=== PATIENT | female | born 2000 | race Caucasian/White ===

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

== ENCOUNTER 2019-02-28 20:21 | Inpatient (IN) | payer MEDICAID ==
[2019-02-28] MEDS ORDERED: Ondansetron 4 MG/2 ML SDV IVPUSH ONE (21:07)
[2019-02-28] MEDS ORDERED: Sodium Chloride 0.9% 1,000 ML IV SCH ×2 (21:15→23:00)
[2019-02-28] MEDS: Sodium Chloride 0.9% 10 ML Syringe FLUSH PRN (21:32)
[2019-02-28] MEDS ORDERED: Potassium Chloride 10 MEQ in Premix Bag 1 BAG IV ONE (22:54)
[2019-02-28] MEDS ORDERED: cefTRIAXone 1 GM in Sodium Chloride 0.9% 100 ML IV ONE (23:07)
--- NOTE | 2019-02-28 23:09 | EDM.PDOC ---
ED HPI GENERAL MEDICAL PROBLEM - General Chief Complaint: General Stated Complaint: 9wks pg vomiting fever headache Time Seen by Provider: 02/28/19 20:45 Source of Information: Reports: Patient, RN Notes Reviewed - History of Present Illness INITIAL COMMENTS - FREE TEXT/NARRATIVE: 18-year-old female had a onset symptoms of bladder infection about 2 or 3 days ago. She did call into the clinic yesterday, did have a urinalysis checked which did show UTI. Started on doxycycline. However symptoms of nausea vomiting worsened yesterday afternoon and evening and she continued with quite severe difficulty with further nausea vomiting today. He states she's been unable to eat today and difficulty keeping any type of clear liquids down. She feels weak and dizzy this evening. Did have fever chills earlier today, continues with chills this evening. She is about 9 weeks 3 para 1. She did have some difficulty with morning sickness early in the but had been doing relatively well up until a couple of days ago. No abdominal or pelvic pain or cramping at this time. No chest pain or difficulty breathing. 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 REFINER: Reports: Acetaminophen - Related Data Allergies Allergy/AdvReac Type Severity Reaction Status Date / Time latex Allergy Rash Verified 12/08/18 15:44 peanut Allergy Anaphylactic Verified 12/08/18 15:44 Shock Penicillins Allergy Anaphylactic Verified 12/08/18 15:44 Shock shellfish derived Allergy Anaphylactic Verified 12/08/18 15:44 Shock Home Meds: Home Meds ALPRAZolam [Alprazolam] 0.25 mg PO BID 12/08/18 [History] Escitalopram [Lexapro] 10 mg PO DAILY 12/08/18 [History] Ondansetron HCl [Zofran] 8 mg PO Q8H PRN 12/08/18 [History] Vits #93/Iron Fum/FA [ Formula Tablet] 1 tab PO DAILY 12/08/18 [History] Acetaminophen/oxyCODONE [Percocet 325-5 MG] 2 tab PO Q4H PRN tablet 12/09/18 [ Rx] Ibuprofen 600 mg PO Q4H PRN #30 tablet 12/09/18 [Rx] Past Medical History Cardiovascular History: Reports: None Respiratory History: Reports: None Gastrointestinal History: Reports: GERD, PUD Other Gastrointestinal History: gastric ulcer Genitourinary History: Reports: UTI, Recurrent CUSTOMER CONTACT SPECIALIST History: Reports: Endometriosis, , Spontaneous , Other ( See Below) Other CUSTOMER CONTACT SPECIALIST History: AMENORRHEA, DERMOID CYST OF OVARY, GBS+ Musculoskeletal History: Reports: None Neurological History: Reports: Headaches, Chronic, Other (See Below) Other Neuro History: DIZZINESS, SYNCOPE Psychiatric History: Reports: Anxiety, Depression Other Psychiatric History: off medication since being . went off meds 9 weeks ago Endocrine/Metabolic History: Reports: None Hematologic History: Reports: Anemia Immunologic History: Reports: None Oncologic (Cancer) History: Reports: None Dermatologic History: Reports: None - Past Surgical History Head Surgeries/Procedures: Reports: None HEENT Surgical History: Reports: Oral Surgery Other HEENT Surgeries/Procedures: wisdom teeth removal Cardiovascular Surgical History: Reports: None Respiratory Surgical History: Reports: None Female Surgical History: Reports: D&C, Other (See Below) Other Female Surgeries/Procedures: 2-para 1; misscarriage Endocrine Surgical History: Reports: None Musculoskeletal Surgical History: Reports: None Oncologic Surgical History: Reports: None Dermatological Surgical History: Reports: None Social & Family History - Family History Family Medical History: Noncontributory Cardiac: Reports: OK Respiratory: Reports: Asthma, COPD Neurological: Reports: CVA Psychiatric: Reports: Bipolar Oncologic: Reports: Bladder, Breast, Lung - Tobacco Use Smoking Status *Q: Never Smoker - Caffeine Use Caffeine Use: Reports: Tea - Recreational Drug Use Recreational Drug Use: No - Living Situation & Occupation Living situation: Reports: Single, with Significant Other (Boyfriend), with Family ( ) Occupation: Unemployed ED ROS GENERAL - Review of Systems Review Of Systems: See Below Constitutional: Reports: Fever, Chills, Weakness (Generalized), Decreased Appetite HEENT: Denies: Sinus Problem, Throat Pain Respiratory: Denies: Shortness of Breath, Pleuritic Chest Pain Cardiovascular: Denies: Chest Pain GI/Abdominal: Reports: Abdominal Pain (Intermittent abdominal cramps), Nausea, Vomiting (Severe repetitive) : Reports: Dysuria, Frequency (Mild), Urgency Musculoskeletal: Reports: Back Pain (Mild) Skin: Reports: No Symptoms Neurological: Reports: Dizziness ED EXAM, GENERAL - Physical Exam Exam: See Below General Appearance: Alert, Mild Distress Eye Exam: Bilateral Eye: PERRL Throat/Mouth: Other (Oral mucosa is dry) Head: No: Facial Swelling Neck: Supple Respiratory/Chest: No Respiratory Distress, Lungs Clear, Normal Breath Sounds Cardiovascular: Tachycardia GI/Abdominal: Soft, Tender (Mild upper abdominal tenderness, lower abdomen nontender). No: Guarding, Rebound Back Exam: CVA Tenderness (L), CVA Tenderness (R) (Mild), Other Extremities: Normal Inspection, Normal Range of Motion. No: Pedal Edema Skin Exam: Warm, Dry, Pallor. No: Rash Course - Vital Signs Last Recorded V/S: Last Vital Signs Temp 98.6 F 02/28/19 20:27 Pulse 114 H 02/28/19 20:27 Resp 18 02/28/19 20:27 BP 128/63 02/28/19 20:27 Pulse Ox 96 02/28/19 20:27 - Orders/Labs/Meds Orders: Active Orders 24 hr Category Date Time Status Peripheral IV Care [RC] . DIRECTED Care 02/28/19 21:08 Active Potassium Chloride [KCl 10 MEQ in Water 100 ML] 10 meq Med 02/28/19 22:54 Active Premix Bag 1 bag IV ONETIME Sodium Chloride 0.9% [Normal Saline] 1,000 ml Med 02/28/19 23:00 Active IV ASDIRECTED Sodium Chloride 0.9% [Normal Saline] 1,000 ml Med 02/28/19 21:15 Active IV ONETIME Sodium Chloride 0.9% [Saline Flush] Med 02/28/19 21:08 Active 10 ml FLUSH ASDIRECTED PRN cefTRIAXone [Rocephin] 1 gm Med 02/28/19 23:07 Active Sodium Chloride 0.9% [Normal Saline] 100 ml IV ONETIME Peripheral IV Insertion Adult [OM.PC] Stat Oth 02/28/19 21:07 Ordered Medication Orders Sodium Chloride (Normal Saline) 1,000 mls @ 999 mls/hr IV ONETIME PASQUALE Last Admin: 02/28/19 21:32 Dose: 999 mls/hr Potassium Chloride 10 meq/ (Premix) 100 mls @ 100 mls/hr IV ONETIME ONE Stop: 02/28/19 23:53 Sodium Chloride (Normal Saline) 1,000 mls @ 500 mls/hr IV ASDIRECTED PASQUALE Ceftriaxone Sodium 1 gm/ (Sodium Chloride) 100 mls @ 200 mls/hr IV ONETIME ONE Stop: 02/28/19 23:36 Sodium Chloride (Saline Flush) 10 ml FLUSH ASDIRECTED PRN PRN Reason: Keep Vein Open Last Admin: 02/28/19 21:32 Dose: 10 ml Labs: Laboratory Tests 02/28/19 02/28/19 02/28/19 Range/Units 21:33 21:33 21:33 WBC 12.42 H (3.98-10.04) K/mm3 RBC 4.21 (3.98-5.22) M/mm3 Hgb 9.6 L (11.2-15.7) gm/L Hct 30.5 L (34.1-44.9) % MCV 72.4 L (79.4-94.8) fl MCH 22.8 L (25.6-32.2) pg MCHC 31.5 L (32.2-35.5) g/dl RDW Std Deviation 45.0 (36.4-46.3) fL Plt Count 146 L (182-369) K/mm3 MPV 11.2 (9.4-12.3) fl Neutrophils % (Manual) 83 H (40-60) % Band Neutrophils % 0 (0-10) % Lymphocytes % (Manual) 14 L (20-40) % Atypical Lymphs % 1 % Monocytes % (Manual) 2 (2-10) % Eosinophils % (Manual) 0 L (0.7-5.8) % Basophils % (Manual) 0 L (0.1-1.2) Platelet Estimate Adequate Polychromasia Few Anisocytosis 1+ slight Microcytosis 1+ slight Ovalocytes Few RBC Morph Comment Not Reportable Sodium 132 L (136-145) mEq/L Potassium 2.6 L (3.5-5.1) mEq/L Chloride 99 (98-107) mEq/L Carbon Dioxide 20 L (21-32) mEq/L Anion Gap 15.6 H (5-15) BUN 6 L (7-18) mg/dL Creatinine 0.7 (0.55-1.02) mg/dL Est Cr Clr Drug Dosing 111.62 mL/min Estimated GFR (MDRD) > 60 (>60) mL/min BUN/Creatinine Ratio 8.6 L (14-18) Glucose 133 H (74-106) mg/dL Calcium 8.6 (8.5-10.1) mg/dL Total Bilirubin 0.4 (0.2-1.0) mg/dL AST 17 (15-37) U/L ALT 23 (14-59) U/L Alkaline Phosphatase 89 (46-116) U/L C-Reactive Protein 21.2 H* (<1.0) mg/dL Total Protein 7.3 (6.4-8.2) g/dl Albumin 3.0 L (3.4-5.0) g/dl Globulin 4.3 gm/dL Albumin/Globulin Ratio 0.7 L (1-2) Urine Color (Yellow) Urine Appearance (Clear) Urine pH (5.0-8.0) Ur Specific [place] (1.005-1.030) Urine Protein (Negative) Urine Glucose (UA) (Negative) Urine Ketones (Negative) Urine Occult Blood (Negative) Urine Nitrite (Negative) Urine Bilirubin (Negative) Urine Urobilinogen (0.2-1.0) Ur Leukocyte Esterase (Negative) Urine RBC (0-5) /hpf Urine WBC (0-5) /hpf Urine WBC Clumps (NOT SEEN) /hpf Ur Squamous Epith Cells (0-5) /hpf Ur Transition Epith Cell (0-5) Ur Renal Epithelial Cell (0-5) /hpf Urine Bacteria (FEW) /hpf Hyaline Casts (0-5) /lpf Urine Mucus (FEW) /hpf 02/28/19 Range/Units 21:53 WBC (3.98-10.04) K/mm3 RBC (3.98-5.22) M/mm3 Hgb (11.2-15.7) gm/L Hct (34.1-44.9) % MCV (79.4-94.8) fl MCH (25.6-32.2) pg MCHC (32.2-35.5) g/dl RDW Std Deviation (36.4-46.3) fL Plt Count (182-369) K/mm3 MPV (9.4-12.3) fl Neutrophils % (Manual) (40-60) % Band Neutrophils % (0-10) % Lymphocytes % (Manual) (20-40) % Atypical Lymphs % % Monocytes % (Manual) (2-10) % Eosinophils % (Manual) (0.7-5.8) % Basophils % (Manual) (0.1-1.2) Platelet Estimate Polychromasia Anisocytosis Microcytosis Ovalocytes RBC Morph Comment Sodium (136-145) mEq/L Potassium (3.5-5.1) mEq/L Chloride (98-107) mEq/L Carbon Dioxide (21-32) mEq/L Anion Gap (5-15) BUN (7-18) mg/dL Creatinine (0.55-1.02) mg/dL Est Cr Clr Drug Dosing mL/min Estimated GFR (MDRD) (>60) mL/min BUN/Creatinine Ratio (14-18) Glucose (74-106) mg/dL Calcium (8.5-10.1) mg/dL Total Bilirubin (0.2-1.0) mg/dL AST (15-37) U/L ALT (14-59) U/L Alkaline Phosphatase (46-116) U/L C-Reactive Protein (<1.0) mg/dL Total Protein (6.4-8.2) g/dl Albumin (3.4-5.0) g/dl Globulin gm/dL Albumin/Globulin Ratio (1-2) Urine Color Light yellow (Yellow) Urine Appearance Cloudy H (Clear) Urine pH 6.0 (5.0-8.0) Ur Specific [place] 1.020 (1.005-1.030) Urine Protein 3+ H (Negative) Urine Glucose (UA) Negative (Negative) Urine Ketones Trace H (Negative) Urine Occult Blood 1+ H (Negative) Urine Nitrite Positive H (Negative) Urine Bilirubin Negative (Negative) Urine Urobilinogen 1.0 (0.2-1.0) Ur Leukocyte Esterase 1+ H (Negative) Urine RBC 5-10 H (0-5) /hpf Urine WBC 50-75 H (0-5) /hpf Urine WBC Clumps Many (NOT SEEN) /hpf Ur Squamous Epith Cells 0-5 (0-5) /hpf Ur Transition Epith Cell 0-5 (0-5) Ur Renal Epithelial Cell 0-5 (0-5) /hpf Urine Bacteria Moderate H (FEW) /hpf Hyaline Casts 0-5 (0-5) /lpf Urine Mucus Few (FEW) /hpf Meds: Medications Generic Name Dose Route Start Last Admin Trade Name Freq PRN Reason Stop Dose Admin Sodium Chloride 1,000 mls @ 999 mls/hr 02/28/19 21:15 02/28/19 21:32 Normal Saline IV 999 mls/hr ONETIME PASQUALE Administration Potassium Chloride 10 meq/ 100 mls @ 100 mls/hr 02/28/19 22:54 Premix IV 02/28/19 23:53 ONETIME ONE Sodium Chloride 1,000 mls @ 500 mls/hr 02/28/19 23:00 Normal Saline IV ASDIRECTED PASQUALE Ceftriaxone Sodium 1 gm/ 100 mls @ 200 mls/hr 02/28/19 23:07 Sodium Chloride IV 02/28/19 23:36 ONETIME ONE Sodium Chloride 10 ml 02/28/19 21:08 02/28/19 21:32 Saline Flush FLUSH 10 ml ASDIRECTED PRN Administration Keep Vein Open Discontinued Medications Generic Name Dose Route Start Last Admin Trade Name Freq PRN Reason Stop Dose Admin Ondansetron HCl 4 mg 02/28/19 21:07 02/28/19 21:32 Zofran IVPUSH 02/28/19 21:08 4 mg ONETIME ONE Administration - Re-Assessments/Exams Free Text/Narrative Re-Assessment/Exam: 02/28/19 23:25 Initial treatment was with 1 L normal saline and Zofran 4 mg IV. With that she' s had no further vomiting while here in the ED. However her white blood count has come back mildly elevated at 12,400, 83 segs 0 bands. C-reactive protein is quite elevated at 21.2. CO2 is low at 20, potassium very low at 2.6. UA shows moderate bacteria with many WBCs nitrite and leukocyte positive. She does have symptoms and findings compatible with pyelonephritis. Patient will definitely benefit him admission, IV antibiotics, IV fluid, IV potassium. IV potassium has been ordered. She does have history of penicillin allergy which occurred 7 years ago at age 11. She states she did have some swelling of her throat, not sure if there was a rash or hives. We'll start with a test dose of Rocephin make sure she tolerates that before infusing remainder of dosage. Departure - Departure Time of Disposition: 23:08 Disposition: Admitted As Inpatient 65 Condition: Serious Clinical Impression: First trimester , Pyelonephritis, Hypokalemia, Dehydration - Discharge Information Referrals: Cresencio Bravo MD [Primary Care Provider] - Forms: ED Department Discharge ED Communication - Discussed Case With (1) Discussed Case With (1): Admitting Provider (Dr Bravo, decision to admit at about 23:00) - My Orders Last 24 Hours: My Active Orders 02/28/19 21:07 Peripheral IV Insertion Adult [OM.PC] Stat 02/28/19 21:08 Peripheral IV Care [RC] . DIRECTED Sodium Chloride 0.9% [Saline Flush] 10 ml FLUSH ASDIRECTED PRN 02/28/19 21:15 Sodium Chloride 0.9% [Normal Saline] 1,000 ml IV ONETIME 02/28/19 22:54 Potassium Chloride [KCl 10 MEQ in Water 100 ML] 10 meq Premix Bag 1 bag IV ONETIME 02/28/19 23:00 Sodium Chloride 0.9% [Normal Saline] 1,000 ml IV ASDIRECTED 02/28/19 23:07 cefTRIAXone [Rocephin] 1 gm Sodium Chloride 0.9% [Normal Saline] 100 ml IV ONETIME - Assessment/Plan Last 24 Hours: My Active Orders 02/28/19 21:07 Peripheral IV Insertion Adult [OM.PC] Stat 02/28/19 21:08 Peripheral IV Care [RC] . DIRECTED Sodium Chloride 0.9% [Saline Flush] 10 ml FLUSH ASDIRECTED PRN 02/28/19 21:15 Sodium Chloride 0.9% [Normal Saline] 1,000 ml IV ONETIME 02/28/19 22:54 Potassium Chloride [KCl 10 MEQ in Water 100 ML] 10 meq Premix Bag 1 bag IV ONETIME 02/28/19 23:00 Sodium Chloride 0.9% [Normal Saline] 1,000 ml IV ASDIRECTED 02/28/19 23:07 cefTRIAXone [Rocephin] 1 gm Sodium Chloride 0.9% [Normal Saline] 100 ml IV ONETIME
[2019-03-01] MEDS: Ondansetron 4 MG/2 ML SDV IVPUSH PRN ×3 (00:21→20:32)
[2019-03-01] MEDS: Acetaminophen 325 MG Tab PO PRN (00:21)
[2019-03-01] MEDS: Sodium Chloride 0.9% with KCl 1,000 ML IV SCH ×3 (02:19→20:36)
[2019-03-01] MEDS: Sodium Chloride 0.9% 10 ML Syringe FLUSH PRN (09:19)
--- NOTE | 2019-03-01 12:26 | PCM.LDHP ---
L&D History of Present Illness - General Date of Service: 03/01/19 Admit Problem/Dx: Patient Status Order with Admit Dx/Problem 02/28/19 23:21 Patient Status [ADT] Routine Admission Diagnosis/Problem Admission Diagnosis/Problem with flank pain, antepartum 03/01/19 12:18 Automated is a 18-year-old 3 para 1011 white female at 9-3/7 weeks gestational age upon the admission for left flank pain and suspected left pyelonephritis. She reports a slow increase in pain left lower quadrant, left flank and left CVA. Also reports fever up to 103. She denies any dysuria, blood in her urine, contractions or -related problems. She does still feel with some nausea, breast tenderness and fullness in her abdomen. Dilation emergency room showed increased white blood cells and findings on urinalysis consistent with urinary tract action. Her white count was mildly elevated and she is admitted with a diagnosis of left pyelonephritis. 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 KAREN of 09/30/2019 based upon an LMP of and supported by ultrasound done early in the . Past medical history: 1. Vaginal delivery 1. 2. Anxiety and depression 3. Left ovarian dermoid cyst-removed. 4. uterine bleeding Past surgical history 1. Auxier teeth extraction 2. D&C 2 for bleeding 3. 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 Father is Jemal Schreiber and she does not use any significant loss of alcohol, drugs or tobacco. Review of systems: Patient this time reports left CVA tenderness, left flank pain and some discomfort in the area of her bladder. She does report symptoms. Denies any bleeding. Skin: Negative Lungs: No infectious symptoms or shortness of breath Cardiovascular: No chest pain or exercise intolerance Breasts: No lumps, changes in size, pain, dimpling, discharge or axillary or supraclavicular concerns. GI: Negative : See history of present illness Musculoskeletal: Negative Neurological: Negative In general the patient is well-developed, well-nourished, pleasant female of stated age in mild discomfort secondary to left flank pain and CVA tenderness. Skin is warm dry without lesions. HEENT, neck and back within normal limits. Lungs are clear with good breath sounds in all lung abbasi. Cardiovascular exam shows regular and rhythm without murmurs. Abdomen is flat, soft, obese, tenderness in the superior area. Left lower quadrant minimal discomfort noted. No inguinal lymphadenopathy or hernias are noted. Genital exam is deferred. Extremities and neurological exam are grossly within normal limits. Source of Information: Patient History Limitations: Reports: No Limitations - Related Data Allergies/Adverse Reactions: Allergies Allergy/AdvReac Type Severity Reaction Status Date / Time latex Allergy Rash Verified 12/08/18 15:44 peanut Allergy Anaphylactic Verified 12/08/18 15:44 Shock Penicillins Allergy Anaphylactic Verified 12/08/18 15:44 Shock shellfish derived Allergy Anaphylactic Verified 12/08/18 15:44 Shock Home Medications: Home Meds ALPRAZolam [Alprazolam] 0.25 mg PO BID 12/08/18 [History] Escitalopram [Lexapro] 10 mg PO DAILY 12/08/18 [History] Ondansetron HCl [Zofran] 8 mg PO Q8H PRN 12/08/18 [History] Vits #93/Iron Fum/FA [ Formula Tablet] 1 tab PO DAILY 12/08/18 [History] Acetaminophen/oxyCODONE [Percocet 325-5 MG] 2 tab PO Q4H PRN tablet 12/09/18 [ Rx] Ibuprofen 600 mg PO Q4H PRN #30 tablet 12/09/18 [Rx] Past Medical History - Past Health History Medical/Surgical History: Denies Medical/Surgical History Cardiovascular History: Reports: None Respiratory History: Reports: None Gastrointestinal History: Reports: GERD, PUD Other Gastrointestinal History: gastric ulcer Genitourinary History: Reports: UTI, Recurrent 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 went off meds 9 weeks ago Endocrine/Metabolic History: Reports: None Hematologic History: Reports: Anemia Immunologic History: Reports: None Oncologic (Cancer) History: Reports: None Dermatologic History: Reports: None - Past Surgical History Head Surgeries/Procedures: Reports: None HEENT Surgical History: Reports: Oral Surgery Other HEENT Surgeries/Procedures: wisdom teeth removal Cardiovascular Surgical History: Reports: None Respiratory Surgical History: Reports: None Female Surgical History: Reports: D&C, Other (See Below) Other Female Surgeries/Procedures: 2-para 1; misscarriage Endocrine Surgical History: Reports: None Musculoskeletal Surgical History: Reports: None Oncologic Surgical History: Reports: None Dermatological Surgical History: Reports: None Social & Family History - Family History Family Medical History: Noncontributory Cardiac: Reports: NM Respiratory: Reports: Asthma, COPD Neurological: Reports: CVA Psychiatric: Reports: Bipolar Oncologic: Reports: Bladder, Breast, Lung - Tobacco Use Smoking Status *Q: Never Smoker Second Hand Smoke Exposure: No - Caffeine Use Caffeine Use: Reports: Tea - Recreational Drug Use Recreational Drug Use: No - Living Situation & Occupation Living situation: Reports: Single, with Significant Other (Boyfriend), with Family ( infant) Occupation: Unemployed H&P Review of Systems - Review of Systems: Review Of Systems: See Below L&D Exam - Exam Exam: See Below - Vital Signs Vital Signs: Last Vital Signs Temp 36.6 C 03/01/19 08:41 Pulse 74 03/01/19 08:41 Resp 14 03/01/19 08:41 BP 99/63 03/01/19 08:41 Pulse Ox 100 03/01/19 08:41 Weight: 80.739 kg - Patient Data Lab Results Last 24 hrs: Laboratory Results - last 24 hr 02/28/19 02/28/19 02/28/19 Range/Units 21:33 21:33 21:33 WBC 12.42 H (3.98-10.04) K/mm3 RBC 4.21 (3.98-5.22) M/mm3 Hgb 9.6 L (11.2-15.7) gm/L Hct 30.5 L (34.1-44.9) % MCV 72.4 L (79.4-94.8) fl MCH 22.8 L (25.6-32.2) pg MCHC 31.5 L (32.2-35.5) g/dl RDW Std Deviation 45.0 (36.4-46.3) fL Plt Count 146 L (182-369) K/mm3 MPV 11.2 (9.4-12.3) fl Neutrophils % (Manual) 83 H (40-60) % Band Neutrophils % 0 (0-10) % Lymphocytes % (Manual) 14 L (20-40) % Atypical Lymphs % 1 % Monocytes % (Manual) 2 (2-10) % Eosinophils % (Manual) 0 L (0.7-5.8) % Basophils % (Manual) 0 L (0.1-1.2) Platelet Estimate Adequate Polychromasia Few Anisocytosis 1+ slight Microcytosis 1+ slight Ovalocytes Few RBC Morph Comment Not Reportable Sodium 132 L (136-145) mEq/L Potassium 2.6 L (3.5-5.1) mEq/L Chloride 99 (98-107) mEq/L Carbon Dioxide 20 L (21-32) mEq/L Anion Gap 15.6 H (5-15) BUN 6 L (7-18) mg/dL Creatinine 0.7 (0.55-1.02) mg/dL Est Cr Clr Drug Dosing 111.62 mL/min Estimated GFR (MDRD) > 60 (>60) mL/min BUN/Creatinine Ratio 8.6 L (14-18) Glucose 133 H (74-106) mg/dL Calcium 8.6 (8.5-10.1) mg/dL Total Bilirubin 0.4 (0.2-1.0) mg/dL AST 17 (15-37) U/L ALT 23 (14-59) U/L Alkaline Phosphatase 89 (46-116) U/L C-Reactive Protein 21.2 H* (<1.0) mg/dL Total Protein 7.3 (6.4-8.2) g/dl Albumin 3.0 L (3.4-5.0) g/dl Globulin 4.3 gm/dL Albumin/Globulin Ratio 0.7 L (1-2) Urine Color (Yellow) Urine Appearance (Clear) Urine pH (5.0-8.0) Ur Specific Wallace (1.005-1.030) Urine Protein (Negative) Urine Glucose (UA) (Negative) Urine Ketones (Negative) Urine Occult Blood (Negative) Urine Nitrite (Negative) Urine Bilirubin (Negative) Urine Urobilinogen (0.2-1.0) Ur Leukocyte Esterase (Negative) Urine RBC (0-5) /hpf Urine WBC (0-5) /hpf Urine WBC Clumps (NOT SEEN) /hpf Ur Squamous Epith Cells (0-5) /hpf Ur Transition Epith Cell (0-5) Ur Renal Epithelial Cell (0-5) /hpf Urine Bacteria (FEW) /hpf Hyaline Casts (0-5) /lpf Urine Mucus (FEW) /hpf 02/28/19 03/01/19 Range/Units 21:53 06:17 WBC (3.98-10.04) K/mm3 RBC (3.98-5.22) M/mm3 Hgb (11.2-15.7) gm/L Hct (34.1-44.9) % MCV (79.4-94.8) fl MCH (25.6-32.2) pg MCHC (32.2-35.5) g/dl RDW Std Deviation (36.4-46.3) fL Plt Count (182-369) K/mm3 MPV (9.4-12.3) fl Neutrophils % (Manual) (40-60) % Band Neutrophils % (0-10) % Lymphocytes % (Manual) (20-40) % Atypical Lymphs % % Monocytes % (Manual) (2-10) % Eosinophils % (Manual) (0.7-5.8) % Basophils % (Manual) (0.1-1.2) Platelet Estimate Polychromasia Anisocytosis Microcytosis Ovalocytes RBC Morph Comment Sodium 138 (136-145) mEq/L Potassium 3.2 L (3.5-5.1) mEq/L Chloride 105 (98-107) mEq/L Carbon Dioxide 21 (21-32) mEq/L Anion Gap 15.2 H (5-15) BUN 4 L (7-18) mg/dL Creatinine 0.6 (0.55-1.02) mg/dL Est Cr Clr Drug Dosing 130.23 mL/min Estimated GFR (MDRD) > 60 (>60) mL/min BUN/Creatinine Ratio 6.7 L (14-18) Glucose 114 H (74-106) mg/dL Calcium 8.2 L (8.5-10.1) mg/dL Total Bilirubin 0.3 (0.2-1.0) mg/dL AST 15 (15-37) U/L ALT 17 (14-59) U/L Alkaline Phosphatase 77 (46-116) U/L C-Reactive Protein (<1.0) mg/dL Total Protein 6.7 (6.4-8.2) g/dl Albumin 2.6 L (3.4-5.0) g/dl Globulin 4.1 gm/dL Albumin/Globulin Ratio 0.6 L (1-2) Urine Color Light yellow (Yellow) Urine Appearance Cloudy H (Clear) Urine pH 6.0 (5.0-8.0) Ur Specific Wallace 1.020 (1.005-1.030) Urine Protein 3+ H (Negative) Urine Glucose (UA) Negative (Negative) Urine Ketones Trace H (Negative) Urine Occult Blood 1+ H (Negative) Urine Nitrite Positive H (Negative) Urine Bilirubin Negative (Negative) Urine Urobilinogen 1.0 (0.2-1.0) Ur Leukocyte Esterase 1+ H (Negative) Urine RBC 5-10 H (0-5) /hpf Urine WBC 50-75 H (0-5) /hpf Urine WBC Clumps Many (NOT SEEN) /hpf Ur Squamous Epith Cells 0-5 (0-5) /hpf Ur Transition Epith Cell 0-5 (0-5) Ur Renal Epithelial Cell 0-5 (0-5) /hpf Urine Bacteria Moderate H (FEW) /hpf Hyaline Casts 0-5 (0-5) /lpf Urine Mucus Few (FEW) /hpf Result Diagrams: 02/28/19 21:33 03/01/19 06:17 Problem List Initiated/Reviewed/Updated: Yes Orders Last 24hrs: Active Orders 24 hr Category Date Time Status Patient Status [ADT] Routine ADT 02/28/19 23:21 Active Activity as Tolerated [RC] .Routine Care 02/28/19 23:26 Active Heart Tones [RC] QSHIFT Care 02/28/19 23:27 Active Vital Signs [RC] 03,09,15,21 Care 02/28/19 23:26 Active Regular Diet [DIET] Diet 03/01/19 Breakfast Active Acetaminophen [Ofirmev] 100 ml Med 03/01/19 10:39 Active IV Q6H Acetaminophen [Tylenol] Med 02/28/19 23:25 Active 650 mg PO Q4H PRN Ondansetron [Zofran] Med 02/28/19 23:22 Active 4 mg IVPUSH Q4HR PRN Sodium Chloride 0.9% [Saline Flush] Med 02/28/19 21:08 Active 10 ml FLUSH ASDIRECTED PRN Sodium Chloride 0.9% with KCl [Normal Saline with 40 Med 03/01/19 01:30 Active mEq KCl] 1,000 ml IV ASDIRECTED Peripheral IV Insertion Adult [OM.PC] Stat Oth 02/28/19 21:07 Ordered Code Status [Resuscitation Status] Routine Resus Stat 03/01/19 01:33 Ordered Medication Orders Acetaminophen (Tylenol) 650 mg PO Q4H PRN PRN Reason: Pain Last Admin: 03/01/19 00:21 Dose: 650 mg Potassium Chloride/Sodium Chloride (Normal Saline With 40 Meq Kcl) 1,000 mls @ 150 mls/hr IV ASDIRECTED PASQUALE Last Admin: 03/01/19 11:07 Dose: 150 mls/hr Infusion: 03/01/19 09:00 Dose: 150 mls/hr Admin: 03/01/19 02:19 Dose: 150 mls/hr Acetaminophen (Ofirmev) 100 mls @ 400 mls/hr IV Q6H PRN PRN Reason: Pain Stop: 03/02/19 10:40 Last Admin: 03/01/19 11:17 Dose: 400 mls/hr Ondansetron HCl (Zofran) 4 mg IVPUSH Q4HR PRN PRN Reason: Nausea Last Admin: 03/01/19 09:19 Dose: 4 mg Admin: 03/01/19 00:21 Dose: 4 mg Sodium Chloride (Saline Flush) 10 ml FLUSH ASDIRECTED PRN PRN Reason: Keep Vein Open Last Admin: 03/01/19 09:19 Dose: 10 ml Admin: 02/28/19 21:32 Dose: 10 ml Assessment/Plan Comment:: 1. 9-3/7 week intrauterine upon admission to the hospital for left pyelonephritis 2.History of dermoid cyst (immature cystic teratoma) removed in late 2018 3. First trimester appears to be progressing well per ultrasound and lab testing 4. Hypokalemia and hyponatremia 5. Mild dehydration Plan: 1. Rocephin 1 g IV every 24 hours 2. Await urine culture results and refine oral antibiotic therapy based upon these. 3. Pain control with IV Tylenol until patient able to tolerate fluids 4. Zofran for nausea 5. IV fluids consisting of normal saline with KCl 40 mEq per liter-to be run at 150 mL an hour to treat patient's dehydration, hypokalemia, hyponatremia and a cousin patient's inability keep oral fluids down 6. Recheck electrolytes after IV fluid rehydration 7. Monitor cardiac activity if possible.
[2019-03-02] MEDS: Ondansetron 4 MG/2 ML SDV IVPUSH PRN (00:07)
[2019-03-02] MEDS: cefTRIAXone 1 GM in Sodium Chloride 0.9% 100 ML IV SCH (00:12)
[2019-03-02] MEDS: Sodium Chloride 0.9% with KCl 1,000 ML IV SCH (05:17)
[2019-03-02] MEDS: Acetaminophen 325 MG Tab PO PRN ×3 (11:07→21:39)
--- NOTE | 2019-03-02 12:31 | PCM.SN ---
- Free Text/Narrative Note: Candice is a 18-year-old multigravida female who is presently receiving Rocephin IV for pyelonephritis. She's had very slow improvement in her discomfort. She still is had 2 febrile episodes in the last 24 hours. She also was noted to have hypokalemia and hyponatremia. Both these have resolved with IV fluid therapy. Patient's had some nausea but this has improved. She is able to keep fluids down most of the time. She has symptoms. Lungs are clear with good breath sounds in all lung abbasi. Cardiovascular exam shows regular and rhythm. Acne is inking machine tender right side greater than left side. No significant abdominal tenderness is noted. Uterus is not palpated above the pubic bone at this time yet. Urine culture shows Escherichia coli which is sensitive to cephalosporins and Macrobid and Bactrim DS. Sodium is 137. Potassium is 3.8. Assessment: 1. Pyelonephritissmall degree of improvement over time of admission 2. Early pregnancyfirst trimester. Progressing well. Doppler tones are heard. Plan: 1. Continue Rocephin until patient is afebrile times at least 24 hours at which time we will transfer patient to Keflex 240 mg by mouth 4 times a day 7 more days. Monitor for short period time and then discharged from the hospital if stays stable. 2. Tylenol for discomfort 3. Zofran when necessary for nausea
[2019-03-02] MEDS: Ondansetron 4 MG Tab.DIS PO PRN ×2 (13:20→20:36)
[2019-03-03] MEDS: cefTRIAXone 1 GM in Sodium Chloride 0.9% 100 ML IV SCH (00:14)
[2019-03-03] MEDS: Acetaminophen 325 MG Tab PO PRN (04:06)
--- NOTE | 2019-03-03 05:38 | PCM.DCSUM1 ---
Discharge Summary - Hospital Course Free Text/Narrative:: Candice is a 18-year-old 3 para 1011 white female at 9-3/7 weeks gestational age upon the admission for left flank pain and suspected left pyelonephritis. She reports a slow increase in pain left lower quadrant, left flank and left CVA. Also reports fever up to 103. She denies any dysuria, blood in her urine, contractions or -related problems. She does still feel with some nausea, breast tenderness and fullness in her abdomen. Dilation emergency room showed increased white blood cells and findings on urinalysis consistent with urinary tract action. Her white count was mildly elevated and she is admitted with a diagnosis of left pyelonephritis. Patient was started on Rocephin, nausea is treated with Zofran. Initially treated with IV Tylenol than oral Tylenol for headache and for temperature elevation. She slowly made progress and over the course of the last 24 hours admission has been afebrile. Pain is improved and patient is doing well. Laboratory testing has improved and sodium and potassium have normalized with IV therapy. Urine culture returned showing Escherichia coli which is sensitive to cephalosporins. Patient is discharged home on 03/03/2019 in good condition. Diagnosis: Stroke: No - Discharge Data Discharge Date: 03/03/19 Discharge Disposition: Home, Self-Care 01 Condition: Good - Patient Instructions Diet: Regular Diet as Tolerated Activity: As Tolerated Driving: May Drive Today Showering/Bathing: May Shower (May take a bath) Notify Provider of: Fever, Increased Pain, Swelling and Redness, Nausea and/or Vomiting - Discharge Plan Prescriptions/Med Rec: Cephalexin [Keflex] 250 mg PO Q6HR #30 capsule Home Medications: Home Meds ALPRAZolam [Alprazolam] 0.25 mg PO BID 12/08/18 [History] Escitalopram [Lexapro] 10 mg PO DAILY 12/08/18 [History] Ondansetron HCl [Zofran] 8 mg PO Q8H PRN 12/08/18 [History] Vits #93/Iron Fum/FA [ Formula Tablet] 1 tab PO DAILY 12/08/18 [History] Acetaminophen/oxyCODONE [Percocet 325-5 MG] 2 tab PO Q4H PRN tablet 12/09/18 [ Rx] Ibuprofen 600 mg PO Q4H PRN #30 tablet 12/09/18 [Rx] Acetaminophen [Tylenol] 650 mg PO Q4H PRN tablet 03/03/19 [Rx] Cephalexin [Keflex] 250 mg PO Q6HR #30 capsule 03/03/19 [Rx] Forms: ED Department Discharge Referrals: Cresencio Bravo MD [Primary Care Provider] - (Return to clinicDr. Bravo1 week.) - Discharge Summary/Plan Comment DC Time >30 min.: No Discharge Summary/Plan Comment: Discharge instructions: 1. Discharge home 2. Diet, activity and follow-up discussed with patient. Recommend diet with increased calories and calcium. 3. Precautions given concern increased pain, bleeding, temperature, signs/ symptoms of DVT/PE. 4. Medications per home medication was printed, discussed with and given to the patient. 5. Return to clinic-Dr. Bravo[facility] in 1 week. Diagnosis: 1. 9 week with pyelonephritis Condition: Good - Patient Data Vitals - Most Recent: Last Vital Signs Temp 37.4 C 03/03/19 04:20 Pulse 75 03/03/19 04:09 Resp 14 03/03/19 04:09 BP 118/55 L 03/03/19 04:09 Pulse Ox 99 03/03/19 04:09 Weight - Most Recent: 80.739 kg I&O - Last 24 hours: Intake & Output 03/02/19 03/02/19 03/03/19 14:59 22:59 06:59 Intake Total 320 100 Output Total 950 1000 Balance -630 -900 Lab Results - Last 24 hrs: Laboratory Results - last 24 hr 03/02/19 Range/Units 06:00 Sodium 137 (136-145) mEq/L Potassium 3.8 (3.5-5.1) mEq/L Chloride 107 (98-107) mEq/L Carbon Dioxide 20 L (21-32) mEq/L Anion Gap 13.8 (5-15) BUN 3 L (7-18) mg/dL Creatinine 0.6 (0.55-1.02) mg/dL Est Cr Clr Drug Dosing 130.23 mL/min Estimated GFR (MDRD) > 60 (>60) mL/min BUN/Creatinine Ratio 5.0 L (14-18) Glucose 92 (74-106) mg/dL Calcium 8.4 L (8.5-10.1) mg/dL Med Orders - Current: Current Medications Acetaminophen (Tylenol) 650 mg PO Q4H PRN PRN Reason: Pain Last Admin: 03/03/19 04:06 Dose: 650 mg Ceftriaxone Sodium 1 gm/ (Sodium Chloride) 100 mls @ 200 mls/hr IV Q24H [place] Last Admin: 03/03/19 00:14 Dose: 200 mls/hr Ondansetron HCl (Zofran) 4 mg IVPUSH Q4HR PRN PRN Reason: Nausea Last Admin: 03/02/19 00:07 Dose: 4 mg Ondansetron HCl (Zofran Odt) 4 mg PO Q4H PRN PRN Reason: Nausea/Vomiting Last Admin: 03/02/19 20:36 Dose: 4 mg Sodium Chloride (Saline Flush) 10 ml FLUSH ASDIRECTED PRN PRN Reason: Keep Vein Open Last Admin: 03/01/19 09:19 Dose: 10 ml Discontinued Medications Sodium Chloride (Normal Saline) 1,000 mls @ 999 mls/hr IV ONETIME [facility] Last Admin: 02/28/19 21:32 Dose: 999 mls/hr Potassium Chloride 10 meq/ (Premix) 100 mls @ 100 mls/hr IV ONETIME ONE Stop: 02/28/19 23:53 Last Admin: 02/28/19 23:42 Dose: 100 mls/hr Sodium Chloride (Normal Saline) 1,000 mls @ 500 mls/hr IV ASDIRECTED [facility] Last Admin: 02/28/19 23:41 Dose: 500 mls/hr Ceftriaxone Sodium 1 gm/ (Sodium Chloride) 100 mls @ 200 mls/hr IV ONETIME ONE Stop: 02/28/19 23:36 Last Admin: 02/28/19 23:41 Dose: 200 mls/hr Potassium Chloride 5 meq/ (Sodium Chloride) 1,002.5 mls @ 150 mls/hr IV ASDIRECTED [facility] Potassium Chloride/Sodium Chloride (Normal Saline With 40 Meq Kcl) 1,000 mls @ 150 mls/hr IV ASDIRECTED [facility] Last Admin: 03/02/19 05:17 Dose: 125 mls/hr Acetaminophen (Ofirmev) 100 mls @ 400 mls/hr IV NOW ONE Stop: 03/01/19 09:42 Last Admin: 03/01/19 13:14 Dose: Not Given Acetaminophen (Ofirmev) 100 mls @ 400 mls/hr IV Q6H PRN PRN Reason: Pain Stop: 03/02/19 10:40 Last Admin: 03/02/19 02:41 Dose: 400 mls/hr Ondansetron HCl (Zofran) 4 mg IVPUSH ONETIME ONE Stop: 02/28/19 21:08 Last Admin: 02/28/19 21:32 Dose: 4 mg
== END 2019-03-03 11:15 | disposition home or self-care (01) | DRG 832 ==
LOC: JD.ED 20:21 → JD.OB 23:19 → OBSVTOIN 03-01 09:00
PROVIDERS: ADMIT Obstetrics & Gynecology; ATTEND Obstetrics & Gynecology
DX: O23.01 Infections of kidney in pregnancy, first trimester (principal); E87.1 Hypo-osmolality and hyponatremia; O99.341 Other mental disorders complicating pregnancy, first trimester; B96.20 Unspecified Escherichia coli [E. coli] as the cause of diseases classified elsewhere; F41.9 Anxiety disorder, unspecified; F32.9 Major depressive disorder, single episode, unspecified; Z3A.09 9 weeks gestation of pregnancy; O99.611 Diseases of the digestive system complicating pregnancy, first trimester; K21.9 Gastro-esophageal reflux disease without esophagitis; O99.011 Anemia complicating pregnancy, first trimester; D64.9 Anemia, unspecified; O99.281 Endocrine, nutritional and metabolic diseases complicating pregnancy, first trimester; E87.6 Hypokalemia; E86.0 Dehydration; Z87.440 Personal history of urinary (tract) infections; Z91.040 Latex allergy status; Z79.899 Other long term (current) drug therapy; Z88.0 Allergy status to penicillin; Z91.013 Allergy to seafood; Z91.010 Allergy to peanuts; Z87.11 Personal history of peptic ulcer disease
CPT/HCPCS: 36415; 80048; 80053; 81001; 85007; 85027; 86140; 96361; 96365; 96368; 96375; 99284; 99284-25; A9270-GY; J0131; J0696; J2405; J3480; J7030; J7040

== ENCOUNTER 2019-03-31 14:24 | Emergency (ER) | payer MEDICAID ==
[2019-03-31] MEDS ORDERED: Ondansetron 4 MG/2 ML SDV IVPUSH ONE (15:08)
[2019-03-31] MEDS ORDERED: Sodium Chloride 0.9% 10 ML Syringe FLUSH PRN (15:08)
[2019-03-31] MEDS ORDERED: Sodium Chloride 0.9% 1,000 ML IV STA (15:08)
[2019-03-31] MEDS ORDERED: HYDROmorphone 0.5 MG/0.5 ML Syringe IVPUSH ONE (15:09)
[2019-03-31] MEDS ORDERED: Acetaminophen 325 MG Tab PO ONE (16:35)
[2019-03-31] MEDS ORDERED: cefTRIAXone 1 GM in Sodium Chloride 0.9% 100 ML IV ONE (16:48)
--- NOTE | 2019-03-31 17:23 | EDM.PDOC ---
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 This started earlier in the week. She saw Dr Mckeon and she was put on macrobid. She not has more flank pain and abdominal pain and a fever. She also has nausea and vomiting. She is worried she may have pyelonphritis. She had it about 4 weeks ago and needed to be admitted. She is 13 weeks gestation with a LNMP of January 03. She is AB1. She called Dr Mckeon's office and he recommended coming in to be checked. She denies cramping, vaginal discharge or bleeding. Onset: Gradual Duration: Day(s): Location: Reports: Abdomen, Back Quality: Reports: Sharp Severity: Moderate Improves with: Reports: None Worsens with: Reports: None Associated Symptoms: Reports: Fever/Chills, Nausea/Vomiting. Denies: Chest Pain , Cough, Headaches, Shortness of Breath Left Flank Pain Score (Numeric/FACES): 5 Right Lower Pelvic Pain Score (Numeric/FACES): 7 - Related Data Allergies Allergy/AdvReac Type Severity Reaction Status Date / Time latex Allergy Rash Verified 12/08/18 15:44 peanut Allergy Anaphylactic Verified 12/08/18 15:44 Shock Penicillins Allergy Anaphylactic Verified 12/08/18 15:44 Shock shellfish derived Allergy Anaphylactic Verified 12/08/18 15:44 Shock Home Meds: Home Meds Ondansetron HCl [Zofran] 8 mg PO Q8H PRN 12/08/18 [History] Vits #93/Iron Fum/FA [ Formula Tablet] 1 tab PO DAILY 12/08/18 [History] Acetaminophen [Tylenol] 650 mg PO Q4H PRN tablet 03/03/19 [Rx] Cephalexin [Keflex] 500 mg PO BID #14 capsule 03/31/19 [Rx] Doxylamine Succinate 1 cap PO TID PRN 03/31/19 [History] Nitrofurantoin Monohyd/M-Cryst [Macrobid 100 mg Capsule] 100 mg PO BID 03/31/19 [History] Past Medical History - Past Health History Medical/Surgical History: Denies Medical/Surgical History Cardiovascular History: Reports: None Respiratory History: Reports: None Gastrointestinal History: Reports: GERD, PUD Other Gastrointestinal History: gastric ulcer Genitourinary History: Reports: UTI, Recurrent 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 went off meds 9 weeks ago Endocrine/Metabolic History: Reports: None Hematologic History: Reports: Anemia Immunologic History: Reports: None Oncologic (Cancer) History: Reports: None Dermatologic History: Reports: None - Past Surgical History Head Surgeries/Procedures: Reports: None HEENT Surgical History: Reports: Oral Surgery Other HEENT Surgeries/Procedures: wisdom teeth removal Cardiovascular Surgical History: Reports: None Respiratory Surgical History: Reports: None Female Surgical History: Reports: D&C, Other (See Below) Other Female Surgeries/Procedures: 2-para 1; misscarriage Endocrine Surgical History: Reports: None Musculoskeletal Surgical History: Reports: None Oncologic Surgical History: Reports: None Dermatological Surgical History: Reports: None Social & Family History - Family History Family Medical History: Noncontributory Cardiac: Reports: [place] Respiratory: Reports: Asthma, COPD Neurological: Reports: CVA Psychiatric: Reports: Bipolar Oncologic: Reports: Bladder, Breast, Lung - Tobacco Use Smoking Status *Q: Never Smoker - Caffeine Use Caffeine Use: Reports: Tea - Recreational Drug Use Recreational Drug Use: No - Living Situation & Occupation Living situation: Reports: Single, with Significant Other (Boyfriend), with Family ( ) Occupation: Unemployed ED ROS GENERAL - Review of Systems Review Of Systems: See Below Constitutional: Reports: Fever HEENT: Reports: No Symptoms Respiratory: Reports: No Symptoms Cardiovascular: Reports: No Symptoms Endocrine: Reports: No Symptoms GI/Abdominal: Reports: Abdominal Pain, Nausea, Vomiting. Denies: Diarrhea : Reports: Dysuria, Flank Pain Musculoskeletal: Reports: No Symptoms Skin: Reports: No Symptoms ED EXAM, RENAL/ - Physical Exam Exam: See Below Exam Limited By: No Limitations General Appearance: Alert, No Apparent Distress Ears: Normal External Exam Nose: Normal Inspection Head: Atraumatic, Normocephalic Neck: Normal Inspection Respiratory/Chest: No Respiratory Distress, Lungs Clear, Normal Breath Sounds Cardiovascular: Regular Rate, Rhythm, No Edema, No Murmur Back Exam: CVA Tenderness (L) Extremities: Normal Inspection Neurological: Alert, Oriented, No Motor/Sensory Deficits Course - Vital Signs Last Recorded V/S: Last Vital Signs Temp 98.1 F 03/31/19 14:51 Pulse 72 03/31/19 14:51 Resp 20 03/31/19 14:51 BP 113/63 03/31/19 14:51 Pulse Ox 98 03/31/19 14:51 - Orders/Labs/Meds Orders: Active Orders 24 hr Category Date Time Status Peripheral IV Care [RC] . DIRECTED Care 03/31/19 15:09 Active OB 1st Tri Sgl 1st Gest [US] Stat Exams 03/31/19 15:10 Taken Retroperitoneal Comp [US] Stat Exams 03/31/19 15:10 Taken Sodium Chloride 0.9% [Saline Flush] Med 03/31/19 15:08 Active 10 ml FLUSH ASDIRECTED PRN ED Antiemetic Medication Reflex [OM.PC] Stat Oth 03/31/19 15:09 Ordered Peripheral IV Insertion Adult [OM.PC] Stat Oth 03/31/19 15:08 Ordered Medication Orders Sodium Chloride (Saline Flush) 10 ml FLUSH ASDIRECTED PRN PRN Reason: Keep Vein Open Last Admin: 03/31/19 16:43 Dose: 10 ml Labs: Laboratory Tests 03/31/19 03/31/19 03/31/19 Range/Units 15:15 15:25 15:25 WBC 11.95 H (3.98-10.04) K/mm3 RBC 4.63 (3.98-5.22) M/mm3 Hgb 10.8 L (11.2-15.7) gm/L Hct 34.4 (34.1-44.9) % MCV 74.3 L (79.4-94.8) fl MCH 23.3 L (25.6-32.2) pg MCHC 31.4 L (32.2-35.5) g/dl RDW Std Deviation 49.2 H (36.4-46.3) fL Plt Count 203 D (182-369) K/mm3 MPV 10.7 (9.4-12.3) fl Neut % (Auto) 76.4 H (34.0-71.1) % Lymph % (Auto) 14.6 L (19.3-51.7) % [place] % (Auto) 8.3 (4.7-12.5) % Eos % (Auto) 0.4 L (0.7-5.8) Baso % (Auto) 0.2 (0.1-1.2) % Neut # (Auto) 9.14 H (1.56-6.13) K/mm3 Lymph # (Auto) 1.74 (1.18-3.74) K/mm3 [place] # (Auto) 0.99 H (0.24-0.36) K/mm3 Eos # (Auto) 0.05 (0.04-0.36) K/mm3 Baso # (Auto) 0.02 (0.01-0.08) K/mm3 Manual Slide Review Abnormal smear Sodium 137 (136-145) mEq/L Potassium 3.5 (3.5-5.1) mEq/L Chloride 103 (98-107) mEq/L Carbon Dioxide 21 (21-32) mEq/L Anion Gap 16.5 H (5-15) BUN 4 L (7-18) mg/dL Creatinine 0.5 L (0.55-1.02) mg/dL Est Cr Clr Drug Dosing 156.27 mL/min Estimated GFR (MDRD) > 60 (>60) mL/min BUN/Creatinine Ratio 8.0 L (14-18) Glucose 86 (74-106) mg/dL Calcium 9.2 (8.5-10.1) mg/dL Total Bilirubin 0.2 (0.2-1.0) mg/dL AST 13 L (15-37) U/L ALT 17 (14-59) U/L Alkaline Phosphatase 117 H (46-116) U/L Total Protein 7.5 (6.4-8.2) g/dl Albumin 3.3 L (3.4-5.0) g/dl Globulin 4.2 gm/dL Albumin/Globulin Ratio 0.8 L (1-2) Lipase 93 (73-393) U/L Urine Color Yellow (Yellow) Urine Appearance Cloudy H (Clear) Urine pH 6.5 (5.0-8.0) Ur Specific [place] 1.020 (1.005-1.030) Urine Protein 1+ H (Negative) Urine Glucose (UA) Negative (Negative) Urine Ketones 1+ H (Negative) Urine Occult Blood Trace-intact H (Negative) Urine Nitrite Positive H (Negative) Urine Bilirubin Negative (Negative) Urine Urobilinogen 0.2 (0.2-1.0) Ur Leukocyte Esterase 2+ H (Negative) Urine RBC 5-10 H (0-5) /hpf Urine WBC 40-50 H (0-5) /hpf Urine WBC Clumps Occasional (NOT SEEN) /hpf Ur Squamous Epith Cells 5-10 H (0-5) /hpf Urine Bacteria Many H (FEW) /hpf Urine Mucus Few (FEW) /hpf Meds: Medications Generic Name Dose Route Start Last Admin Trade Name Freq PRN Reason Stop Dose Admin Sodium Chloride 10 ml 03/31/19 15:08 03/31/19 16:43 Saline Flush FLUSH 10 ml ASDIRECTED PRN Administration Keep Vein Open Discontinued Medications Generic Name Dose Route Start Last Admin Trade Name Freq PRN Reason Stop Dose Admin Acetaminophen 975 mg 03/31/19 16:35 03/31/19 16:43 Tylenol PO 03/31/19 16:36 975 mg NOW ONE Administration Hydromorphone HCl 0.5 mg 03/31/19 15:09 03/31/19 16:38 Dilaudid IVPUSH 03/31/19 15:10 Not Given ONETIME ONE Sodium Chloride 1,000 mls @ 1,000 mls/hr 03/31/19 15:08 03/31/19 15:27 Normal Saline IV 03/31/19 16:07 1,000 mls/hr .BOLUS STA Administration Ceftriaxone Sodium 1 gm/ 100 mls @ 200 mls/hr 03/31/19 16:48 03/31/19 16:53 Sodium Chloride IV 03/31/19 17:17 200 mls/hr ONETIME ONE Administration Ondansetron HCl 4 mg 03/31/19 15:08 03/31/19 15:30 Zofran IVPUSH 03/31/19 15:09 4 mg ONETIME ONE Administration - Re-Assessments/Exams Free Text/Narrative Re-Assessment/Exam: 03/31/19 17:22 I ordered an IV NS labs, UA and an US of her pelvis and flank. Her WBC was elevated at 11.95. Her Hgb was low at 10.8. Her anion gap was elevated at 16.5. Her UA shows a UTI. I ordered rocephin 1mg IV. I did ordered dilaudid for the pain but she refused and wanted tylenol. 03/31/19 17:39 Her retroperitoneal US shows nothing acute. Her OB US shows a single live intrauterine approximately 14 weeks 3 days with a heart rate of 146. The patient fells better. I will switch her to keflex for 1 week. Departure - Departure Time of Disposition: 17:40 Disposition: Home, Self-Care 01 Condition: Good Clinical Impression: UTI (urinary tract infection) Qualifiers: Urinary tract infection type: acute cystitis Hematuria presence: without hematuria Qualified Code(s): N30.00 - Acute cystitis without hematuria - Discharge Information *PRESCRIPTION DRUG MONITORING PROGRAM REVIEWED*: Not Applicable *COPY OF PRESCRIPTION DRUG MONITORING REPORT IN PATIENT AVA: Not Applicable Prescriptions: Cephalexin [Keflex] 500 mg PO BID #14 capsule Referrals: Cresencio Mckeon MD [Primary Care Provider] - 1 Week Forms: ED Department Discharge Additional Instructions: Stop taking the macrobid and start taking the keflex 2 times per day for 7 days. Drink plenty of fluids. Take tylenol as needed for pain and fever. Please return if you are worse. - My Orders Last 24 Hours: My Active Orders 03/31/19 15:08 Sodium Chloride 0.9% [Saline Flush] 10 ml FLUSH ASDIRECTED PRN Peripheral IV Insertion Adult [OM.PC] Stat 03/31/19 15:09 Peripheral IV Care [RC] . DIRECTED ED Antiemetic Medication Reflex [OM.PC] Stat 03/31/19 15:10 OB 1st Tri Sgl 1st Gest [US] Stat Retroperitoneal Comp [US] Stat - Assessment/Plan Last 24 Hours: My Active Orders 03/31/19 15:08 Sodium Chloride 0.9% [Saline Flush] 10 ml FLUSH ASDIRECTED PRN Peripheral IV Insertion Adult [OM.PC] Stat 03/31/19 15:09 Peripheral IV Care [RC] . DIRECTED ED Antiemetic Medication Reflex [OM.PC] Stat 03/31/19 15:10 OB 1st Tri Sgl 1st Gest [US] Stat Retroperitoneal Comp [US] Stat
--- NOTE | 2019-04-03 10:42 | US ---
Renal ultrasound: Multiple real-time images of the kidneys were obtained. Comparison: No prior renal imaging is available. Kidneys show no hydronephrosis or mass. Resistivity indices are felt to be within normal limits. Right kidney has a length of 12.8 cm and left kidney has a length of 13.4 cm. Prevoid bladder volume is 99.6 mL and postvoid bladder volume is 6.9 mL. Bilateral ureteral jets are seen within the bladder. Impression: 1. No abnormality is identified on renal ultrasound exam. Diagnostic code #1 I agree with preliminary report from ad, finalized on 03/31/19, 6:21 PM Central Time
--- NOTE | 2019-04-03 10:43 | US ---
Obstetrical ultrasound: Multiple real-time images were obtained transabdominally. Comparison: No previous study for current . Dates: Current ultrasound: KAREN 09/26/19, gestational age 14 weeks 3 days Single intrauterine gestation is seen. Amniotic fluid volume is normal. No subchorionic hemorrhage is seen. Maternal ovaries appear within normal limits. Measurements: BPD: 2.68 cm - 14 weeks 5 days Head circumference: 9.80 cm - 14 weeks 4 days Abdominal circumference: 8.26 cm - 14 weeks 4 days Femur length: 1.35 cm - 14 weeks 0 days Estimated weight: 95 g (0 lbs. 3 oz.), estimated weight at the 68th percentile Heart rate: 146 bpm Cervical length: 3.4 cm Impression: 1. Single intrauterine gestation. Dates as noted above. 2. No complicating process is seen by ultrasound at this time. Diagnostic code #1
== END 2019-03-31 17:50 | disposition home or self-care (01) ==
LOC: JD.ED 14:24
DX: O99.89 Other specified diseases and conditions complicating pregnancy, childbirth and the puerperium (principal); N30.00 Acute cystitis without hematuria; Z91.040 Latex allergy status; Z91.010 Allergy to peanuts; Z88.0 Allergy status to penicillin; Z91.013 Allergy to seafood; Z79.899 Other long term (current) drug therapy; Z3A.13 13 weeks gestation of pregnancy
CPT/HCPCS: 36415; 76770; 76801; 80053; 81001; 83690; 85025; 96361; 96365; 96375; 99283; A9270; J0696; J2405; J7030; J7040; 99284

== ENCOUNTER 2019-09-24 12:00 | Inpatient (IN) | payer MEDICAID ==
[2019-09-24] MEDS ORDERED: Ondansetron 4 MG Tab.DIS PO PRN (12:37)
[2019-09-24] MEDS ORDERED: FLU Vacc QS2019-20(6MOS+)/PF 60 MCG/0.5 ML SYRINGE IM ONE (13:00)
[2019-09-24] MEDS ORDERED: Lidocaine 1% 50 ML MDV INJECT ONE (14:49)
[2019-09-24] MEDS ORDERED: Sodium Chloride 0.9% 10 ML Syringe FLUSH PRN (14:49)
[2019-09-24] MEDS ORDERED: Nalbuphine 10 MG/1 ML Vial IVPUSH PRN (14:49)
[2019-09-24] MEDS ORDERED: Calcium Carbonate 500 MG Tab.Chew PO PRN (14:49)
[2019-09-24] MEDS ORDERED: Lactated Ringers 1,000 ML IV SCH (15:00)
[2019-09-24] MEDS ORDERED: Oxytocin/Lactated Ringers 10 UNIT/1,000 ML BAG IV SCH ×2 (15:00)
--- NOTE | 2019-09-24 15:32 | PCM.LDHP ---
L&D History of Present Illness - General Date of Service: 09/24/19 Admit Problem/Dx: Patient Status Order with Admit Dx/Problem 09/24/19 12:07 Patient Status [ADT] Routine 09/24/19 14:49 Patient Status [ADT] Routine Admission Diagnosis/Problem Admission Diagnosis/Problem Active labor Source of Information: Patient History Limitations: Reports: No Limitations - History of Present Illness Introduction:: Patient is a 18 y/o at 39 1/7 wks who presents for concerns of labor. Was 3 cm last in clinic. On initial exam in L&D was 3 cm and after 2 hours made change to 4 cm. Rates contractions as a 7/10. Otherwise doing well. - Related Data Allergies/Adverse Reactions: Allergies Allergy/AdvReac Type Severity Reaction Status Date / Time latex Allergy Rash Verified 09/24/19 13:09 peanut Allergy Anaphylactic Verified 09/24/19 13:09 Shock Penicillins Allergy Anaphylactic Verified 09/24/19 13:09 Shock shellfish derived Allergy Anaphylactic Verified 09/24/19 13:09 Shock Home Medications: Home Meds Ferrous Sulfate [Iron] 325 mg PO QID 09/15/19 [History] Nitrofurantoin Monohyd/M-Cryst [Macrobid 100 mg Capsule] 100 mg PO BID #20 capsule 09/15/19 [Rx] Ondansetron [Zofran ODT] 4 mg PO Q6H PRN 09/24/19 [History] No122/Iron/Folic Acid [ Multi Tablet] 1 each PO DAILY 09/24/19 [History] Past Medical History Gastrointestinal History: Reports: GERD Genitourinary History: Reports: UTI, Recurrent 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: Reports: Endometriosis, , Spontaneous : 3 Para: 1 LMP (Approximate): Neurological History: Reports: Headaches, Chronic Psychiatric History: Reports: Anxiety, Depression Hematologic History: Reports: Anemia - Past Surgical History HEENT Surgical History: Reports: Oral Surgery Other HEENT Surgeries/Procedures: wisdom teeth removal Female Surgical History: Reports: Cystectomy (Laparoscopic cystectomy - dermoid), D&C Social & Family History - Family History Family Medical History: Noncontributory Cardiac: Reports: [place] Respiratory: Reports: Asthma, COPD Neurological: Reports: CVA Psychiatric: Reports: Bipolar Oncologic: Reports: Bladder, Breast, Lung - Tobacco Use Smoking Status *Q: Never Smoker - Caffeine Use Caffeine Use: Reports: Tea - Alcohol Use Alcohol Use History: No - Recreational Drug Use Recreational Drug Use: No - Living Situation & Occupation Living situation: Reports: Single, with Significant Other (Boyfriend), with Family ( ) Occupation: Unemployed H&P Review of Systems - Review of Systems: Review Of Systems: See Below General: Reports: No Symptoms Pulmonary: Reports: No Symptoms Cardiovascular: Reports: No Symptoms Gastrointestinal: Reports: Abdominal Pain (contractions ) Genitourinary: Reports: No Symptoms Musculoskeletal: Reports: No Symptoms Psychiatric: Reports: No Symptoms Neurological: Reports: No Symptoms L&D Exam - Exam Exam: See Below - Vital Signs Vital Signs: Last Vital Signs Temp 36.3 C 09/24/19 12:07 Pulse 97 09/24/19 12:07 Resp 16 09/24/19 12:07 BP 113/62 09/24/19 12:07 Pulse Ox 98 09/24/19 12:07 Weight: 102.512 kg - OB Specific Contraction Intensity: Moderate Movement: Active Heart Tones: Present Heart Tones per Min: 125 Heart Rate (FHR) Variability: Moderate (6-25 bmp) Presentation: Vertex - Rees Score Rees Score Cervix Position: Midposition Rees Score Consistency: Soft Rees Score Effacement: >80% Rees Score Dilation: 3-4 cm Rees Score Infant's Station: -2 Rees Score Total: 9 - Exam General: Alert, Oriented, Cooperative Lungs: Clear to Auscultation, Normal Respiratory Effort Cardiovascular: Regular Rate, Regular Rhythm GI/Abdominal Exam: Soft, Non-Tender Genitourinary: Normal external exam Extremities: Normal Inspection Skin: Warm, Dry, Intact - Problem List (1) 39 weeks gestation of SNOMED Code(s): 48870531 ICD Code: Z3A.39 - 39 WEEKS GESTATION OF Status: Acute Current Visit: Yes (2) Normal labor SNOMED Code(s): 61861221 ICD Code: O80 - ENCOUNTER FOR FULL-TERM UNCOMPLICATED DELIVERY; Z37.9 - OUTCOME OF DELIVERY, UNSPECIFIED Status: Acute Current Visit: Yes (3) Rh negative state in antepartum period SNOMED Code(s): 688598469 ICD Code: O26.899 - OTH RELATED CONDITIONS, UNSPECIFIED TRIMESTER; Z67.91 - UNSPECIFIED BLOOD TYPE, RH NEGATIVE Status: Acute Current Visit: Yes Problem List Initiated/Reviewed/Updated: Yes Orders Last 24hrs: Active Orders 24 hr Category Date Time Status Patient Status [ADT] Routine ADT 09/24/19 14:49 Active Activity as Tolerated [RC] PFP Care 09/24/19 14:49 Active Communication Order [RC] ASDIRECTED Care 09/24/19 14:49 Active Heart Tones [RC] ASDIRECTED Care 09/24/19 14:49 Active Non Stress Test [RC] PER UNIT ROUTINE Care 09/24/19 12:07 Active Influenza Vaccine Charge [RC] .DISCHARGE Care 09/24/19 12:42 Active Notify Provider [RC] PFP Care 09/24/19 14:49 Active Notify Provider [RC] PRN Care 09/24/19 14:49 Active Peripheral IV Care [RC] . DIRECTED Care 09/24/19 14:49 Active Pump Management, Intrathecal [RC] ASDIRECTED Care 09/24/19 14:49 Active Urinary Catheter Assessment [RC] ASDIRECTED Care 09/24/19 14:49 Active Vital Signs [RC] PER UNIT ROUTINE Care 09/24/19 12:07 Active Regular Diet [DIET] Diet 09/24/19 Lunch Active CBC WITH AUTO DIFF [HEME] Stat Lab 09/24/19 15:12 Received RAPID PLASMA REAGIN,RPR [CHEM] Stat Lab 09/24/19 15:12 Received TYPE AND SCREEN [BBK] Stat Lab 09/24/19 15:12 Received Calcium Carbonate [Tums] Med 09/24/19 14:49 Active 1,000 mg PO Q2H PRN Lactated Ringers [Ringers, Lactated] 1,000 ml Med 09/24/19 15:00 Active IV ASDIRECTED Nalbuphine [Nubain] Med 09/24/19 14:49 Active 10 mg IVPUSH Q2H PRN Ondansetron [Zofran ODT] Med 09/24/19 12:37 Active 4 mg PO Q8H PRN Oxytocin/Lactated Ringers [Pitocin in LR 10 Units/1,000 Med 09/24/19 15:00 Active ML] 10 unit in 1,000 ml IV .CONTINUOUS Oxytocin/Lactated Ringers [Pitocin in LR 10 Units/1,000 Med 09/24/19 15:00 Active ML] 10 unit in 1,000 ml IV TITRATE Sodium Chloride 0.9% [Saline Flush] Med 09/24/19 14:49 Active 10 ml FLUSH ASDIRECTED PRN Electronic Heart Tones Ext w TOCO [WOMSER] Oth 09/24/19 14:49 Ordered Routine Electronic Heart Tones Internal [WOMSER] Per Unit Oth 09/24/19 14:49 Ordered Routine Peripheral IV Insertion Adult [OM.PC] Routine Oth 09/24/19 14:49 Ordered Resuscitation Status Routine Resus Stat 09/24/19 12:07 Ordered Medication Orders Calcium Carbonate/Glycine (Tums) 1,000 mg PO Q2H PRN PRN Reason: Indigestion Lactated Ringer's (Ringers, Lactated) 1,000 mls @ 100 mls/hr IV ASDIRECTED [place] Oxytocin/Lactated Ringer's (Pitocin In Lr 10 Units/1,000 Ml) 10 unit in 1,000 mls @ 12 mls/hr IV TITRATE [place]; Protocol Oxytocin/Lactated Ringer's (Pitocin In Lr 10 Units/1,000 Ml) 10 unit in 1,000 mls @ 500 mls/hr IV .CONTINUOUS [place] Nalbuphine HCl (Nubain) 10 mg IVPUSH Q2H PRN PRN Reason: Pain Ondansetron HCl (Zofran Odt) 4 mg PO Q8H PRN PRN Reason: Nausea/Vomiting Last Admin: 09/24/19 12:59 Dose: 4 mg Sodium Chloride (Saline Flush) 10 ml FLUSH ASDIRECTED PRN PRN Reason: Keep Vein Open Assessment/Plan Comment:: 18 y/o at 39 1/7 wks presents in labor * Labs done * GBS Negative, no need for antibiotics * AROM * Pain management per patient preference * Anticipate
--- NOTE | 2019-09-24 21:17 | PCM.DEL ---
L & D Note - General Info Date of Service: 09/24/19 - Delivery Note Labor: Augmented by ARM Delivery Outcome: Livebirth Delivery Method: Spontaneous Vaginal Delivery-Single Infant Delivery Mode: Spontaneous Presentation: Left Occiput Anterior (SANJEEV) Nuchal Cord: None Anesthesia Type: None Amniotic Fluid Description: Clear Episiotomy Type: None Laceration: 1st Degree (hemostatic and so not repaired ) Placenta: Intact, Spontaneous Cord: 3 Vessels Estimated Blood Loss: 300 Resuscitation Needed: Yes [place]: Bulb Syringe, Stimulated, Warmed, [place] Used, Warmer Used Delivery Comments (Free Text/Narrative):: Patient pushing in hands/knees position. With maternal pushing effort head delivered from an SANJEEV presentation. No nuchal cord present. With upward motion shoulders and body delivered. Cord clamped and cut. Baby taken to warmer for assessment. Patient rotated to lithotomy position. Placenta allowed time to separate and expelled intact. Inspection of the perineum showed a small 1st degree. Hemostatic and so not repaired. - General Info Date of Service: 09/24/19 - Patient Data Vitals - Most Recent: Last Vital Signs Temp 36.3 C 09/24/19 12:07 Pulse 97 09/24/19 12:07 Resp 16 09/24/19 12:07 BP 113/62 09/24/19 12:07 Pulse Ox 98 09/24/19 12:07 Weight - Most Recent: 102.512 kg - Problem List & Annotations (1) 39 weeks gestation of SNOMED Code(s): 91343710 Code(s): Z3A.39 - 39 WEEKS GESTATION OF Status: Acute Current Visit: Yes (2) Normal labor SNOMED Code(s): 67715072 Code(s): O80 - ENCOUNTER FOR FULL-TERM UNCOMPLICATED DELIVERY; Z37.9 - OUTCOME OF DELIVERY, UNSPECIFIED Status: Acute Current Visit: Yes (3) Rh negative state in antepartum period SNOMED Code(s): 417950028 Code(s): O26.899 - OTH RELATED CONDITIONS, UNSPECIFIED TRIMESTER; Z67.91 - UNSPECIFIED BLOOD TYPE, RH NEGATIVE Status: Acute Current Visit: Yes (4) Vaginal delivery SNOMED Code(s): 832281553 Code(s): O80 - ENCOUNTER FOR FULL-TERM UNCOMPLICATED DELIVERY Status: Acute Current Visit: Yes - Problem List Review Problem List Initiated/Reviewed/Updated: Yes - My Orders Last 24 Hours: My Active Orders 09/24/19 12:07 Resuscitation Status Routine 09/24/19 12:37 Ondansetron [Zofran ODT] 4 mg PO Q8H PRN 09/24/19 12:42 Influenza Vaccine Charge [RC] .DISCHARGE 09/24/19 14:49 Patient Status [ADT] Routine Activity as Tolerated [RC] PFP Communication Order [RC] ASDIRECTED Notify Provider [RC] PFP Notify Provider [RC] PRN Peripheral IV Care [RC] Q2HR Pump Management, Intrathecal [RC] ASDIRECTED Urinary Catheter Assessment [RC] ASDIRECTED Calcium Carbonate [Tums] 1,000 mg PO Q2H PRN Nalbuphine [Nubain] 10 mg IVPUSH Q2H PRN Sodium Chloride 0.9% [Saline Flush] 10 ml FLUSH ASDIRECTED PRN Electronic Heart Tones Ext w TOCO [WOMSER] Routine Electronic Heart Tones Internal [WOMSER] Per Unit Routine Peripheral IV Insertion Adult [OM.PC] Routine 09/24/19 15:00 Lactated Ringers [Ringers, Lactated] 1,000 ml IV ASDIRECTED Oxytocin/Lactated Ringers [Pitocin in LR 10 Units/1,000 ML] 10 unit in 1,000 ml IV .CONTINUOUS Oxytocin/Lactated Ringers [Pitocin in LR 10 Units/1,000 ML] 10 unit in 1,000 ml IV TITRATE 09/24/19 15:12 RAPID PLASMA REAGIN,RPR [CHEM] Stat 09/24/19 Lunch Regular Diet [DIET] - Assessment Assessment:: PPD#0 from - Plan Plan:: * Routine cares * Breast feeding * Assess baby blood type to see if Rhogam required * Discharge home in 2 days
[2019-09-24] MEDS ORDERED: Witch Hazel Medicated Pads 40/Jar TOP PRN (22:17)
[2019-09-24] MEDS ORDERED: Benzocaine/Menthol 20%-0.5% Spray 56 GM Canister TOP PRN (22:17)
[2019-09-25] MEDS: Ibuprofen 600 MG Tab PO PRN ×3 (00:30→21:02)
[2019-09-25] MEDS: Acetaminophen 325 MG Tab PO PRN ×2 (03:09→10:10)
--- NOTE | 2019-09-25 06:32 | PCM.PNPP ---
- General Info Date of Service: 09/25/19 Functional Status: Reports: Pain Controlled, Tolerating Diet, Ambulating, Urinating - Review of Systems General: Reports: No Symptoms Pulmonary: Reports: No Symptoms Cardiovascular: Reports: No Symptoms Gastrointestinal: Reports: Abdominal Pain Genitourinary: Reports: No Symptoms Musculoskeletal: Reports: No Symptoms - Patient Data Vital Signs - Most Recent: Last Vital Signs Temp 36.4 C 09/25/19 03:15 Pulse 81 09/25/19 03:15 Resp 16 09/25/19 03:15 BP 109/48 L 09/25/19 03:15 Pulse Ox 97 09/25/19 03:15 Weight - Most Recent: 102.512 kg Lab Results - Last 24 Hours: Laboratory Results - last 24 hr 09/24/19 09/24/19 Range/Units 15:12 15:12 WBC 10.99 H (3.98-10.04) K/mm3 RBC 4.23 (3.98-5.22) M/mm3 Hgb 10.8 L (11.2-15.7) gm/dl Hct 35.1 (34.1-44.9) % MCV 83.0 (79.4-94.8) fl MCH 25.5 L (25.6-32.2) pg MCHC 30.8 L (32.2-35.5) g/dl RDW Std Deviation 71.3 H (36.4-46.3) fL Plt Count 156 L (182-369) K/mm3 MPV 12.0 (9.4-12.3) fl Neut % (Auto) 71.3 H (34.0-71.1) % Lymph % (Auto) 18.8 L (19.3-51.7) % [place] % (Auto) 8.2 (4.7-12.5) % Eos % (Auto) 0.9 (0.7-5.8) Baso % (Auto) 0.3 (0.1-1.2) % Neut # (Auto) 7.84 H (1.56-6.13) K/mm3 Lymph # (Auto) 2.07 (1.18-3.74) K/mm3 [place] # (Auto) 0.90 H (0.24-0.36) K/mm3 Eos # (Auto) 0.10 (0.04-0.36) K/mm3 Baso # (Auto) 0.03 (0.01-0.08) K/mm3 Manual Slide Review Abnormal smear Blood Type B NEGATIVE Gel Antibody Screen Negative Med Orders - Current: Current Medications Acetaminophen (Tylenol) 650 mg PO Q4H PRN PRN Reason: mild pain or fever Last Admin: 09/25/19 03:09 Dose: 650 mg Benzocaine/Menthol (Dermoplast Pain Relief [place]) 0 gm TOP ASDIRECTED PRN PRN Reason: Perineal Comfort Measure Last Admin: 09/25/19 03:11 Dose: 1 each Ibuprofen (Motrin) 600 mg PO Q6H PRN PRN Reason: Mild pain or fever Last Admin: 09/25/19 06:03 Dose: 600 mg Witch Tanja (Tucks) 1 pad TOP ASDIRECTED PRN PRN Reason: Perineal Comfort Measure Last Admin: 09/25/19 03:11 Dose: 1 each Discontinued Medications Calcium Carbonate/Glycine (Tums) 1,000 mg PO Q2H PRN PRN Reason: Indigestion Lactated Ringer's (Ringers, Lactated) 1,000 mls @ 100 mls/hr IV ASDIRECTED [place] Oxytocin/Lactated Ringer's (Pitocin In Lr 10 Units/1,000 Ml) 10 unit in 1,000 mls @ 12 mls/hr IV TITRATE [place]; Protocol Oxytocin/Lactated Ringer's (Pitocin In Lr 10 Units/1,000 Ml) 10 unit in 1,000 mls @ 500 mls/hr IV .CONTINUOUS [facility] Influenza Virus Vaccine (Pharmacy To Dose - Influenza Vaccine) 1 each IM ONETIME ONE Stop: 09/24/19 12:43 Influenza Virus Vaccine (Fluzone Quad 1611-1817 Syringe) 60 mcg IM .ONCE ONE Stop: 09/24/19 13:01 Lidocaine HCl (Xylocaine 1%) 20 ml INJECT ONETIME ONE Stop: 09/24/19 14:50 Nalbuphine HCl (Nubain) 10 mg IVPUSH Q2H PRN PRN Reason: Pain Ondansetron HCl (Zofran Odt) 4 mg PO Q8H PRN PRN Reason: Nausea/Vomiting Last Admin: 09/24/19 12:59 Dose: 4 mg Sodium Chloride (Saline Flush) 10 ml FLUSH ASDIRECTED PRN PRN Reason: Keep Vein Open - Interaction Infant Disposition, : [place] in Room with Family Infant Interaction: Holding Infant Feeding: Attempted ; Nursed Fair/Poor Support Person: Significant Other - Recovery Exam Fundal Tone: Firm Fundal Level: 1 Fingerbreadths Above Umbilicus Fundal Placement: Midline Lochia Amount: Small Lochia Color: Rubra/Red Bladder Status: Voiding Urinary Elimination: Voided - Exam General: Alert, Oriented, Cooperative GI/Abdominal Exam: Soft, Non-Tender Extremities: Normal Inspection Skin: Warm, Dry, Intact - Problem List & Annotations (1) 39 weeks gestation of SNOMED Code(s): 14606196 Code(s): Z3A.39 - 39 WEEKS GESTATION OF Status: Acute Current Visit: Yes (2) Normal labor SNOMED Code(s): 08277770 Code(s): O80 - ENCOUNTER FOR FULL-TERM UNCOMPLICATED DELIVERY; Z37.9 - OUTCOME OF DELIVERY, UNSPECIFIED Status: Acute Current Visit: Yes (3) Rh negative state in antepartum period SNOMED Code(s): 335313199 Code(s): O26.899 - OTH RELATED CONDITIONS, UNSPECIFIED TRIMESTER; Z67.91 - UNSPECIFIED BLOOD TYPE, RH NEGATIVE Status: Acute Current Visit: Yes (4) Vaginal delivery SNOMED Code(s): 425004941 Code(s): O80 - ENCOUNTER FOR FULL-TERM UNCOMPLICATED DELIVERY Status: Acute Current Visit: Yes - Problem List Review Problem List Initiated/Reviewed/Updated: Yes - My Orders Last 24 Hours: My Active Orders 09/24/19 12:07 Resuscitation Status Routine 09/24/19 12:42 Influenza Vaccine Charge [RC] .DISCHARGE 09/24/19 14:49 Urinary Catheter Assessment [RC] ASDIRECTED 09/24/19 15:12 RAPID PLASMA REAGIN,RPR [CHEM] Stat 09/24/19 22:17 Activity as Tolerated [RC] PER UNIT ROUTINE Vital Signs [RC] ASDIRECTED Acetaminophen [Tylenol] 650 mg PO Q4H PRN Benzocaine/Menthol [Dermoplast Pain Relief [place]] See Dose Instructions TOP ASDIRECTED PRN Ibuprofen [Motrin] 600 mg PO Q6H PRN Witch Tanja [Tucks] 1 pad TOP ASDIRECTED PRN Assess Lochia [WOMSER] Per Unit Routine Assess Uterine Involution [WOMSER] Per Unit Routine Breast Pump [WOMSER] Per Unit Routine Heat Therapy [OM.PC] PRN Ice Therapy [OM.PC] Per Unit Routine Perineal Care [OM.PC] Per Unit Routine Peripheral IV Discontinue [OM.PC] Routine Sitz Bath [OM.PC] Per Unit Routine 09/24/19 Breakfast Regular Diet [DIET] 09/25/19 22:17 Heat Therapy [OM.PC] PRN - Assessment Assessment:: PPD#1 from - Plan Plan:: * Routine cares * Breast feeding * Baby Rh negative, no need for Rhogam * Discharge home tomorrow
[2019-09-25] MEDS ORDERED: Ondansetron 4 MG Tab.DIS PO PRN (06:44)
[2019-09-26] MEDS: Acetaminophen 325 MG Tab PO PRN (01:08)
--- NOTE | 2019-09-26 06:51 | PCM.PNPP ---
- General Info Date of Service: 09/26/19 Functional Status: Reports: Pain Controlled, Tolerating Diet, Ambulating, Urinating - Review of Systems General: Reports: No Symptoms Pulmonary: Reports: No Symptoms Cardiovascular: Reports: No Symptoms Gastrointestinal: Reports: No Symptoms Genitourinary: Reports: No Symptoms Musculoskeletal: Reports: No Symptoms Neurological: Reports: No Symptoms - Patient Data Vital Signs - Most Recent: Last Vital Signs Temp 36.7 C 09/26/19 03:13 Pulse 65 09/26/19 03:13 Resp 16 09/26/19 03:13 BP 103/54 L 09/26/19 03:13 Pulse Ox 98 09/26/19 03:13 Weight - Most Recent: 102.512 kg I&O - Last 24 Hours: Intake & Output 09/25/19 09/25/19 09/26/19 14:59 22:59 06:59 Intake Total 40 Balance 40 Lab Results - Last 24 Hours: Laboratory Results - last 24 hr 09/24/19 Range/Units 15:12 RPR Non-reactive (NONREACTIVE) Med Orders - Current: Current Medications Acetaminophen (Tylenol) 650 mg PO Q4H PRN PRN Reason: mild pain or fever Last Admin: 09/26/19 01:08 Dose: 650 mg Benzocaine/Menthol (Dermoplast Pain Relief [place]) 0 gm TOP ASDIRECTED PRN PRN Reason: Perineal Comfort Measure Last Admin: 09/25/19 03:11 Dose: 1 each Ibuprofen (Motrin) 600 mg PO Q6H PRN PRN Reason: Mild pain or fever Last Admin: 09/25/19 21:02 Dose: 600 mg Ondansetron HCl (Zofran Odt) 4 mg PO Q8H PRN PRN Reason: Nausea/Vomiting Last Admin: 09/25/19 07:19 Dose: 4 mg Witch Tanja (Tucks) 1 pad TOP ASDIRECTED PRN PRN Reason: Perineal Comfort Measure Last Admin: 09/25/19 03:11 Dose: 1 each Discontinued Medications Calcium Carbonate/Glycine (Tums) 1,000 mg PO Q2H PRN PRN Reason: Indigestion Lactated Ringer's (Ringers, Lactated) 1,000 mls @ 100 mls/hr IV ASDIRECTED [place] Oxytocin/Lactated Ringer's (Pitocin In Lr 10 Units/1,000 Ml) 10 unit in 1,000 mls @ 12 mls/hr IV TITRATE [place]; Protocol Oxytocin/Lactated Ringer's (Pitocin In Lr 10 Units/1,000 Ml) 10 unit in 1,000 mls @ 500 mls/hr IV .CONTINUOUS [place] Influenza Virus Vaccine (Pharmacy To Dose - Influenza Vaccine) 1 each IM ONETIME ONE Stop: 09/24/19 12:43 Influenza Virus Vaccine (Fluzone Quad 5475-9745 Syringe) 60 mcg IM .ONCE ONE Stop: 09/24/19 13:01 Lidocaine HCl (Xylocaine 1%) 20 ml INJECT ONETIME ONE Stop: 09/24/19 14:50 Last Admin: 09/25/19 11:38 Dose: Not Given Nalbuphine HCl (Nubain) 10 mg IVPUSH Q2H PRN PRN Reason: Pain Ondansetron HCl (Zofran Odt) 4 mg PO Q8H PRN PRN Reason: Nausea/Vomiting Last Admin: 09/24/19 12:59 Dose: 4 mg Sodium Chloride (Saline Flush) 10 ml FLUSH ASDIRECTED PRN PRN Reason: Keep Vein Open - Infant Interaction Infant Disposition, : [place] in Room with Family Infant Interaction: Holding Infant Feeding: Attempted ; Nursed Fair/Poor Support Person: Significant Other - Recovery Exam Fundal Tone: Firm Fundal Level: 2 Fingerbreadths Below Umbilicus Fundal Placement: Midline Lochia Amount: Small Lochia Color: Rubra/Red Perineum Description: Other (see below) Other Perinuem Description: 1st degree with repair Episiotomy/Laceration: Approximated Bladder Status: Voiding Urinary Elimination: Voided - Exam General: Alert, Oriented, Cooperative GI/Abdominal Exam: Soft, Non-Tender Extremities: Normal Inspection Skin: Warm, Dry, Intact - Problem List & Annotations (1) 39 weeks gestation of SNOMED Code(s): 53607442 Code(s): Z3A.39 - 39 WEEKS GESTATION OF Status: Acute (2) Normal labor SNOMED Code(s): 30550176 Code(s): O80 - ENCOUNTER FOR FULL-TERM UNCOMPLICATED DELIVERY; Z37.9 - OUTCOME OF DELIVERY, UNSPECIFIED Status: Acute (3) Rh negative state in antepartum period SNOMED Code(s): 466232780 Code(s): O26.899 - OTH RELATED CONDITIONS, UNSPECIFIED TRIMESTER; Z67.91 - UNSPECIFIED BLOOD TYPE, RH NEGATIVE Status: Acute (4) Vaginal delivery SNOMED Code(s): 166819951 Code(s): O80 - ENCOUNTER FOR FULL-TERM UNCOMPLICATED DELIVERY Status: Acute - Problem List Review Problem List Initiated/Reviewed/Updated: Yes - My Orders Last 24 Hours: My Active Orders 09/25/19 06:44 Ondansetron [Zofran ODT] 4 mg PO Q8H PRN 09/25/19 22:17 Heat Therapy [OM.PC] PRN 09/26/19 06:51 Ready for Discharge [RC] PER UNIT ROUTINE - Assessment Assessment:: PPD#2 from - Plan Plan:: * Routine cares * Breast feeding * Baby Rh negative, no need for Rhogam * Discharge home today
--- NOTE | 2019-09-26 06:51 | PCM.DCSUM1 ---
Discharge Summary - Discharge Data Discharge Date: 09/26/19 Discharge Disposition: Home, Self-Care 01 Condition: Good - Referral to Home Health Primary Care Physician: Cresencio Bravo MD - Discharge Diagnosis/Problem(s) (1) 39 weeks gestation of SNOMED Code(s): 32592759 ICD Code: Z3A.39 - 39 WEEKS GESTATION OF Status: Acute (2) Normal labor SNOMED Code(s): 24383895 ICD Code: O80 - ENCOUNTER FOR FULL-TERM UNCOMPLICATED DELIVERY; Z37.9 - OUTCOME OF DELIVERY, UNSPECIFIED Status: Acute (3) Rh negative state in antepartum period SNOMED Code(s): 186087228 ICD Code: O26.899 - OTH RELATED CONDITIONS, UNSPECIFIED TRIMESTER; Z67.91 - UNSPECIFIED BLOOD TYPE, RH NEGATIVE Status: Acute (4) Vaginal delivery SNOMED Code(s): 551244921 ICD Code: O80 - ENCOUNTER FOR FULL-TERM UNCOMPLICATED DELIVERY Status: Acute - Patient Summary/Data Complications: None Consults: None Recommended Follow-up Testing/Procedures: Follow up in 2 weeks for check Hospital Course: 18 y/o at 39 1/7 wks presented in labor. Augmented with AROM. Progressed to complete dilation and underwent an uncomplicated . See delivery note. did well. Was discharged home on PPD#2 - Patient Instructions Diet: Regular Diet as Tolerated Activity: As Tolerated Activity, Other: Pelvic rest for 6 weeks Driving: May Drive Today Showering/Bathing: May Shower Showering/Bathing, Other: May Bathe Notify Provider of: Fever, Increased Pain, Swelling and Redness, Drainage, Nausea and/or Vomiting - Discharge Plan *PRESCRIPTION DRUG MONITORING PROGRAM REVIEWED*: Not Applicable *COPY OF PRESCRIPTION DRUG MONITORING REPORT IN PATIENT AVA: Not Applicable Home Medications: Home Meds No122/Iron/Folic Acid [ Multi Tablet] 1 each PO DAILY 09/24/19 [History] Ibuprofen [Motrin] 600 mg PO Q6H PRN tablet 09/26/19 [Rx] Patient Handouts: Care After Vaginal Delivery Referrals: Cresencio Bravo MD [Primary Care Provider] - (2 weeks for post op check ) - Discharge Summary/Plan Comment DC Time >30 min.: No - Patient Data Vitals - Most Recent: Last Vital Signs Temp 36.7 C 09/26/19 03:13 Pulse 65 09/26/19 03:13 Resp 16 09/26/19 03:13 BP 103/54 L 09/26/19 03:13 Pulse Ox 98 09/26/19 03:13 Weight - Most Recent: 102.512 kg I&O - Last 24 hours: Intake & Output 09/25/19 09/25/19 09/26/19 14:59 22:59 06:59 Intake Total 40 Balance 40 Lab Results - Last 24 hrs: Laboratory Results - last 24 hr 09/24/19 Range/Units 15:12 RPR Non-reactive (NONREACTIVE) Med Orders - Current: Current Medications Acetaminophen (Tylenol) 650 mg PO Q4H PRN PRN Reason: mild pain or fever Last Admin: 09/26/19 01:08 Dose: 650 mg Benzocaine/Menthol (Dermoplast Pain Relief [place]) 0 gm TOP ASDIRECTED PRN PRN Reason: Perineal Comfort Measure Last Admin: 09/25/19 03:11 Dose: 1 each Ibuprofen (Motrin) 600 mg PO Q6H PRN PRN Reason: Mild pain or fever Last Admin: 09/25/19 21:02 Dose: 600 mg Ondansetron HCl (Zofran Odt) 4 mg PO Q8H PRN PRN Reason: Nausea/Vomiting Last Admin: 09/25/19 07:19 Dose: 4 mg Witch Tanja (Tucks) 1 pad TOP ASDIRECTED PRN PRN Reason: Perineal Comfort Measure Last Admin: 09/25/19 03:11 Dose: 1 each Discontinued Medications Calcium Carbonate/Glycine (Tums) 1,000 mg PO Q2H PRN PRN Reason: Indigestion Lactated Ringer's (Ringers, Lactated) 1,000 mls @ 100 mls/hr IV ASDIRECTED [place] Oxytocin/Lactated Ringer's (Pitocin In Lr 10 Units/1,000 Ml) 10 unit in 1,000 mls @ 12 mls/hr IV TITRATE [place]; Protocol Oxytocin/Lactated Ringer's (Pitocin In Lr 10 Units/1,000 Ml) 10 unit in 1,000 mls @ 500 mls/hr IV .CONTINUOUS [place] Influenza Virus Vaccine (Pharmacy To Dose - Influenza Vaccine) 1 each IM ONETIME ONE Stop: 09/24/19 12:43 Influenza Virus Vaccine (Fluzone Quad [id number] Syringe) 60 mcg IM .ONCE ONE Stop: 09/24/19 13:01 Lidocaine HCl (Xylocaine 1%) 20 ml INJECT ONETIME ONE Stop: 09/24/19 14:50 Last Admin: 09/25/19 11:38 Dose: Not Given Nalbuphine HCl (Nubain) 10 mg IVPUSH Q2H PRN PRN Reason: Pain Ondansetron HCl (Zofran Odt) 4 mg PO Q8H PRN PRN Reason: Nausea/Vomiting Last Admin: 09/24/19 12:59 Dose: 4 mg Sodium Chloride (Saline Flush) 10 ml FLUSH ASDIRECTED PRN PRN Reason: Keep Vein Open
== END 2019-09-26 12:00 | disposition home or self-care (01) | DRG 807 ==
LOC: JD.OBCHECK 12:00 → JD.OB 12:03 → JD.OBCHECK 14:49 → JD.OB 15:41 → OBSVTOIN 20:55 → JD.OB 20:56
PROVIDERS: ADMIT Obstetrics & Gynecology; ATTEND Obstetrics & Gynecology
PROC: 10E0XZZ Delivery of Products of Conception, External Approach (ICD-10-PCS; principal; 2019-09-24)
PROC: 10907ZC Drainage of Amniotic Fluid, Therapeutic from Products of Conception, Via Natural or Artificial Opening (ICD-10-PCS; 2019-09-24)
PROC: 0HQ9XZZ Repair Perineum Skin, External Approach (ICD-10-PCS; 2019-09-24)
DX: O99.02 Anemia complicating childbirth (principal); Z37.0 Single live birth; D64.9 Anemia, unspecified; Z3A.39 39 weeks gestation of pregnancy; Z91.040 Latex allergy status; Z91.010 Allergy to peanuts; Z79.899 Other long term (current) drug therapy; Z67.91 Unspecified blood type, Rh negative; O70.0 First degree perineal laceration during delivery
CPT/HCPCS: 36415; 59025; 59409; 85025; 86592; 86850; 86900; 86901; A9270-GY

== ENCOUNTER → 2019-11-24 | Day surgery (SDC) | payer MEDICAID ==
[~2019-11-24] MED LIST changes: +Famotidine 20 MG/2 ML SDV IVPUSH ONE; +Famotidine 20 MG/2 ML SDV ONE; +Ibuprofen 600 MG Tab PO PRN; +Ketamine 500 mg/10 ML MDV ONE; +Ketorolac 30 MG/ML SDV ONE; +Midazolam 1 MG/ML 2 ML SDV ONE; +Ondansetron 4 MG/2 ML SDV ONE; +Propofol 200 MG/20 ML SDV ONE; +Scopolamine 1.5 MG Transdermal Patch TRDERM PRN; +Sodium Chloride 0.9% 100 ML ONE; +ceFAZolin 1 GM Vial ONE; +fentaNYL 100 MCG/2 ML SDV IVPUSH PRN; +fentaNYL 100 MCG/2 ML SDV ONE
--- NOTE | 2019-11-24 07:25 | PCM.PREANE ---
Preanesthetic Assessment - Anesthesia/Transfusion/Family Hx Anesthesia History: Prior Anesthesia Reaction Type of Anesthesia Reaction: Excessive Nausea/Vomiting Other Type of Anesthesia Reaction Comment: Difficulty waking Family History of Anesthesia Reaction: No Transfusion History: No Prior Transfusion(s) Intubation History: Unknown - Review of Systems General: No Symptoms Pulmonary: No Symptoms Cardiovascular: No Symptoms Gastrointestinal: No Symptoms Neurological: No Symptoms Other: Reports: None - Physical Assessment NPO Status Date: 11/23/19 NPO Status Time: 23:00 Vital Signs: 97F 81 16 133/87 98% Weight: 91 kg ASA Class: 2 Mental Status: Alert & Oriented x3 Airway Class: Mallampati = 2 Dentition: Reports: Normal Dentition Thyro-Mental Finger Breadths: 3 Mouth Opening Finger Breadths: 3 ROM/Head Extension: Full Lungs: Clear to Auscultation, Normal Respiratory Effort Cardiovascular: Regular Rate, Regular Rhythm - Lab Values: Laboratory Last Values WBC 10.35 K/mm3 (3.98-10.04) H 11/24/19 07:00 RBC 5.05 M/mm3 (3.98-5.22) 11/24/19 07:00 Hgb 13.4 gm/dl (11.2-15.7) 11/24/19 07:00 Hct 43.3 % (34.1-44.9) 11/24/19 07:00 MCV 85.7 fl (79.4-94.8) 11/24/19 07:00 MCH 26.5 pg (25.6-32.2) 11/24/19 07:00 MCHC 30.9 g/dl (32.2-35.5) L 11/24/19 07:00 RDW Std Deviation 53.6 fL (36.4-46.3) H 11/24/19 07:00 Plt Count 209 K/mm3 (182-369) 11/24/19 07:00 MPV 11.1 fl (9.4-12.3) 11/24/19 07:00 Neut % (Auto) 45.5 % (34.0-71.1) 11/24/19 07:00 Lymph % (Auto) 40.6 % (19.3-51.7) 11/24/19 07:00 [place] % (Auto) 9.3 % (4.7-12.5) 11/24/19 07:00 Eos % (Auto) 4.0 (0.7-5.8) 11/24/19 07:00 Baso % (Auto) 0.5 % (0.1-1.2) 11/24/19 07:00 Neut # (Auto) 4.72 K/mm3 (1.56-6.13) 11/24/19 07:00 Lymph # (Auto) 4.20 K/mm3 (1.18-3.74) H 11/24/19 07:00 [place] # (Auto) 0.96 K/mm3 (0.24-0.36) H 11/24/19 07:00 Eos # (Auto) 0.41 K/mm3 (0.04-0.36) H 11/24/19 07:00 Baso # (Auto) 0.05 K/mm3 (0.01-0.08) 11/24/19 07:00 Urine HCG, Qual Negative (NEGATIVE) 11/24/19 06:46 - Allergies Allergies/Adverse Reactions: Allergies Allergy/AdvReac Type Severity Reaction Status Date / Time latex Allergy Rash Verified 11/24/19 07:16 peanut Allergy Anaphylactic Verified 11/24/19 07:16 Shock Penicillins Allergy Anaphylactic Verified 11/24/19 07:16 Shock shellfish derived Allergy Anaphylactic Verified 11/24/19 07:16 Shock - Anesthesia Plan Pre-Op Medication Ordered: Other (Scopalamine Patch) - Acknowledgements Anesthesia Type Planned: MAC Pt an Appropriate Candidate for the Planned Anesthesia: Yes Alternatives and Risks of Anesthesia Discussed w Pt/Guardian: Yes Pt/Guardian Understands and Agrees with Anesthesia Plan: Yes PreAnesthesia Questionnaire - Past Health History Medical/Surgical History: Denies Medical/Surgical History Cardiovascular History: Reports: None Respiratory History: Reports: None Gastrointestinal History: Reports: GERD Other Gastrointestinal History: Nausea Genitourinary History: Reports: UTI, Recurrent, Other (See Below) Other Genitourinary History: breast pain, burning with urination, dysuria CLOTH CLASSER History: Reports: Endometriosis, , Spontaneous Other OB/BYN History: AMENORRHEA, DERMOID CYST OF OVARY, GBS+ Musculoskeletal History: Reports: Other (See Below) Other Musculoskeletal History: body aches, right ankle sprain Neurological History: Reports: Headaches, Chronic Other Neuro History: DIZZINESS, SYNCOPE Psychiatric History: Reports: Anxiety, Depression Other Psychiatric History: off medication since being . went off meds 9 weeks ago Endocrine/Metabolic History: Reports: Obesity/BMI 30+ Hematologic History: Reports: Anemia, Iron Deficiency Immunologic History: Reports: None Oncologic (Cancer) History: Reports: None Dermatologic History: Reports: None - Past Surgical History Head Surgeries/Procedures: Reports: None HEENT Surgical History: Reports: Oral Surgery Other HEENT Surgeries/Procedures: wisdom teeth removal Cardiovascular Surgical History: Reports: None Respiratory Surgical History: Reports: None Female Surgical History: Reports: Cystectomy, D&C Other Female Surgeries/Procedures: 2-para 1; misscarriage Male Surgical History: Reports: None Endocrine Surgical History: Reports: None Neurological Surgical History: Reports: None Musculoskeletal Surgical History: Reports: None Oncologic Surgical History: Reports: None Dermatological Surgical History: Reports: None - SUBSTANCE USE Smoking Status *Q: Current Some Day Smoker Recreational Drug Use History: No - HOME MEDS Home Medications: Home Meds No122/Iron/Folic Acid [ Multi Tablet] 1 each PO DAILY 09/24/19 [History] - CURRENT (IN HOUSE) MEDS Current Meds: Current Medications Lactated Ringer's (Ringers, Lactated) 1,000 mls @ 125 mls/hr IV ASDIRECTED [place] Stop: 11/24/19 23:00 Last Admin: 11/24/19 07:14 Dose: 125 mls/hr Lidocaine/Sodium Bicarbonate (Buffered Lidocaine 1% In Ns 8.4%) 0.25 ml IDERM ONETIME PRN PRN Reason: Prior to IV Start Stop: 11/24/19 18:00 Last Admin: 11/24/19 07:14 Dose: 0.25 ml Scopolamine (Transderm-Scop) 1.5 mg TRDERM ONETIME PRN PRN Reason: PONV Stop: 11/24/19 18:00 Last Admin: 11/24/19 07:13 Dose: 1.5 mg Sodium Chloride (Saline Flush) 10 ml FLUSH ASDIRECTED PRN PRN Reason: Keep Vein Open Stop: 11/24/19 18:00 Discontinued Medications Cefazolin Sodium (Ancef) Confirm Administered Dose 2 gm .ROUTE .STK-MED ONE Stop: 11/24/19 07:10 Fentanyl (Sublimaze) Confirm Administered Dose 100 mcg .ROUTE .STK-MED ONE Stop: 11/24/19 07:05 Lactated Ringer's (Ringers, Lactated) 1,000 mls @ 125 mls/hr IV ASDIRECTED [place] Stop: 11/17/19 23:00 Ketamine HCl (Ketalar) Confirm Administered Dose 500 mg .ROUTE .STK-MED ONE Stop: 11/24/19 07:05 Lidocaine/Sodium Bicarbonate (Buffered Lidocaine 1% In Ns 8.4%) 0.25 ml IDERM ONETIME PRN PRN Reason: Prior to IV Start Stop: 11/17/19 23:00 Midazolam HCl (Versed 1 Mg/Ml) Confirm Administered Dose 2 mg .ROUTE .STK-MED ONE Stop: 11/24/19 07:05 Propofol (Diprivan 20 Ml) Confirm Administered Dose 600 mg .ROUTE .STK-MED ONE Stop: 11/24/19 07:05 Sodium Chloride (Saline Flush) 10 ml FLUSH ASDIRECTED PRN PRN Reason: Keep Vein Open Stop: 11/17/19 23:00
--- NOTE | 2019-11-24 08:12 | PCM48HPAN ---
Post Anesthesia Note - EVALUATION WITHIN 48HRS OF ANESTHETIC Vital Signs in Normal Range: Yes Patient Participated in Evaluation: Yes Respiratory Function Stable: Yes Airway Patent: Yes Cardiovascular Function Stable: Yes Hydration Status Stable: Yes Pain Control Satisfactory: Yes Nausea and Vomiting Control Satisfactory: Yes Mental Status Recovered: Yes Vital Signs: Last Vital Signs Temp 36.1 C 11/24/19 07:20 Pulse 81 11/24/19 07:20 Resp 16 11/24/19 07:20 BP 133/87 11/24/19 07:20 Pulse Ox 98 11/24/19 07:20 0805 96.9F 134/73 71 18 97%
--- NOTE | 2019-11-24 08:12 | PCM.OPNOTE ---
- General Post-Op/Procedure Note Date of Surgery/Procedure: 11/24/19 Operative Procedure(s): Dilation and suction curettage Findings: Uterus sounded to approximately 10 cm. Minimal amount of tissue noted within the endometrial cavity. No adnexal abnormalities noted. Pre Op Diagnosis: bleeding Post-Op Diagnosis: Same Anesthesia Technique: MAC Primary Surgeon: Cresencio Bravo Secondary Surgeon: Yunier Rankin Anesthesia Provider: Leigh Gómez Pathology: Endometrial curettings Fluid Replacement, Intraop: 800 EBL in mLs: 10 Complications: None Condition: Good Free Text/Narrative:: Surgery duration prostate 5 minutes. The patient was taken to the operating room and placed in a supine position operating table. She received 2 g of Ancef preoperatively for infection prophylaxis. After adequate general MAC anesthesia patient was placed in a dorsal lithotomy position. A weighted speculum was placed in the vagina. Cervix is found to be dilated to approximately 15 greenland[place] size. Uterus was sounded to approximately 10 cm. It was found to be anterior and mid position. An 7 mm suction curette was then introduced in routine fashion the endometrial cavity was evacuated. The normal amount tissue was obtained. A medium size sharp curet was introduced and in a very careful fashion the endometrial cavity was curetted. It was be clear of any further tissue. The suction curet was then reintroduced and smalamount ofod was removed. No further tissue was removed. This point the D&C was discontinued. The single-toothed tenaculum used to stabilize the anterior lip the cervix was removed. Blood was removed from the vagina with a stick sponge and the weighted speculum was removed from the vagina. The patient was awakened from LMA anesthesia. The patient was discharged from the operating room in good condition.
--- NOTE | 2019-11-24 08:37 | PCM.SN ---
- Free Text/Narrative Note: 0830 Called to [facility] Candice complains of uterine pain 9/10 with chest tightness at 4/10. registered nurse midwife applied. Fentanyl and Famotadine ordered. Patient states she has similar discomfort after her last procedure in March as well. Will continue to monitor.
== END | disposition home or self-care (01) ==
LOC: JD.SDS 06:41
PROVIDERS: ATTEND Obstetrics & Gynecology
DX: O72.1 Other immediate postpartum hemorrhage (principal); K21.9 Gastro-esophageal reflux disease without esophagitis; F17.210 Nicotine dependence, cigarettes, uncomplicated; Z88.0 Allergy status to penicillin; Z91.010 Allergy to peanuts; Z91.013 Allergy to seafood; Z91.040 Latex allergy status; Z79.3 Long term (current) use of hormonal contraceptives
CPT/HCPCS: 36415; 58120; 81001; 81025; 85025; A9270; J0690; J1885; J2250; J2405; J2704; J3010; J3490; J7050; J7120; 00940

== ENCOUNTER 2020-05-15 17:07 | Emergency (ER) | payer MEDICAID ==
[2020-05-15] MEDS ORDERED: Sodium Chloride 0.9% 10 ML Syringe FLUSH PRN (17:34)
[2020-05-15] MEDS ORDERED: Ondansetron 4 MG/2 ML SDV IVPUSH ONE (17:34)
[2020-05-15] MEDS ORDERED: Sodium Chloride 0.9% 1,000 ML IV ONE (17:34)
--- NOTE | 2020-05-15 18:06 | EDM.PDOC ---
<Tru Gonzalez Deven - Last Filed: 05/15/20 17:51> ED HPI GENERAL MEDICAL PROBLEM - General Chief Complaint: Gastrointestinal Problem Stated Complaint: SENT BY DR MCKEON FOR FLUIDS Time Seen by Provider: 05/15/20 17:22 Source of Information: Reports: Patient History Limitations: Reports: No Limitations - History of Present Illness INITIAL COMMENTS - FREE TEXT/NARRATIVE: Candice is a 19 YO female that presents to the ED for nausea, vomiting, and abdominal pain for the past three days. She states that she is 7w4d and is A1 (spontaneous ). Has been seeing Dr. Mckeon for care. Pain is described as a sharp, stabbing sensation located in the LLQ with radiation to the left flank. Rated at a 5/10. Nothing will make pain better or worse. Associated symptoms are nausea, vomiting, and dark urine. She has not been able to keep fluids or food down since these symptoms began. Urinates approximately 4-5 times daily with minimal amounts produced. Denies shortness of breath, chest pain, dysuria, blood in urine, cloudy urine, diarrhea, constipation, vaginal discharge or bleeding. Has been prescribed Zofran and Tylenol but medications have not alleviated symptoms. 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 Left Lower Abdominal Pain Score (Numeric/FACES): 5 - Related Data Allergies Allergy/AdvReac Type Severity Reaction Status Date / Time latex Allergy Rash Verified 05/15/20 17:25 peanut Allergy Anaphylactic Verified 05/15/20 17:25 Shock Penicillins Allergy Anaphylactic Verified 05/15/20 17:25 Shock shellfish derived Allergy Anaphylactic Verified 05/15/20 17:25 Shock Home Meds: Home Meds No122/Iron/Folic Acid [ Multi Tablet] 1 each PO DAILY 09/24/19 [History] Ibuprofen [Motrin] 600 mg PO Q4H PRN tablet 11/24/19 [Rx] Past Medical History Gastrointestinal History: Reports: GERD Other Gastrointestinal History: Nausea Genitourinary History: Reports: UTI, Recurrent, Other (See Below) Other Genitourinary History: breast pain, burning with urination, dysuria OLIVE PACKER History: Reports: Endometriosis, , Spontaneous Other OLIVE PACKER History: AMENORRHEA, DERMOID CYST OF OVARY, GBS+ Musculoskeletal History: Reports: Other (See Below) Other Musculoskeletal History: body aches, right ankle sprain Neurological History: Reports: Headaches, Chronic Other Neuro History: DIZZINESS, SYNCOPE Psychiatric History: Reports: Anxiety, Depression Other Psychiatric History: off medication since being . went off meds 9 weeks ago Endocrine/Metabolic History: Reports: Obesity/BMI 30+ Hematologic History: Reports: Anemia, Iron Deficiency - Past Surgical History HEENT Surgical History: Reports: Oral Surgery Other HEENT Surgeries/Procedures: wisdom teeth removal Cardiovascular Surgical History: Reports: None Respiratory Surgical History: Reports: None Female Surgical History: Reports: Cystectomy, D&C Other Female Surgeries/Procedures: 2-para 1; misscarriage Male Surgical History: Reports: None Endocrine Surgical History: Reports: None Neurological Surgical History: Reports: None Musculoskeletal Surgical History: Reports: None Oncologic Surgical History: Reports: None Dermatological Surgical History: Reports: None Social & Family History - Family History Family Medical History: Noncontributory Cardiac: Reports: [place] Respiratory: Reports: Asthma, COPD Neurological: Reports: CVA Psychiatric: Reports: Bipolar Oncologic: Reports: Bladder, Breast, Lung - Caffeine Use Caffeine Use: Reports: Tea - Living Situation & Occupation Living situation: Reports: Single, with Significant Other (Boyfriend), with Fami ly ( ) Occupation: Unemployed ED ROS GENERAL - Review of Systems Review Of Systems: See Below Constitutional: Reports: Fever, Decreased Appetite Respiratory: Denies: Shortness of Breath Cardiovascular: Denies: Chest Pain GI/Abdominal: Reports: Abdominal Pain, Decreased Appetite, Nausea, Vomiting. Denies: Constipation, Diarrhea : Reports: Flank Pain. Denies: Discharge, Dysuria, Frequency, Hematuria, Urgency ED EXAM, RENAL/ - Physical Exam Exam: See Below Exam Limited By: No Limitations General Appearance: Alert, No Apparent Distress Head: Atraumatic, Normocephalic Respiratory/Chest: No Respiratory Distress, Lungs Clear, Normal Breath Sounds, No Accessory Muscle Use, Chest Non-Tender Cardiovascular: Regular Rate, Rhythm, No Gallop, No Murmur, No Rub GI/Abdominal: Normal Bowel Sounds, Soft, Tender (Tender in LLQ) Back Exam: CVA Tenderness (L). No: CVA Tenderness (R) Neurological: Alert, Oriented, Normal Cognition Skin Exam: Warm, Dry, Normal Color Departure - Departure Disposition: Home, Self-Care 01 Clinical Impression: Intrauterine , Nausea and vomiting during Ovarian cyst Qualifiers: Laterality: bilateral Qualified Code(s): N83.201 - Unspecified ovarian cyst, right side; N83.202 - Unspecified ovarian cyst, left side - Discharge Information Instructions: Ovarian Cyst, [id number] Referrals: Cresencio Mckeon MD [Primary Care Provider] - Forms: ED Department Discharge Additional Instructions: You were evaluated in the ER today regarding your abdominal pain/ with nausea and vomiting in . You did have some labs drawn, and these were within normal limits, your hCG level was 95,112. Your ultrasound demonstrated a single intrauterine with a heart rate of 137 bpm. Recommend that you do not lift anything heavier than a gallon of milk (5 lbs), do not engage in sexual activities, try to get as much pelvic rest as possible for the next few days. Please try not to exert yourself, rest and relax, and take it easy. Recommend you follow-up with your OLIVE PACKER, within the next 2 days or by the end of the week, for recheck your labs to make sure that your hCG is progressing as a normal should. Please take your Zofran, 1 tab dissolvable under your tongue every 8 hours as needed for further nausea relief. I would recommend that you stick to a clear liquid diet over the next 24 to 48 hours, advance to bland diet as tolerated. Please return to the ED at any time if your symptoms change or worsen. Sepsis Event Note (ED) - Evaluation Sepsis Screening Result: No Definite Risk <Emily Gutierrez - Last Filed: 05/15/20 19:57> Course - Vital Signs Last Recorded V/S: Last Vital Signs Temp 97.8 F 05/15/20 17:22 Pulse 90 05/15/20 17:22 Resp 16 05/15/20 17:22 BP 118/65 05/15/20 17:22 Pulse Ox 97 05/15/20 17:22 - Orders/Labs/Meds Orders: Active Orders 24 hr Category Date Time Status Peripheral IV Care [RC] . DIRECTED Care 05/15/20 17:34 Ordered Sodium Chloride 0.9% [Saline Flush] Med 05/15/20 17:34 Ordered 10 ml FLUSH ASDIRECTED PRN Peripheral IV Insertion Adult [OM.PC] Routine Oth 05/15/20 17:34 Ordered Medication Orders Sodium Chloride (Saline Flush) 10 ml FLUSH ASDIRECTED PRN PRN Reason: Keep Vein Open Last Admin: 05/15/20 18:16 Dose: 10 ml Documented by: BETSEY Labs: Laboratory Tests 05/15/20 05/15/20 Range/Units 17:50 18:31 HCG, Quant 59967.0 mIU/mL Urine Color Yellow (Yellow) Urine Appearance Slt cloudy H (Clear) Urine pH 5.5 (5.0-8.0) Ur Specific [place] > or = 1.030 (1.005-1.030) Urine Protein Trace H (Negative) Urine Glucose (UA) Negative (Negative) Urine Ketones 2+ H (Negative) Urine Occult Blood Negative (Negative) Urine Nitrite Negative (Negative) Urine Bilirubin 1+ H (Negative) Urine Urobilinogen 0.2 (0.2-1.0) Ur Leukocyte Esterase Negative (Negative) Urine RBC 0-5 (0-5) /hpf Urine WBC 0-5 (0-5) /hpf Ur Squamous Epith Cells 20-30 H (0-5) /hpf Urine Bacteria Many H (FEW) /hpf Urine Mucus Few (FEW) /hpf Meds: Medications Generic Name Dose Route Start Last Admin Trade Name Freq PRN Reason Stop Dose Admin Sodium Chloride 10 ml 05/15/20 17:34 05/15/20 18:16 Saline Flush FLUSH 10 ml ASDIRECTED PRN Administration Keep Vein Open Discontinued Medications Generic Name Dose Route Start Last Admin Trade Name Freq PRN Reason Stop Dose Admin Sodium Chloride 1,000 mls @ 999 mls/hr 05/15/20 17:34 05/15/20 17:52 Normal Saline IV 05/15/20 18:34 999 mls/hr ONETIME ONE Administration Ondansetron HCl 4 mg 05/15/20 17:34 05/15/20 17:51 Zofran IVPUSH 05/15/20 17:35 4 mg ONETIME ONE Administration - Re-Assessments/Exams Free Text/Narrative Re-Assessment/Exam: 05/15/20 18:25 I have read and reviewed the student's HPI and examined the patient and agree with MILY Bailey-student. Have ordered IV to be placed with labs and IV fluids and a transvaginal US. Departure - Departure Time of Disposition: 19:54 Condition: Good - Discharge Information *PRESCRIPTION DRUG MONITORING PROGRAM REVIEWED*: No *COPY OF PRESCRIPTION DRUG MONITORING REPORT IN PATIENT AVA: No Sepsis Event Note (ED) - Focused Exam Vital Signs: Vital Signs Temp Pulse Resp BP Pulse Ox 05/15/20 17:22 97.8 F 90 16 118/65 97 - My Orders Last 24 Hours: My Active Orders 05/15/20 17:34 Peripheral IV Care [RC] . DIRECTED Sodium Chloride 0.9% [Saline Flush] 10 ml FLUSH ASDIRECTED PRN Peripheral IV Insertion Adult [OM.PC] Routine - Assessment/Plan Last 24 Hours: My Active Orders 05/15/20 17:34 Peripheral IV Care [RC] . DIRECTED Sodium Chloride 0.9% [Saline Flush] 10 ml FLUSH ASDIRECTED PRN Peripheral IV Insertion Adult [OM.PC] Routine
--- NOTE | 2020-05-15 19:35 | US ---
Trimester obstetrical ultrasound: Multiple real-time images were obtained transvaginally. Comparison: Previous 1st trimester obstetrical ultrasound of 05/06/20. Dates: Current ultrasound: KAREN 12/29/20, gestational age 7 weeks 3 days Previous ultrasound (05/06/20): KAREN 12/28/20, gestational age 7 weeks 4 days Single intrauterine gestational sac is seen. pole and yolk sac are noted. No subchorionic hemorrhage is seen. 2.6 cm cyst is noted within the left ovary. Maternal ovaries are otherwise unremarkable. Right adnexal cyst next to the ovary measuring 1.2 cm is noted. Measurements: [place]-rump length: 1.20 cm - 7 weeks 3 days Heart rate: 137 bpm Impression: 1. Single intrauterine gestational sac. Dates as noted above. 2. 2.6 cm cyst is noted within the left ovary. Right adnexal cyst next of the right ovary measuring 1.2 cm. 3. No other complicating process is seen. Diagnostic code #2 This report was dictated in MDT
[2020-05-15] MEDS ORDERED: Metoclopramide 10 MG/2 ML SDV IVPUSH ONE (20:00)
== END 2020-05-15 20:39 | disposition home or self-care (01) ==
LOC: JD.ED 17:07
DX: O34.81 Maternal care for other abnormalities of pelvic organs, first trimester (principal); N83.202 Unspecified ovarian cyst, left side; N83.201 Unspecified ovarian cyst, right side; O21.9 Vomiting of pregnancy, unspecified; O99.211 Obesity complicating pregnancy, first trimester; Z91.040 Latex allergy status; Z88.0 Allergy status to penicillin; Z91.013 Allergy to seafood; Z91.010 Allergy to peanuts; Z98.890 Other specified postprocedural states; Z3A.01 Less than 8 weeks gestation of pregnancy
CPT/HCPCS: 36415; 76817; 81001; 84702; 96361; 96374; 96375; 99284; J2405; J2765; J7030

== ENCOUNTER 2020-07-21 12:49 | Emergency (ER) | payer MEDICAID ==
[2020-07-21] MEDS ORDERED: Sodium Chloride 0.9% 10 ML Syringe FLUSH PRN (13:52)
--- NOTE | 2020-07-21 14:07 | EDM.PDOC ---
ED HPI GENERAL MEDICAL PROBLEM - General Chief Complaint: DESIGN SUPERVISOR Problem Stated Complaint: 17 WEEKS PREG AND CRAMPING Time Seen by Provider: 07/21/20 13:40 Source of Information: Reports: Patient, RN Notes Reviewed History Limitations: Reports: No Limitations - History of Present Illness INITIAL COMMENTS - FREE TEXT/NARRATIVE: Patient is a 19-year-old female who presents to the ED for evaluation of her lower abdomen pain and cramping. Patient is 17 weeks , she is a G5, with 2 spontaneous miscarriages. Her DESIGN SUPERVISOR is Dr. Cresencio Bravo. Patient notes that her has been going well so far. She states for the last for 5 days however she is having some lower abdomen cramping, in her right lower abdomen, and she notes now that it is spread to her left abdomen. Sometimes it does shoot into her groin or down her leg. She states the pain is always there, it does seem to worsen with walking and movement. She notes that it does not feel like contractions, she states she is not also felt the baby move in the last few days. She states when she did feel the baby move she had flutters in her abdomen. She is not having any urinary symptoms, so no dysuria, frequency or urgency. States that her bowel movement was good last night. Patient notes that she is not having any increased nausea or vomiting, no fevers or chills, cough or shortness of breath. She does still retain her appendix and gallbladder. States she is only had ovarian cyst removed in the past. Bilateral Abdomen Pain Score (Numeric/FACES): 7 - Related Data Allergies Allergy/AdvReac Type Severity Reaction Status Date / Time latex Allergy Rash Verified 07/21/20 13:08 peanut Allergy Anaphylactic Verified 07/21/20 13:08 Shock Penicillins Allergy Anaphylactic Verified 07/21/20 13:08 Shock shellfish derived Allergy Anaphylactic Verified 07/21/20 13:08 Shock Home Meds: Home Meds No122/Iron/Folic Acid [ Multi Tablet] 1 each PO DAILY 09/24/19 [History] Acetaminophen/Butalbital/Caff [Fioricet 325-50-40 MG] 07/21/20 [History] Albuterol [Proventil HFA] 2 puff IH Q4HR PRN 07/21/20 [History] Dyclegis. 07/21/20 [History] Escitalopram Oxalate [Lexapro] 20 mg PO DAILY 07/21/20 [History] Ferrous Sulfate [Iron] 325 mg PO DAILY 07/21/20 [History] Ondansetron [Zofran ODT] 4 mg BUCCAL Q6H PRN 07/21/20 [History] Past Medical History - Past Health History Medical/Surgical History: Denies Medical/Surgical History Cardiovascular History: Reports: None Respiratory History: Reports: None Gastrointestinal History: Reports: GERD Other Gastrointestinal History: Nausea Genitourinary History: Reports: UTI, Recurrent, Other (See Below) Other Genitourinary History: breast pain, burning with urination, dysuria DESIGN SUPERVISOR History: Reports: Endometriosis, , Spontaneous Other DESIGN SUPERVISOR History: AMENORRHEA, DERMOID CYST OF OVARY, GBS+ Musculoskeletal History: Reports: Other (See Below) Other Musculoskeletal History: body aches, right ankle sprain Neurological History: Reports: Headaches, Chronic Other Neuro History: DIZZINESS, SYNCOPE Psychiatric History: Reports: Anxiety, Depression Other Psychiatric History: off medication since being . went off meds 9 weeks ago Endocrine/Metabolic History: Reports: Obesity/BMI 30+ Hematologic History: Reports: Anemia, Iron Deficiency Immunologic History: Reports: None Oncologic (Cancer) History: Reports: None Dermatologic History: Reports: None - Infectious Disease History Infectious Disease History: Reports: Chicken Pox, Mononucleosis - Past Surgical History Head Surgeries/Procedures: Reports: None HEENT Surgical History: Reports: Oral Surgery Other HEENT Surgeries/Procedures: wisdom teeth removal Cardiovascular Surgical History: Reports: None Respiratory Surgical History: Reports: None Female Surgical History: Reports: Cystectomy, D&C Other Female Surgeries/Procedures: 5:2 ; misscarriage Endocrine Surgical History: Reports: None Neurological Surgical History: Reports: None Musculoskeletal Surgical History: Reports: None Oncologic Surgical History: Reports: None Dermatological Surgical History: Reports: None Social & Family History - Family History Family Medical History: Noncontributory Cardiac: Reports: [place] Respiratory: Reports: Asthma, COPD Neurological: Reports: CVA Psychiatric: Reports: Bipolar Oncologic: Reports: Bladder, Breast, Lung - Tobacco Use Smoking Status *Q: Former Smoker Used Tobacco, but Quit: Yes Month/Year Tobacco Last Used: 2019 - Caffeine Use Caffeine Use: Reports: Tea - Recreational Drug Use Recreational Drug Use: No - Living Situation & Occupation Living situation: Reports: Single, with Significant Other (Boyfriend), with Family ( infant) Occupation: Unemployed ED ROS GENERAL - Review of Systems Review Of Systems: Comprehensive ROS is negative, except as noted in HPI. ED EXAM - Physical Exam Exam: See Below Exam Limited By: No Limitations General Appearance: Alert, WD/WN, No Apparent Distress Respiratory/Chest: No Respiratory Distress, Lungs Clear, Normal Breath Sounds, No Accessory Muscle Use, Chest Non-Tender Cardiovascular: Normal Peripheral Pulses, Regular Rate, Rhythm, No Murmur GI/Abdominal Exam: Normal Bowel Sounds, Soft, No Distention, No Mass, Tender (right lower abdomen pain/tenderness) Heart Tones: Present Heart Tones per Min: 146 Movement: Not Appreciated Neurological: Alert, Oriented, Normal Cognition, No Motor/Sensory Deficits Psychiatric: Normal Affect, Normal Mood Skin Exam: Warm, Dry, Intact, Normal Color, No Rash Course - Vital Signs Last Recorded V/S: Last Vital Signs Temp 97.2 F 07/21/20 13:03 Pulse 87 07/21/20 13:03 Resp 15 07/21/20 13:03 BP 109/57 L 07/21/20 13:03 Pulse Ox 97 07/21/20 13:03 - Orders/Labs/Meds Orders: Active Orders 24 hr Category Date Time Status Peripheral IV Care [RC] . DIRECTED Care 07/21/20 13:52 Ordered Abdomen Ltd [US] Stat Exams 07/21/20 13:51 Ordered OB Ltd 1 or More Fetus [US] Stat Exams 07/21/20 13:51 Ordered UA W/MICROSCOPIC [URIN] Stat Lab 07/21/20 14:07 Ordered Sodium Chloride 0.9% [Saline Flush] Med 07/21/20 13:52 Ordered 10 ml FLUSH ASDIRECTED PRN Peripheral IV Insertion Adult [OM.PC] Routine Oth 07/21/20 13:52 Ordered Medication Orders Sodium Chloride (Saline Flush) 10 ml FLUSH ASDIRECTED PRN PRN Reason: Keep Vein Open Labs: Laboratory Tests 07/21/20 07/21/20 07/21/20 Range/Units 14:10 14:10 14:10 WBC 11.35 H (3.98-10.04) K/mm3 RBC 4.19 (3.98-5.22) M/mm3 Hgb 11.7 D (11.2-15.7) gm/dl Hct 36.5 (34.1-44.9) % MCV 87.1 D (79.4-94.8) fl MCH 27.9 (25.6-32.2) pg MCHC 32.1 L (32.2-35.5) g/dl RDW Std Deviation 48.4 H (36.4-46.3) fL Plt Count 171 L (182-369) K/mm3 MPV 11.8 (9.4-12.3) fl Neut % (Auto) 71.9 H (34.0-71.1) % Lymph % (Auto) 18.4 L (19.3-51.7) % [place] % (Auto) 7.7 (4.7-12.5) % Eos % (Auto) 1.3 (0.7-5.8) Baso % (Auto) 0.3 (0.1-1.2) % Neut # (Auto) 8.17 H (1.56-6.13) K/mm3 Lymph # (Auto) 2.09 (1.18-3.74) K/mm3 [place] # (Auto) 0.87 H (0.24-0.36) K/mm3 Eos # (Auto) 0.15 (0.04-0.36) K/mm3 Baso # (Auto) 0.03 (0.01-0.08) K/mm3 Sodium 139 (136-145) mEq/L Potassium 3.9 (3.5-5.1) mEq/L Chloride 104 (98-107) mEq/L Carbon Dioxide 25 (21-32) mEq/L Anion Gap 13.9 (5-15) BUN 6 L (7-18) mg/dL Creatinine 0.5 L (0.55-1.02) mg/dL Est Cr Clr Drug Dosing 154.98 mL/min Estimated GFR (MDRD) > 60 (>60) mL/min BUN/Creatinine Ratio 12.0 L (14-18) Glucose 84 (74-106) mg/dL Calcium 8.6 (8.5-10.1) mg/dL Total Bilirubin 0.2 (0.2-1.0) mg/dL AST 12 L (15-37) U/L ALT 18 (14-59) U/L Alkaline Phosphatase 81 (46-116) U/L C-Reactive Protein 2.0 H* (<1.0) mg/dL Total Protein 6.6 (6.4-8.2) g/dl Albumin 2.7 L (3.4-5.0) g/dl Globulin 3.9 gm/dL Albumin/Globulin Ratio 0.7 L (1-2) Meds: Medications Generic Name Dose Route Start Last Admin Trade Name Freq PRN Reason Stop Dose Admin Sodium Chloride 10 ml 07/21/20 13:52 Saline Flush FLUSH ASDIRECTED PRN Keep Vein Open - Re-Assessments/Exams Free Text/Narrative Re-Assessment/Exam: 07/21/20 14:13 Patient presents to the ED for the evaluation of her abdomen cramping and . I have ordered ultrasounds to include OB limited and a abdomen limited for evaluation of the baby and appendix. Along with labs and a urinalysis. 07/21/20 15:02 Labs have returned, metabolic panel appears to be within normal limits. White count is mildly elevated, but this might be due to . Ultrasound did demonstrate an appropriate interval growth when compared to the previous the fetus. Heart rate is 156 bpm. No or placental abnormality identified. The appendix was not visualized on the abdomen ultrasound, so they cannot rule out appendicitis, but there was no secondary signs like inflammation around the area. 07/21/20 16:20 Patient CRP was mildly elevated at 2.0, the patient had a mildly elevated white blood cell count, but this is typical of . No other metabolic abnormalities were appreciated. I did consult Dr. Bravo regarding the patient's status, and he notes that she can likely go home, monitor her symptoms, and call his clinic in the morning for strict follow-up and to make sure everything is getting better. Patient is okay with this plan, I did give her strict return precautions and she did agree to comply. Departure - Departure Time of Disposition: 16:21 Disposition: Home, Self-Care 01 Condition: Good Clinical Impression: RLQ abdominal pain, 17 weeks gestation of - Discharge Information *PRESCRIPTION DRUG MONITORING PROGRAM REVIEWED*: No *COPY OF PRESCRIPTION DRUG MONITORING REPORT IN PATIENT AVA: No Instructions: Abdominal Pain During , Appendicitis, Adult, [id number] Referrals: Cresencio Bravo MD [Primary Care Provider] - Forms: ED Department Discharge Additional Instructions: You were evaluated in the ER today for your lower abdomen pain. An ultrasound of your baby, along with your appendix was obtained at today's visit. Your ultrasound demonstrated that your baby is growing within normal limits, and the heartbeat was an appropriate range for gestational age. The abdomen ultrasound was inconclusive at today's visit, the appendix was not definitely seen, and there was no surrounding inflammatory change to highly suggest appendicitis, but again we were not able to see the appendix, so appendicitis is not definitively ruled out at this time. I did consult your DESIGN SUPERVISOR, Dr. Bravo, and we agree that you should monitor your temperature and pain, and other symptoms over the night, and follow-up with him in the morning for further management if warranted. If you should spike a fever, have increasing abdomen pain, this would be cause for concern to return to the ER for more immediate management. Please again call Dr. Bravo in the morning for further evaluation and management. Please return to the ER at any time if symptoms change or worsen. Sepsis Event Note (ED) - Evaluation Sepsis Screening Result: No Definite Risk - Focused Exam Vital Signs: Vital Signs Temp Pulse Resp BP Pulse Ox 07/21/20 13:03 97.2 F 87 15 109/57 L 97 - My Orders Last 24 Hours: My Active Orders 07/21/20 13:51 Abdomen Ltd [US] Stat OB Ltd 1 or More Fetus [US] Stat 07/21/20 13:52 Peripheral IV Care [RC] . DIRECTED Sodium Chloride 0.9% [Saline Flush] 10 ml FLUSH ASDIRECTED PRN Peripheral IV Insertion Adult [OM.PC] Routine 07/21/20 14:07 UA W/MICROSCOPIC [URIN] Stat - Assessment/Plan Last 24 Hours: My Active Orders 07/21/20 13:51 Abdomen Ltd [US] Stat OB Ltd 1 or More Fetus [US] Stat 07/21/20 13:52 Peripheral IV Care [RC] . DIRECTED Sodium Chloride 0.9% [Saline Flush] 10 ml FLUSH ASDIRECTED PRN Peripheral IV Insertion Adult [OM.PC] Routine 07/21/20 14:07 UA W/MICROSCOPIC [URIN] Stat
--- NOTE | 2020-08-23 12:24 | US ---
PROCEDURE INFORMATION: Exam: US , Limited Exam date and time: 07/21/2020 2:29 PM Age: 19 years old Clinical indication: complicated by abdominal or pelvic pain; Right lower quadrant; Second trimester; Gestational age or lmp: 17wks; TECHNIQUE: Imaging protocol: Real-time ultrasound of the maternal uterus with image documentation. Exam focused on the clinical indication. COMPARISON: US OB Transvaginal 05/15/2020 7:08 PM FINDINGS: Gestation: Single live intrauterine is identified. heart rate is 156 bpm. Estimated gestational age by ultrasound assessment is 17 weeks 2 days corresponded to an ultrasound derived delivery date December 27, 2020. This size is consistent with the previous ultrasound. Cervical length is normal at 4.2 cm. Amniotic fluid index is normal at 9.4 cm. IMPRESSION: There has been appropriate interval growth when compared to the previous emanation. No or placental abnormality identified. Thank you for allowing us to participate in the care of your patient. Dictated and Authenticated by: Jac Arboleda MD 08/23/2020 12:28 PM Central Time ([place] & [place]) MAR[facility]
--- NOTE | 2020-08-23 12:25 | US ---
PROCEDURE INFORMATION: Exam: US Abdomen, Limited; Appendix Exam date and time: 07/21/2020 2:39 PM Age: 19 years old Clinical indication: Abdominal pain; Acute; TECHNIQUE: Imaging protocol: US abdomen. Real time ultrasound with image documentation. Limited exam focused on the appendix. COMPARISON: US Retroperitoneal Comp 03/31/2019 3:56 PM FINDINGS: Appendix: The appendix is not visualized as a discrete structure. There are no secondary signs for appendicitis. IMPRESSION: The appendix was not visualized. Appendicitis cannot be excluded. Thank you for allowing us to participate in the care of your patient. Dictated and Authenticated by: Jac Arboleda MD 08/23/2020 12:29 PM Central Time ([place] & [place]) [facility]
== END 2020-07-21 16:45 | disposition home or self-care (01) ==
LOC: JD.ED 12:49
DX: O99.891 Other specified diseases and conditions complicating pregnancy (principal); R10.31 Right lower quadrant pain; O99.342 Other mental disorders complicating pregnancy, second trimester; F41.9 Anxiety disorder, unspecified; F32.9 Major depressive disorder, single episode, unspecified; O99.212 Obesity complicating pregnancy, second trimester; O99.012 Anemia complicating pregnancy, second trimester; Z87.891 Personal history of nicotine dependence; Z91.040 Latex allergy status; Z91.010 Allergy to peanuts; Z88.0 Allergy status to penicillin; Z91.013 Allergy to seafood; Z79.899 Other long term (current) drug therapy; Z3A.17 17 weeks gestation of pregnancy
CPT/HCPCS: 36415; 76705; 76705-26; 76815; 76815-26; 80053; 85025; 86140; 99283; 99284-25

== ENCOUNTER 2020-08-24 15:09 | Day surgery (SDC) | payer MEDICAID ==
[2020-08-24] MEDS ORDERED: Sodium Chloride 0.9% 10 ML Syringe FLUSH PRN (16:05)
[2020-08-24] MEDS ORDERED: Ondansetron 4 MG/2 ML SDV IVPUSH ONE (16:06)
[2020-08-24] MEDS ORDERED: Sodium Chloride 0.9% 1,000 ML IV ONE (16:06)
[2020-08-24] MEDS ORDERED: HYDROmorphone 0.5 MG/0.5 ML Syringe IVPUSH ONE (16:07)
--- NOTE | 2020-08-24 16:14 | EDM.PDOC ---
ED HPI GENERAL MEDICAL PROBLEM - General Chief Complaint: Abdominal Pain Stated Complaint: ABDOMINAL PAIN/22 WEEKS PG Time Seen by Provider: 08/24/20 15:56 Source of Information: Reports: Patient, Old Records (OB visit from 08/23/2020), RN Notes Reviewed History Limitations: Reports: No Limitations - History of Present Illness INITIAL COMMENTS - FREE TEXT/NARRATIVE: Patient is a 19-year-old female who presents to the ED for evaluation of her right lower quadrant pain. Patient is roughly 21 weeks , she is a A1 with a spontaneous miscarriage. She was evaluated yesterday in this facility by her [employer] MAKER, Dr. Bravo for ongoing right lower quadrant abdominal pain. She had a ultrasound done which demonstrated a fetus within normal limits. Her white blood cell count was mildly elevated 11.68 with 72% neutrophils. Metabolic panel essentially unremarkable, and she was found to have a questionable UTI. She was started on antibiotics for this. She notes that the pain is just not gotten much better, and is worse with movement, coughing, otherwise. She has not been able to eat or drink anything as the nausea has been too intense, she tried eat a quarter cheeseburger today at around 230, but this came straight back up due to the nausea. She notes that the pain is in what she calls her pelvic bone, to the right side of her bellybutton, it seems t o radiate into her back. She still retains her appendix at this time, has not felt pain like this before ever. She did not take anything for pain medications prior to coming to the ER. Right Lower Abdomen Pain Score (Numeric/FACES): 9 - Related Data Allergies Allergy/AdvReac Type Severity Reaction Status Date / Time latex Allergy Severe Rash Verified 08/24/20 15:28 peanut Allergy Severe Anaphylactic Verified 08/24/20 15:28 Shock Penicillins Allergy Severe Anaphylactic Verified 08/24/20 15:28 Shock shellfish derived Allergy Severe Anaphylactic Verified 08/24/20 15:28 Shock Home Meds: Home Meds No122/Iron/Folic Acid [ Multi Tablet] 1 each PO DAILY 09/24/19 [History] Acetaminophen/Butalbital/Caff [Fioricet 325-50-40 MG] 1 tab PO ASDIRECTED 07/21/20 [History] Albuterol [Proventil HFA] 2 puff IH Q4HR PRN 07/21/20 [History] Dyclegis. 1 tab PO ASDIRECTED 07/21/20 [History] Escitalopram Oxalate [Lexapro] 20 mg PO DAILY 07/21/20 [History] Ondansetron [Zofran ODT] 4 mg BUCCAL Q6H PRN 07/21/20 [History] Nitrofurantoin Monohyd/M-Cryst [Macrobid 100 mg Capsule] 100 mg PO BID 08/24/20 [History] Past Medical History Gastrointestinal History: Reports: GERD, Other (See Below) Other Gastrointestinal History: Nausea Genitourinary History: Reports: UTI, Recurrent Other Genitourinary History: breast pain, burning with urination, dysuria [employer] History: Reports: Endometriosis, , Spontaneous (x1) : 4 Para: 2 Other [employer]KER History: AMENORRHEA, DERMOID CYST OF OVARY, GBS+ Musculoskeletal History: Reports: Other (See Below) Other Musculoskeletal History: body aches, right ankle sprain Neurological History: Reports: Headaches, Chronic Other Neuro History: DIZZINESS, SYNCOPE Psychiatric History: Reports: Anxiety, Depression Other Psychiatric History: off medication since being . went off meds 9 weeks ago Endocrine/Metabolic History: Reports: Obesity/BMI 30+ Hematologic History: Reports: Anemia, Iron Deficiency - Infectious Disease History Infectious Disease History: Reports: Chicken Pox, Mononucleosis - Past Surgical History HEENT Surgical History: Reports: Oral Surgery Other HEENT Surgeries/Procedures: wisdom teeth removal Female Surgical History: Reports: D&C Social & Family History - Family History Family Medical History: Noncontributory Cardiac: Reports: [place] Respiratory: Reports: Asthma, COPD Neurological: Reports: CVA Psychiatric: Reports: Bipolar Oncologic: Reports: Bladder, Breast, Lung - Tobacco Use Tobacco Use Status *Q: Former Tobacco User Used Tobacco, but Quit: Yes Month/Year Tobacco Last Used: 2 yrs - Caffeine Use Caffeine Use: Reports: Tea - Recreational Drug Use Recreational Drug Use: No - Living Situation & Occupation Living situation: Reports: Single, with Significant Other (Boyfriend), with Family ( ) Occupation: Unemployed ED ROS GENERAL - Review of Systems Review Of Systems: Comprehensive ROS is negative, except as noted in HPI. ED EXAM, GI/ABD - Physical Exam Exam: See Below Exam Limited By: No Limitations General Appearance: Alert, WD/WN, No Apparent Distress Eyes: Bilateral: Normal Appearance Respiratory/Chest: No Respiratory Distress, Lungs Clear, Normal Breath Sounds, No Accessory Muscle Use, Chest Non-Tender Cardiovascular: Normal Peripheral Pulses, Regular Rate, Rhythm, No Murmur GI/Abdominal Exam: Normal Bowel Sounds, Soft, No Distention, No Mass, Rebound (slight rebpund to RLQ), Tender (RLQ mainly) Extremities: Normal Inspection, Normal Capillary Refill Neurological: Alert, Oriented, Normal Cognition, No Motor/Sensory Deficits Psychiatric: Normal Affect, Normal Mood Skin Exam: Warm, Dry, Intact, Normal Color, No Rash Course - Vital Signs Last Recorded V/S: Last Vital Signs Temp 98.1 F 08/24/20 15:35 Pulse 60 08/24/20 18:40 Resp 18 08/24/20 18:40 BP 117/65 08/24/20 15:35 Pulse Ox 98 08/24/20 18:40 - Orders/Labs/Meds Orders: Active Orders 24 hr Category Date Time Status Admission Status [Patient Status] [ADT] Routine ADT 08/24/20 19:57 Active Notify Provider Consults [RC] ASDIRECTED Care 08/24/20 19:33 Ordered Consult to Physician [CONS] Stat Cons 08/24/20 19:32 Ordered Abdomen Ltd [US] Stat Exams 08/24/20 15:57 Taken CORONAVIRUS COVID-19 JOSEF [MOLEC] Stat Lab 08/24/20 19:54 Ordered CORONAVIRUS COVID-19 RAPID [MOLEC] Stat Lab 08/24/20 19:54 Ordered Sodium Chloride 0.9% [Saline Flush] Med 08/24/20 16:05 Active 10 ml FLUSH ASDIRECTED PRN Peripheral IV Insertion Adult [OM.PC] Routine Oth 08/24/20 16:05 Ordered Schedule Procedure [COMM] Stat Oth 08/24/20 19:57 Ordered Medication Orders Sodium Chloride (Saline Flush) 10 ml FLUSH ASDIRECTED PRN PRN Reason: Keep Vein Open Last Admin: 08/24/20 17:00 Dose: 10 ml Documented by: VALENTINO Labs: Laboratory Tests 08/24/20 08/24/20 Range/Units 16:10 16:10 WBC 11.08 H (3.98-10.04) K/mm3 RBC 4.71 (3.98-5.22) M/mm3 Hgb 13.1 (11.2-15.7) gm/dl Hct 41.2 (34.1-44.9) % MCV 87.5 (79.4-94.8) fl MCH 27.8 (25.6-32.2) pg MCHC 31.8 L (32.2-35.5) g/dl RDW Std Deviation 51.1 H (36.4-46.3) fL Plt Count 181 L (182-369) K/mm3 MPV 11.5 (9.4-12.3) fl Neut % (Auto) 69.8 (34.0-71.1) % Lymph % (Auto) 19.5 (19.3-51.7) % [place] % (Auto) 8.8 (4.7-12.5) % Eos % (Auto) 1.3 (0.7-5.8) Baso % (Auto) 0.3 (0.1-1.2) % Neut # (Auto) 7.74 H (1.56-6.13) K/mm3 Lymph # (Auto) 2.16 (1.18-3.74) K/mm3 [place] # (Auto) 0.98 H (0.24-0.36) K/mm3 Eos # (Auto) 0.14 (0.04-0.36) K/mm3 Baso # (Auto) 0.03 (0.01-0.08) K/mm3 C-Reactive Protein 2.4 H* (<1.0) mg/dL Meds: Medications Generic Name Dose Route Start Last Admin Trade Name Freq PRN Reason Stop Dose Admin Sodium Chloride 10 ml 08/24/20 16:05 08/24/20 17:00 Saline Flush FLUSH 10 ml ASDIRECTED PRN Administration Keep Vein Open Discontinued Medications Generic Name Dose Route Start Last Admin Trade Name Freq PRN Reason Stop Dose Admin Hydromorphone HCl 0.5 mg 08/24/20 16:07 08/24/20 17:00 Dilaudid IVPUSH 08/24/20 16:08 0.25 mg ONETIME ONE Administration Sodium Chloride 1,000 mls @ 500 mls/hr 08/24/20 16:06 08/24/20 17:01 Normal Saline IV 11/07/20 18:05 500 mls/hr ONETIME ONE Administration Ondansetron HCl 4 mg 08/24/20 16:06 08/24/20 17:00 Zofran IVPUSH 08/24/20 16:07 4 mg ONETIME ONE Administration - Re-Assessments/Exams Free Text/Narrative Re-Assessment/Exam: 08/24/20 16:14 Patient presents to the ED for evaluation of her ongoing abdomen discomfort. I have ordered repeat labs to include a CBC, CRP, and abdomen ultrasound for further evaluation of her appendix. 08/24/20 17:03 Patient's white count still mildly elevated at 11.08 with 69% neutrophils on auto differential, CRP is also mildly elevated at 2.4. 08/24/20 19:33 The ultrasound was not able to visualize the appendix. Radiology suggests going forward with CT if there are symptoms and suspicion for acute appendicitis. I have tried to call Dr. Bravo, for direction on this but he did not answer the phone, so I was in contact with Dr. Stovall the [employer] on-call, she states that the the benefits outweigh the risk doing the CT at this time, however the patient has a shellfish allergy, so she cannot receive IV contrast, as she has had an anaphylactic reaction in the past. At this point in time I did call Dr. Crane our surgeon implementation coordinator for further evaluation and management. We will await his evaluation, and then figure out a plan for her. At this point in time COVID-19 testing has not been performed. 08/24/20 19:58 We did order the rapid Covid for screening for OR purposes. Dr. Crane would like to take her for a lap appendectomy. Departure - Departure Time of Disposition: 19:56 Disposition: DC/Tfer to [facility] Condition: Good Clinical Impression: Appendicitis Qualifiers: Appendicitis type: acute appendicitis Acute appendicitis type: with localized peritonitis Appendicitis gangrene presence: unspecified whether gangrene present Appendicitis perforation presence: unspecified whether perforation present Appendicitis abscess presence: unspecified whether abscess present Qualified Code(s): K35.30 - Acute appendicitis with localized peritonitis, without perforation or gangrene - Discharge Information Referrals: Cresencio Bravo MD [Primary Care Provider] - Forms: ED Department Discharge Sepsis Event Note (ED) - Evaluation Sepsis Screening Result: No Definite Risk - Focused Exam Vital Signs: Vital Signs Temp Pulse Resp BP Pulse Ox 08/24/20 18:40 60 18 98 08/24/20 15:35 98.1 F 77 20 117/65 97 - My Orders Last 24 Hours: My Active Orders 08/24/20 15:57 Abdomen Ltd [US] Stat 08/24/20 16:05 Sodium Chloride 0.9% [Saline Flush] 10 ml FLUSH ASDIRECTED PRN Peripheral IV Insertion Adult [OM.PC] Routine 08/24/20 19:32 Consult to Physician [CONS] Stat 08/24/20 19:33 Notify Provider Consults [RC] ASDIRECTED 08/24/20 19:54 CORONAVIRUS COVID-19 JOSEF [MOLEC] Stat CORONAVIRUS COVID-19 RAPID [MOLEC] Stat 08/24/20 19:57 Admission Status [Patient Status] [ADT] Routine Schedule Procedure [COMM] Stat - Assessment/Plan Last 24 Hours: My Active Orders 08/24/20 15:57 Abdomen Ltd [US] Stat 08/24/20 16:05 Sodium Chloride 0.9% [Saline Flush] 10 ml FLUSH ASDIRECTED PRN Peripheral IV Insertion Adult [OM.PC] Routine 08/24/20 19:32 Consult to Physician [CONS] Stat 08/24/20 19:33 Notify Provider Consults [RC] ASDIRECTED 08/24/20 19:54 CORONAVIRUS COVID-19 JOSEF [MOLEC] Stat CORONAVIRUS COVID-19 RAPID [MOLEC] Stat 08/24/20 19:57 Admission Status [Patient Status] [ADT] Routine Schedule Procedure [COMM] Stat
[2020-08-24] MEDS ORDERED: Levofloxacin/Dextrose 5%-Water 500 MG in Premix Bag 1 BAG IV ONE (20:01)
[2020-08-24] MEDS ORDERED: metroNIDAZOLE/Normal Saline 500 MG in Premix Bag 1 BAG IV ONE (20:03)
--- NOTE | 2020-08-24 20:11 | PCM.HP.2 ---
H&P History of Present Illness - General Date of Service: 08/24/20 Admit Problem/Dx: Admission Diagnosis/Problem Admission Diagnosis/Problem Appendicitis Source of Information: Patient History Limitations: Reports: No Limitations - History of Present Illness Other HPI/Comments: Ms. Alcala is a 19 yo woman who is 21 weeks who presents with abdominal pain. This started two days ago. The pain is in the right lower quadrant and radiates to her back. She saw Dr. Bravo in clinic, and obstetric ultrasound showed no abnormalities. U/a showed evidence of a urinary tract infection. The patient reports that the pain she is experiencing is similar to that of prior urinary infection. She denies fever. Her pain was worse yesterday, and has been steady since then. She has been vomiting and has no appetite. She is passing flatus/ having regular bowel movements. She was started on antibiotics for a UTI and this helped some with her sensation of dysuria but not really with her pain. WBC and CRP are slightly elevated. She has McBurney point tenderness, but abdomen is soft and there is no suggestion of peritonitis. No rebound or guarding. Palpation in the left upper quadrant generates some referred pain to the RLQ. Right Lower Abdomen Pain Score (Numeric/FACES): 9 - Related Data Allergies/Adverse Reactions: Allergies Allergy/AdvReac Type Severity Reaction Status Date / Time latex Allergy Severe Rash Verified 08/24/20 15:28 peanut Allergy Severe Anaphylactic Verified 08/24/20 15:28 Shock Penicillins Allergy Severe Anaphylactic Verified 08/24/20 15:28 Shock shellfish derived Allergy Severe Anaphylactic Verified 08/24/20 15:28 Shock Home Medications: Home Meds No122/Iron/Folic Acid [ Multi Tablet] 1 each PO DAILY 09/24/19 [History] Acetaminophen/Butalbital/Caff [Fioricet 325-50-40 MG] 1 tab PO ASDIRECTED [History] Albuterol [Proventil HFA] 2 puff IH Q4HR PRN 07/21/20 [History] Dyclegis. 1 tab PO ASDIRECTED 07/21/20 [History] Escitalopram Oxalate [Lexapro] 20 mg PO DAILY 07/21/20 [History] Ondansetron [Zofran ODT] 4 mg BUCCAL Q6H PRN 07/21/20 [History] Nitrofurantoin Monohyd/M-Cryst [Macrobid 100 mg Capsule] 100 mg PO BID 08/24/20 [History] Past Medical History - Past Health History Medical/Surgical History: Denies Medical/Surgical History Cardiovascular History: Reports: None Respiratory History: Reports: None Gastrointestinal History: Reports: GERD, Other (See Below) Other Gastrointestinal History: Nausea Genitourinary History: Reports: UTI, Recurrent Other Genitourinary History: breast pain, burning with urination, dysuria [employer] History: Reports: Endometriosis, , Spontaneous (x1) Other OB/BYN History: AMENORRHEA, DERMOID CYST OF OVARY, GBS+ Musculoskeletal History: Reports: Other (See Below) Other Musculoskeletal History: body aches, right ankle sprain Neurological History: Reports: Headaches, Chronic Other Neuro History: DIZZINESS, SYNCOPE Psychiatric History: Reports: Anxiety, Depression Other Psychiatric History: off medication since being . went off meds 9 weeks ago Endocrine/Metabolic History: Reports: Obesity/BMI 30+ Hematologic History: Reports: Anemia, Iron Deficiency Immunologic History: Reports: None Oncologic (Cancer) History: Reports: None Dermatologic History: Reports: None - Infectious Disease History Infectious Disease History: Reports: Chicken Pox, Mononucleosis - Past Surgical History HEENT Surgical History: Reports: Oral Surgery Other HEENT Surgeries/Procedures: wisdom teeth removal Female Surgical History: Reports: D&C Social & Family History - Family History Family Medical History: Noncontributory Cardiac: Reports: [place] Respiratory: Reports: Asthma, COPD Neurological: Reports: CVA Psychiatric: Reports: Bipolar Oncologic: Reports: Bladder, Breast, Lung - Tobacco Use Tobacco Use Status *Q: Former Tobacco User Used Tobacco, but Quit: Yes Month/Year Tobacco Last Used: 2 yrs - Caffeine Use Caffeine Use: Reports: Tea - Recreational Drug Use Recreational Drug Use: No - Living Situation & Occupation Living situation: Reports: Single, with Significant Other (Boyfriend), with Family ( ) Occupation: Unemployed H&P Review of Systems - Review of Systems: Review Of Systems: See Below General: Reports: Decreased Appetite HEENT: Reports: No Symptoms Pulmonary: Reports: No Symptoms Cardiovascular: Reports: No Symptoms Gastrointestinal: Reports: Abdominal Pain, Flatus, Nausea Genitourinary: Reports: Dysuria, Burning Musculoskeletal: Reports: Back Pain Skin: Reports: No Symptoms Psychiatric: Reports: No Symptoms Neurological: Reports: No Symptoms Hematologic/Lymphatic: Reports: No Symptoms Immunologic: Reports: No Symptoms Exam - Exam Exam: See Below - Vital Signs Vital Signs: Last Vital Signs Temp 36.7 C 08/24/20 15:35 Pulse 60 08/24/20 18:40 Resp 18 08/24/20 18:40 BP 117/65 08/24/20 15:35 Pulse Ox 98 08/24/20 18:40 Weight: 88.904 kg - Exam Quality Assessment: Supplemental Oxygen General: Alert, Oriented, Cooperative HEENT: Conjunctiva Clear Neck: Supple Lungs: Clear to Auscultation, Normal Respiratory Effort Cardiovascular: Regular Rate GI/Abdominal Exam: Soft, Other (focal RLQ tenderness without peritonitis or palpable mass) Extremities: Normal Inspection Skin: Warm, Dry Neuro Extensive - Mental Status: Alert, Oriented x3 Psychiatric: Normal Mood - Patient Data Lab Results Last 24 hrs: Laboratory Results - last 24 hr 08/24/20 08/24/20 Range/Units 16:10 16:10 WBC 11.08 H (3.98-10.04) K/mm3 RBC 4.71 (3.98-5.22) M/mm3 Hgb 13.1 (11.2-15.7) gm/dl Hct 41.2 (34.1-44.9) % MCV 87.5 (79.4-94.8) fl MCH 27.8 (25.6-32.2) pg MCHC 31.8 L (32.2-35.5) g/dl RDW Std Deviation 51.1 H (36.4-46.3) fL Plt Count 181 L (182-369) K/mm3 MPV 11.5 (9.4-12.3) fl Neut % (Auto) 69.8 (34.0-71.1) % Lymph % (Auto) 19.5 (19.3-51.7) % [place] % (Auto) 8.8 (4.7-12.5) % Eos % (Auto) 1.3 (0.7-5.8) Baso % (Auto) 0.3 (0.1-1.2) % Neut # (Auto) 7.74 H (1.56-6.13) K/mm3 Lymph # (Auto) 2.16 (1.18-3.74) K/mm3 [place] # (Auto) 0.98 H (0.24-0.36) K/mm3 Eos # (Auto) 0.14 (0.04-0.36) K/mm3 Baso # (Auto) 0.03 (0.01-0.08) K/mm3 C-Reactive Protein 2.4 H* (<1.0) mg/dL Result Diagrams: 08/24/20 16:10 Sepsis Event Note - Evaluation Sepsis Screening Result: No Definite Risk - Focused Exam Vital Signs: Vital Signs Temp Pulse Resp BP Pulse Ox 08/24/20 18:40 60 18 98 08/24/20 15:35 36.7 C 77 20 117/65 97 Problem List Initiated/Reviewed/Updated: Yes Orders Last 24hrs: Active Orders 24 hr Category Date Time Status Admission Status [Patient Status] [ADT] Routine ADT 08/24/20 19:57 Active Notify Provider Consults [RC] ASDIRECTED Care 08/24/20 19:33 Active Consult to Physician [CONS] Stat Cons 08/24/20 19:32 Active Abdomen Ltd [US] Stat Exams 08/24/20 15:57 Taken CORONAVIRUS COVID-19 JOSEF [MOLEC] Stat Lab 08/24/20 19:54 Ordered CORONAVIRUS COVID-19 RAPID [MOLEC] Stat Lab 08/24/20 19:54 Ordered Levofloxacin/Dextrose 5%-Water [Levaquin in D5W 500 MG/ Med 08/24/20 20:01 Ordered 100 ML] 500 mg Premix Bag 1 bag IV ONETIME Sodium Chloride 0.9% [Saline Flush] Med 08/24/20 16:05 Active 10 ml FLUSH ASDIRECTED PRN metroNIDAZOLE/Normal Saline [Flagyl 500 MG in NS 100 ML Med 08/24/20 20:03 Ordered ] 500 mg Premix Bag 1 bag IV ONETIME Peripheral IV Insertion Adult [OM.PC] Routine Oth 08/24/20 16:05 Ordered Schedule Procedure [COMM] Stat Oth 08/24/20 19:57 Ordered Medication Orders Levofloxacin/Dextrose 500 mg/ (Premix) 100 mls @ 100 mls/hr IV ONETIME ONE Stop: 08/24/20 21:00 Metronidazole 500 mg/ Premix 100 mls @ 100 mls/hr IV ONETIME ONE Stop: 08/24/20 21:02 Sodium Chloride (Saline Flush) 10 ml FLUSH ASDIRECTED PRN PRN Reason: Keep Vein Open Last Admin: 08/24/20 17:00 Dose: 10 ml Documented by: VALENTINO Assessment/Plan Comment:: Two days of RLQ pain with associated nausea, vomiting and decreased appetite in 19 yo woman who is 21 weeks . She had an ultrasound which did not visualize the appendix. She has a shellfish allergy and thus would need to be medicated per protocol to have a CT scan with contrast. Her history and exam are equivocal for appendicitis. Labs show evidence of inflammatory process with slightly elevated WBC, CRP. She does have evidence of UTI, for which she has been started on antibiotics. I posed two options to the patient- laparoscopic appendectomy now, understanding the possibility of the diagnosis not being appendicitis in this case. There is some risk of miscarriage with anesthesia. The other option I proposed was admission for observation. However, I discussed with the patient that, if this is appendicitis, and it has been going on since , waiting to operate may pose more risk of miscarriage than if we operate now. At least with surgery now, the problem is potentially addressed in a timely fashion and appendicitis will be ruled out. She wishes to proceed with laparoscopic appendectomy now and informed consent was obtained. - Mortality Measure Prognosis:: Good
[2020-08-24] MEDS ORDERED: Scopolamine 1.5 MG Transdermal Patch TOP ONE (20:24)
[2020-08-24] MEDS ORDERED: Bupivacaine 0.5%/EPINEPHrine 1:200,000 50 ML MDV ONE (20:24)
[2020-08-24] MEDS ORDERED: Propofol 200 MG/20 ML SDV ONE (20:43)
[2020-08-24] MEDS ORDERED: Succinylcholine/Sod PF 100 MG/5 ML SYRINGE IV ONE (20:43)
[2020-08-24] MEDS ORDERED: Rocuronium 50 MG/5 ML Vial ONE (20:43)
[2020-08-24] MEDS ORDERED: fentaNYL 100 MCG/2 ML SDV ONE ×2 (20:44→21:21)
[2020-08-24] MEDS ORDERED: Ondansetron 4 MG/2 ML SDV ONE (20:44)
[2020-08-24] MEDS ORDERED: Lactated Ringers 1,000 ML IV SCH (20:45)
[2020-08-24] MEDS ORDERED: Lidocaine 1% 2 ML ONE (20:50)
[2020-08-24] MEDS ORDERED: Ondansetron 4 MG/2 ML SDV IVPUSH PRN (21:19)
[2020-08-24] MEDS ORDERED: fentaNYL 100 MCG/2 ML SDV IVPUSH PRN (21:19)
[2020-08-24] MEDS ORDERED: HYDROmorphone 0.5 MG/0.5 ML Syringe IVPUSH PRN (21:19)
--- NOTE | 2020-08-24 21:19 | PCM.PREANE ---
Preanesthetic Assessment - Procedure Proposed Procedure: Laparoscopic appendectomy - Anesthesia/Transfusion/Family Hx Anesthesia History: Prior Anesthesia Reaction (nausea) Other Type of Anesthesia Reaction Comment: Difficulty waking Family History of Anesthesia Reaction: No Transfusion History: No Prior Transfusion(s) Intubation History: Unknown Additional History: No difficulties with intubation per patient - Review of Systems General: No Symptoms Pulmonary: No Symptoms Cardiovascular: No Symptoms Gastrointestinal: Abdominal Pain Neurological: No Symptoms Other: Reports: None - Physical Assessment NPO Status Date: 08/24/20 NPO Status Time: 14:30 (3 bites of a cheeseburger) Vital Signs: Last Vital Signs Temp 36.7 C 08/24/20 15:35 Pulse 60 08/24/20 18:40 Resp 18 08/24/20 18:40 BP 117/65 08/24/20 15:35 Pulse Ox 98 08/24/20 18:40 Height: 5 ft 4 in Weight: 88.904 kg ASA Class: 2E Mental Status: Alert & Oriented x3 Airway Class: Mallampati = 2 Dentition: Reports: Normal Dentition Thyro-Mental Finger Breadths: 3 Mouth Opening Finger Breadths: 3 ROM/Head Extension: Full Lungs: Clear to Auscultation, Normal Respiratory Effort Cardiovascular: Regular Rate, Regular Rhythm - Lab Values: Laboratory Last Values WBC 11.08 K/mm3 (3.98-10.04) H 08/24/20 16:10 RBC 4.71 M/mm3 (3.98-5.22) 08/24/20 16:10 Hgb 13.1 gm/dl (11.2-15.7) 08/24/20 16:10 Hct 41.2 % (34.1-44.9) 08/24/20 16:10 MCV 87.5 fl (79.4-94.8) 08/24/20 16:10 MCH 27.8 pg (25.6-32.2) 08/24/20 16:10 MCHC 31.8 g/dl (32.2-35.5) L 08/24/20 16:10 RDW Std Deviation 51.1 fL (36.4-46.3) H 08/24/20 16:10 Plt Count 181 K/mm3 (182-369) L 08/24/20 16:10 MPV 11.5 fl (9.4-12.3) 08/24/20 16:10 Neut % (Auto) 69.8 % (34.0-71.1) 08/24/20 16:10 Lymph % (Auto) 19.5 % (19.3-51.7) 08/24/20 16:10 Bryan % (Auto) 8.8 % (4.7-12.5) 08/24/20 16:10 Eos % (Auto) 1.3 (0.7-5.8) 08/24/20 16:10 Baso % (Auto) 0.3 % (0.1-1.2) 08/24/20 16:10 Neut # (Auto) 7.74 K/mm3 (1.56-6.13) H 08/24/20 16:10 Lymph # (Auto) 2.16 K/mm3 (1.18-3.74) 08/24/20 16:10 Bryan # (Auto) 0.98 K/mm3 (0.24-0.36) H 08/24/20 16:10 Eos # (Auto) 0.14 K/mm3 (0.04-0.36) 08/24/20 16:10 Baso # (Auto) 0.03 K/mm3 (0.01-0.08) 08/24/20 16:10 C-Reactive Protein 2.4 mg/dL (<1.0) H* 08/24/20 16:10 SARS CoV-2 RNA Rapid JOSEF Negative (NEGATIVE) 08/24/20 20:08 - Allergies Allergies/Adverse Reactions: Allergies Allergy/AdvReac Type Severity Reaction Status Date / Time latex Allergy Severe Rash Verified 08/24/20 15:28 peanut Allergy Severe Anaphylactic Verified 08/24/20 15:28 Shock Penicillins Allergy Severe Anaphylactic Verified 08/24/20 15:28 Shock shellfish derived Allergy Severe Anaphylactic Verified 08/24/20 15:28 Shock - Anesthesia Plan Pre-Op Medication Ordered: Other (scopalamine patch places behind right ear in ER) - Acknowledgements Anesthesia Type Planned: General Anesthesia Pt an Appropriate Candidate for the Planned Anesthesia: Yes Alternatives and Risks of Anesthesia Discussed w Pt/Guardian: Yes Pt/Guardian Understands and Agrees with Anesthesia Plan: Yes PreAnesthesia Questionnaire - Past Health History Medical/Surgical History: Denies Medical/Surgical History Cardiovascular History: Reports: None Respiratory History: Reports: None Gastrointestinal History: Reports: GERD, Other (See Below) Other Gastrointestinal History: Nausea Genitourinary History: Reports: UTI, Recurrent Other Genitourinary History: breast pain, burning with urination, dysuria [employer] History: Reports: Endometriosis, , Spontaneous (x1) Other OB/BYN History: AMENORRHEA, DERMOID CYST OF OVARY, GBS+ Musculoskeletal History: Reports: Other (See Below) Other Musculoskeletal History: body aches, right ankle sprain Neurological History: Reports: Headaches, Chronic Other Neuro History: DIZZINESS, SYNCOPE Psychiatric History: Reports: Anxiety, Depression Other Psychiatric History: off medication since being . went off meds 9 weeks ago Endocrine/Metabolic History: Reports: Obesity/BMI 30+ Hematologic History: Reports: Anemia, Iron Deficiency Immunologic History: Reports: None Oncologic (Cancer) History: Reports: None Dermatologic History: Reports: None - Infectious Disease History Infectious Disease History: Reports: Chicken Pox, Mononucleosis - Past Surgical History HEENT Surgical History: Reports: Oral Surgery Other HEENT Surgeries/Procedures: wisdom teeth removal Female Surgical History: Reports: D&C - SUBSTANCE USE Tobacco Use Status *Q: Former Tobacco User Recreational Drug Use History: No - HOME MEDS Home Medications: Home Meds No122/Iron/Folic Acid [ Multi Tablet] 1 each PO DAILY 09/24/19 [History] Acetaminophen/Butalbital/Caff [Fioricet 325-50-40 MG] 1 tab PO ASDIRECTED 07/21/20 [History] Albuterol [Proventil HFA] 2 puff IH Q4HR PRN 07/21/20 [History] Dyclegis. 1 tab PO ASDIRECTED 07/21/20 [History] Escitalopram Oxalate [Lexapro] 20 mg PO DAILY 07/21/20 [History] Ondansetron [Zofran ODT] 4 mg BUCCAL Q6H PRN 07/21/20 [History] Nitrofurantoin Monohyd/M-Cryst [Macrobid 100 mg Capsule] 100 mg PO BID 08/24/20 [History] - CURRENT (IN HOUSE) MEDS Current Meds: Current Medications Lactated Ringer's (Ringers, Lactated) 1,000 mls @ 100 mls/hr IV ASDIRECTED PASQUALE Last Admin: 08/24/20 20:39 Dose: 100 mls/hr Documented by: Sodium Chloride (Saline Flush) 10 ml FLUSH ASDIRECTED PRN PRN Reason: Keep Vein Open Last Admin: 08/24/20 17:00 Dose: 10 ml Documented by: Discontinued Medications Bupivacaine HCl/Epinephrine Bitart (Marcaine 0.5%/Epinephrine 1:200,000) Confirm Administered Dose 50 ml .ROUTE .STK-MED ONE Stop: 08/24/20 20:25 Fentanyl (Sublimaze) Confirm Administered Dose 100 mcg .ROUTE .STK-MED ONE Stop: 08/24/20 20:45 Hydromorphone HCl (Dilaudid) 0.5 mg IVPUSH ONETIME ONE Stop: 08/24/20 16:08 Last Admin: 08/24/20 17:00 Dose: 0.25 mg Documented by: Sodium Chloride (Normal Saline) 1,000 mls @ 500 mls/hr IV ONETIME ONE Stop: 08/24/20 18:05 Last Admin: 08/24/20 17:01 Dose: 500 mls/hr Documented by: Levofloxacin/Dextrose 500 mg/ (Premix) 100 mls @ 100 mls/hr IV ONETIME ONE Stop: 08/24/20 21:00 Last Admin: 08/24/20 20:39 Dose: 100 mls/hr Documented by: Metronidazole 500 mg/ Premix 100 mls @ 100 mls/hr IV ONETIME ONE Stop: 08/24/20 21:02 Lidocaine HCl (Xylocaine-Mpf 1%) Confirm Administered Dose 2 mls @ as directed .ROUTE .STK-MED ONE Stop: 08/24/20 20:51 Ondansetron HCl (Zofran) 4 mg IVPUSH ONETIME ONE Stop: 08/24/20 16:07 Last Admin: 08/24/20 17:00 Dose: 4 mg Documented by: Ondansetron HCl (Zofran) Confirm Administered Dose 4 mg .ROUTE .STK-MED ONE Stop: 08/24/20 20:45 Propofol (Diprivan 20 Ml) Confirm Administered Dose 400 mg .ROUTE .STK-MED ONE Stop: 08/24/20 20:44 Rocuronium [place] (Zemuron) Confirm Administered Dose 50 mg .ROUTE .STK-MED ONE Stop: 08/24/20 20:44 Scopolamine (Transderm-Scop) 1.5 mg TOP ONETIME ONE Stop: 08/24/20 20:25 Last Admin: 08/24/20 20:33 Dose: 1.5 mg Documented by:
[2020-08-24] MEDS ORDERED: Acetaminophen 325 MG Tab PO ONE (21:47)
--- NOTE | 2020-08-24 21:52 | PCM.PRNOTE ---
- Free Text/Narrative Note: Operative Report Operation: laparoscopic appendectomy Date: 08/24/2020 Attending Surgeon: Ant Crane MD Indication for Surgery: right lower quadrant pain, nausea/vomiting, anorexia in patient 21 weeks with allergy to shellfish/iodine Preoperative antibiotics: levofloxacin and metronidazole VTE prophylaxis: SCDs Estimated Blood Loss: 5 cc Findings: normal appendix Detailed Report: The patient underwent general endotracheal anesthesia after being placed supine on the operating table. Time out was performed, confirming the patients identity and the operation to be performed. The left arm was tucked at the patients side. The abdomen was prepped and draped in sterile fashion. A Veress needle was inserted into the abdominal cavity below the left costal margin along the mid-clavicular line. The abdomen was insufflated with CO2 to 12 mm Hg. Gas was aspirated superior to the umbilicus with a syringe in order to ensure safe placement of a 5 mm bladed laparoscopic port. The 5mm 30 degree laparoscope was then inserted and viscera inspected. An additional 5 mm port was placed under direct vision with the laparoscope at the right lower quadrant. A 12 mm port was placed between the umbilicus and xiphoid. The appendix was identified coming off the cecum in the right upper quadrant; the colon had been displaced by the gravid uterus. It appeared to be normal. The [place] Ligasure was used to create a window in the mesoappendix where the appendix was seen coming off the cecum. A 35 mm powered laparoscopic stapler with white cartridge was used to divide the appendix flush with the base of the cecum. The mesoappendix was divided using the Ligasure. The specimen was then placed in an Endocatch bag and removed through the umbilical port. The dissection field appeared hemostatic. The larger port site was closed at the level of the fascia with vicryl suture using the PMI laparoscopic suture passer. Pneumoperitoneum was then released. All skin incisions were then closed with placement of subcuticular vicryl suture and dressed with dermabond. A total of 15 cc 0.5 % marcaine with epinephrine was used for local anesthesia at the incision sites. The patient tolerated the operation well, was extubated in the operating room and transferred to the PACU for routine post-anesthesia care and assessment of heart tones.
--- NOTE | 2020-08-24 22:06 | PCM48HPAN ---
Post Anesthesia Note - EVALUATION WITHIN 48HRS OF ANESTHETIC Vital Signs in Normal Range: Yes Patient Participated in Evaluation: Yes Respiratory Function Stable: Yes Airway Patent: Yes Cardiovascular Function Stable: Yes Hydration Status Stable: Yes Pain Control Satisfactory: Yes Nausea and Vomiting Control Satisfactory: Yes Mental Status Recovered: Yes Vital Signs: Last Vital Signs Temp 36.7 C 08/24/20 21:37 Pulse 102 H 08/24/20 21:37 Resp 17 08/24/20 22:00 BP 121/77 08/24/20 22:00 Pulse Ox 97 08/24/20 22:00 - COMMENTS/OBSERVATIONS Free Text/Narrative:: Patient free to go home when nursing cares are completed.
[2020-08-24] MEDS ORDERED: oxyCODONE 5 MG Tab PO ONE (22:20)
--- NOTE | 2020-08-26 10:12 | US ---
PROCEDURE INFORMATION: Exam: US Abdomen, Limited; Appendix Exam date and time: 08/24/2020 5:26 PM Age: 19 years old Clinical indication: Abdominal pain; Localized; Right lower quadrant (rlq); TECHNIQUE: Imaging protocol: US abdomen. Real time ultrasound with image documentation. Limited exam focused on the appendix. COMPARISON: US Abdomen Ltd 07/21/2020 2:39 PM FINDINGS: Appendix: The appendix is not identified. No fluid collections. No masses. No visualized abnormality. IMPRESSION: No visualized abnormality. The appendix itself is not identified. If symptoms and suspicion for acute appendicitis persists, consider CT. Thank you for allowing us to participate in the care of your patient. Dictated and Authenticated by: Barber Sierra MD 08/24/2020 7:22 PM Central Time ([place] & [place]) MARA
== END 2020-08-24 23:11 | disposition home or self-care (01) ==
LOC: JD.ED 15:09 → JD.SDS 20:00
PROVIDERS: ATTEND Surgery
DX: R10.31 Right lower quadrant pain (principal); G89.29 Other chronic pain; F41.9 Anxiety disorder, unspecified; F32.9 Major depressive disorder, single episode, unspecified; Z3A.21 21 weeks gestation of pregnancy; Z91.010 Allergy to peanuts; Z91.040 Latex allergy status; Z88.0 Allergy status to penicillin; Z91.013 Allergy to seafood; Z79.899 Other long term (current) drug therapy; Z87.891 Personal history of nicotine dependence; Z01.812 Encounter for preprocedural laboratory examination; Z20.828 Contact with and (suspected) exposure to other viral communicable diseases
CPT/HCPCS: 36415; 44970; 76705; 85025; 86140; 87635; 96374; 96375; 99285; A9270; J1170; J1956; J2001; J2405; J2704; J3010; J3490; J7030; J7120; 00840; J0330; U0002

== ENCOUNTER 2020-12-18 17:01 | Inpatient (IN) | payer MEDICAID ==
[2020-12-18] MEDS ORDERED: Sodium Chloride 0.9% 10 ML Syringe FLUSH PRN (22:28)
[2020-12-18] MEDS ORDERED: Nalbuphine 10 MG/1 ML Vial IVPUSH PRN (22:28)
[2020-12-18] MEDS ORDERED: Oxytocin/Lactated Ringers 10 UNIT/1,000 ML BAG IV SCH (22:30)
--- NOTE | 2020-12-18 22:40 | PCM.LDHP ---
L&D History of Present Illness - General Date of Service: 12/18/20 Admit Problem/Dx: Patient Status Order with Admit Dx/Problem 12/18/20 17:29 Patient Status [ADT] Routine Admission Diagnosis/Problem Admission Diagnosis/Problem - History of Present Illness Introduction:: 19 year old at 38w3 here with painful contractions. Cervix in clinic was 3 cm. Was 3 cm initially here but on reexamination after 4 hours was 4.[address] Bravo complicated by rh negative, anxiety and depression, history of macrosomic babies. - Related Data Allergies/Adverse Reactions: Allergies Allergy/AdvReac Type Severity Reaction Status Date / Time latex Allergy Severe Shortness Verified 11/24/20 22:37 of Breath peanut Allergy Severe Anaphylactic Verified 11/24/20 22:37 Shock Penicillins Allergy Severe Anaphylactic Verified 11/24/20 22:37 Shock shellfish derived Allergy Severe Anaphylactic Verified 11/24/20 22:37 Shock Home Medications: Home Meds No122/Iron/Folic Acid [ Multi Tablet] 1 each PO DAILY 09/24/19 [History] Albuterol [Proventil HFA] 2 puff IH Q4HR PRN 07/21/20 [History] Ondansetron [Zofran ODT] 4 mg BUCCAL Q6H PRN 07/21/20 [History] Doxylamine Succinate/Vit B6 [Doxylamine-Pyridoxine 10-10 mg] 1 tab PO TID 10/29/20 [History] Ferrous Sulfate 325 mg PO DAILY 10/29/20 [History] Acetaminophen/Codeine [Tylenol with Codeine No.3 300MG/30MG] 1 - 2 tab PO Q4H PRN 11/24/20 [History] Past Medical History - Past Health History Medical/Surgical History: Denies Medical/Surgical History Cardiovascular History: Reports: None Respiratory History: Reports: None Gastrointestinal History: Reports: GERD, Other (See Below) Other Gastrointestinal History: Nausea Genitourinary History: Reports: UTI, Recurrent Other Genitourinary History: breast pain, burning with urination, dysuria SERVICES MGR History: Reports: Endometriosis, , Spontaneous (x1) Other OB/BYN History: AMENORRHEA, DERMOID CYST OF OVARY, GBS+ Musculoskeletal History: Reports: Other (See Below) Other Musculoskeletal History: body aches, right ankle sprain Neurological History: Reports: Headaches, Chronic Other Neuro History: DIZZINESS, SYNCOPE Psychiatric History: Reports: Anxiety, Depression Other Psychiatric History: off medication since being . went off meds 9 weeks ago Endocrine/Metabolic History: Reports: Obesity/BMI 30+ Hematologic History: Reports: Anemia, Iron Deficiency Immunologic History: Reports: None Oncologic (Cancer) History: Reports: None Dermatologic History: Reports: None - Infectious Disease History Infectious Disease History: Reports: Chicken Pox, Mononucleosis - Past Surgical History HEENT Surgical History: Reports: Oral Surgery Other HEENT Surgeries/Procedures: wisdom teeth removal Female Surgical History: Reports: D&C Social & Family History - Family History Family Medical History: No Pertinent Family History Cardiac: Reports: IA Respiratory: Reports: Asthma, COPD Neurological: Reports: CVA Psychiatric: Reports: Bipolar Oncologic: Reports: Bladder, Breast, Lung - Caffeine Use Caffeine Use: Reports: Tea - Living Situation & Occupation Living situation: Reports: Single, with Significant Other (Boyfriend), with Family ( ) Occupation: Unemployed H&P Review of Systems - Review of Systems: Review Of Systems: See Below General: Reports: No Symptoms HEENT: Reports: No Symptoms Pulmonary: Reports: No Symptoms Cardiovascular: Reports: No Symptoms Gastrointestinal: Reports: No Symptoms Genitourinary: Reports: No Symptoms Musculoskeletal: Reports: No Symptoms Skin: Reports: No Symptoms Psychiatric: Reports: No Symptoms Neurological: Reports: No Symptoms Hematologic/Lymphatic: Reports: No Symptoms Immunologic: Reports: No Symptoms L&D Exam - Exam Exam: See Below - Vital Signs Vital Signs: Last Vital Signs Temp 36.3 C 12/18/20 17:13 Pulse 87 12/18/20 17:13 Resp 14 12/18/20 17:13 BP 118/83 12/18/20 17:13 Pulse Ox 100 12/18/20 17:13 Weight: 97.069 kg - OB Specific Contraction Intensity: Moderate Movement: Active Heart Tones: Present Heart Rate (FHR) Variability: Moderate (6-25 bmp) Presentation: Vertex - Rees Score Rees Score Cervix Position: Midposition Rees Score Consistency: Soft Rees Score Effacement: 51-70% Rees Score Dilation: > 5 cm Rees Score 's Station: -2 Rees Score Total: 9 - Exam General: Alert, Oriented HEENT: PERRLA, Conjunctiva Clear, EACs Clear, EOMI, Hearing Intact, Mucosa Moist & [place], Nares Patent, Normal Nasal Septum, Posterior Pharynx Clear, TMs Clear Neck: Supple, Trachea Midline Lungs: Clear to Auscultation, Normal Respiratory Effort Cardiovascular: Regular Rate, Regular Rhythm GI/Abdominal Exam: Normal Bowel Sounds, Soft, Non-Tender, No Organomegaly, No Distention, No Abnormal Bruit, No Mass, Pelvis Stable Rectal Exam: Normal Exam Back Exam: Normal Inspection, Full Range of Motion Extremities: Normal Inspection, Normal Range of Motion, Non-Tender, No Pedal Edema, Normal Capillary Refill Skin: Warm, Dry, Intact Neurological: Cranial Nerves Intact, Reflexes Equal Bilateral Psychiatric: Alert, Normal Affect, Normal Mood Problem List Initiated/Reviewed/Updated: Yes Orders Last 24hrs: Active Orders 24 hr Category Date Time Status Patient Status [ADT] Routine ADT 12/18/20 17:29 Active Activity as Tolerated [RC] PFP Care 12/18/20 22:29 Active Communication Order [RC] ASDIRECTED Care 12/18/20 22:29 Active Heart Tones [RC] ASDIRECTED Care 12/18/20 22:31 Active Non Stress Test [RC] PER UNIT ROUTINE Care 12/18/20 22:29 Active Notify Provider [RC] PFP Care 12/18/20 22:29 Active Notify Provider [RC] PRN Care 12/18/20 22:29 Active Peripheral IV Care [RC] . DIRECTED Care 12/18/20 22:31 Active Ready for Discharge [RC] PER UNIT ROUTINE Care 12/18/20 17:45 Active Vital Signs [RC] PER UNIT ROUTINE Care 12/18/20 17:29 Active Vital Signs [RC] PER UNIT ROUTINE Care 12/18/20 22:29 Active CBC W/O DIFF,HEMOGRAM [HEME] Stat Lab 12/18/20 22:28 Ordered RAPID PLASMA REAGIN,RPR [CHEM] Routine Lab 12/18/20 22:29 Ordered Lactated Ringers [Ringers, Lactated] 1,000 ml Med 12/18/20 22:30 Ordered IV ASDIRECTED Nalbuphine [Nubain] Med 12/18/20 22:28 Ordered 10 mg IVPUSH Q2H PRN Oxytocin/Lactated Ringers [Pitocin in LR 10 Units/1,000 Med 12/18/20 22:30 Or dered ML] 10 unit in 1,000 ml IV .CONTINUOUS Sodium Chloride 0.9% [Saline Flush] Med 12/18/20 22:28 Ordered 10 ml FLUSH ASDIRECTED PRN Electronic Heart Tones Ext w TOCO [WOMSER] Oth 12/18/20 22:29 Ordered Routine Electronic Heart Tones Internal [WOMSER] Per Unit Oth 12/18/20 22:29 Ordered Routine Peripheral IV Insertion Adult [OM.PC] Routine Oth 12/18/20 22:29 Ordered Resuscitation Status Routine Resus Stat 12/18/20 17:29 Ordered Medication Orders Lactated Ringer's (Ringers, Lactated) 1,000 mls @ 100 mls/hr IV ASDIRECTED PASQUALE Oxytocin/Lactated Ringer's (Pitocin In Lr 10 Units/1,000 Ml) 10 unit in 1,000 mls @ 100 mls/hr IV .CONTINUOUS PASQUALE Nalbuphine HCl (Nubain) 10 mg IVPUSH Q2H PRN PRN Reason: Pain Sodium Chloride (Saline Flush) 10 ml FLUSH ASDIRECTED PRN PRN Reason: Keep Vein Open Assessment/Plan Comment:: 19 year old at 38w4 here in labor.
[2020-12-19] MEDS ORDERED: Ondansetron 4 MG/2 ML SDV IVPUSH ONE (00:12)
[2020-12-19] MEDS: Lactated Ringers 1,000 ML IV SCH ×2 (00:34→05:27)
[2020-12-19] MEDS ORDERED: Lidocaine 1% 50 ML MDV ONE (01:57)
--- NOTE | 2020-12-19 04:04 | PCM.DEL ---
L & D Note - General Info Date of Service: 12/19/20 - Delivery Note Labor: Augmented by ARM Delivery Outcome: Livebirth Presentation: Vertex Episiotomy Type: None Laceration: None Placenta: Intact, Spontaneous Cord: 3 Vessels Resuscitation Needed: No Score 1 min: 8 Score 5 min: 9 - General Info Date of Service: 12/19/20 Functional Status: Reports: Pain Controlled - Review of Systems General: Reports: No Symptoms HEENT: Reports: No Symptoms Pulmonary: Reports: No Symptoms Cardiovascular: Reports: No Symptoms Gastrointestinal: Reports: No Symptoms Genitourinary: Reports: No Symptoms Musculoskeletal: Reports: No Symptoms Skin: Reports: No Symptoms Neurological: Reports: No Symptoms Psychiatric: Reports: No Symptoms - Patient Data Vitals - Most Recent: Last Vital Signs Temp 36.6 C 12/18/20 19:30 Pulse 82 12/18/20 19:30 Resp 14 12/18/20 19:30 BP 119/65 12/18/20 19:30 Pulse Ox 100 12/18/20 19:30 Weight - Most Recent: 97.069 kg Lab Results Last 24 Hours: Laboratory Results - last 24 hr 12/18/20 12/18/20 Range/Units 22:44 22:45 WBC 15.73 H (3.98-10.04) K/mm3 RBC 3.56 L (3.98-5.22) M/mm3 Hgb 9.1 L (11.2-15.7) gm/dl Hct 29.6 L (34.1-44.9) % MCV 83.1 (79.4-94.8) fl MCH 25.6 (25.6-32.2) pg MCHC 30.7 L (32.2-35.5) g/dl RDW Std Deviation 44.8 (36.4-46.3) fL Plt Count 252 D (182-369) K/mm3 MPV 11.0 (9.4-12.3) fl SARS-CoV-2 RNA (JOSEF) Negative (NEGATIVE) Med Orders - Current: Current Medications Lactated Ringer's (Ringers, Lactated) 1,000 mls @ 100 mls/hr IV ASDIRECTED PASQUALE Last Admin: 12/19/20 00:34 Dose: 100 mls/hr Documented by: Oxytocin/Lactated Ringer's (Pitocin In Lr 10 Units/1,000 Ml) 10 unit in 1,000 mls @ 100 mls/hr IV .CONTINUOUS PASQUALE Nalbuphine HCl (Nubain) 10 mg IVPUSH Q2H PRN PRN Reason: Pain Last Admin: 12/19/20 01:04 Dose: 10 mg Documented by: Sodium Chloride (Saline Flush) 10 ml FLUSH ASDIRECTED PRN PRN Reason: Keep Vein Open Discontinued Medications Lidocaine HCl (Xylocaine 1%) Confirm Administered Dose 50 ml .ROUTE .STK-MED ONE Stop: 12/19/20 01:58 Ondansetron HCl (Zofran) 4 mg IVPUSH ONETIME ONE Stop: 12/19/20 00:13 Last Admin: 12/19/20 00:38 Dose: 4 mg Documented by: - Exam General: Alert, Oriented HEENT: Pupils Equal, Pupils Reactive, EOMI, Mucous Membr. Moist/[place] Neck: Supple Lungs: Clear to Auscultation, Normal Respiratory Effort Cardiovascular: Regular Rate, Regular Rhythm GI/Abdominal Exam: Normal Bowel Sounds, Soft Back Exam: Normal Inspection, Full Range of Motion Extremities: Normal Inspection, Normal Range of Motion, Non-Tender, No Pedal Edema, Normal Capillary Refill Skin: Warm, Dry, Intact Wound/Incisions: Healing Well Neurological: No New Focal Deficit Psy/Mental Status: Alert, Normal Affect, Normal Mood - Problem List Review Problem List Initiated/Reviewed/Updated: Yes - My Orders Last 24 Hours: My Active Orders 12/18/20 17:29 Patient Status [ADT] Routine Resuscitation Status Routine 12/18/20 22:28 Nalbuphine [Nubain] 10 mg IVPUSH Q2H PRN Sodium Chloride 0.9% [Saline Flush] 10 ml FLUSH ASDIRECTED PRN 12/18/20 22:29 Activity as Tolerated [RC] PFP Communication Order [RC] ASDIRECTED Notify Provider [RC] PFP Notify Provider [RC] PRN Vital Signs [RC] PER UNIT ROUTINE Electronic Heart Tones Ext w TOCO [WOMSER] Routine Electronic Heart Tones Internal [WOMSER] Per Unit Routine Peripheral IV Insertion Adult [OM.PC] Routine 12/18/20 22:30 Lactated Ringers [Ringers, Lactated] 1,000 ml IV ASDIRECTED Oxytocin/Lactated Ringers [Pitocin in LR 10 Units/1,000 ML] 10 unit in 1,000 ml IV .CONTINUOUS 12/18/20 22:31 Heart Tones [RC] ASDIRECTED Peripheral IV Care [RC] . DIRECTED 12/18/20 22:44 RAPID PLASMA REAGIN,RPR [CHEM] Routine - Plan Plan:: Stage I - Patient presented in active labor. Augmented with AROM. Progressed to complete with overall reassuring heart tones. Stage II - Head delivered in in controlled manner over intact perineum. Body and shoulders followed atraumatically. Mild shoulder dystocia resolved with Chay. placed on maternal abdomen. Cord clamped and cut. Positive cr y. Baby to warmer. Stage III - of intact placenta. Inspected. 3vc. No perineal lacerations. EBL 300.
[2020-12-19] MEDS ORDERED: Docusate Sodium 100 MG Cap PO PRN (05:09)
[2020-12-19] MEDS ORDERED: Witch Hazel Medicated Pads 40/Jar TOP PRN (05:09)
[2020-12-19] MEDS ORDERED: Benzocaine/Menthol 20%-0.5% Spray 56 GM Canister TOP PRN (05:09)
[2020-12-19] MEDS: Ibuprofen 600 MG Tab PO PRN ×3 (05:26→18:41)
[2020-12-19] MEDS ORDERED: Ondansetron 4 MG Tab.DIS PO PRN (13:48)
[2020-12-19] MEDS: Acetaminophen 325 MG Tab PO PRN ×2 (13:56→21:28)
[2020-12-20] MEDS: Ibuprofen 600 MG Tab PO PRN (02:03)
--- NOTE | 2020-12-20 08:56 | PCM.DCSUM1 ---
Discharge Summary - Hospital Course Free Text/Narrative:: Candice is a 19-year-old multiparous female admitted on 12/18/2020 in active labor. She progressed to complete cervical dilation and delivered spontaneously. Stage I - Patient presented in active labor. Augmented with AROM. Progressed to complete with overall reassuring heart tones. Stage II - Head delivered in in controlled manner over intact perineum. Body and shoulders followed atraumatically. Mild shoulder dystocia resolved with Chay. placed on maternal abdomen. Cord clamped and cut. Positive cry. Baby to warmer. Apgars were 8 and 9. Stage III - of intact placenta. Inspected. 3vc. No perineal lacerations. EBL 300. patient is done well. She is ambulating well, has minimal lochia, is nursing without problems. She is voiding without concern. She is desiring discharge home. - Discharge Data Discharge Date: 12/20/20 Discharge Disposition: Home, Self-Care 01 Condition: Good - Referral to Home Health Primary Care Physician: Giovanna Osborne NP - Patient Instructions Diet: Regular Diet as Tolerated (Nursing diet with increased calories and calcium as directed.) Activity: As Tolerated (No intercourse or tampons until bleeding resolves) Driving: May Drive Today Showering/Bathing: May Shower Notify Provider of: Fever, Increased Pain, Swelling and Redness, Nausea and/or Vomiting - Discharge Plan Home Medications: Home Meds No122/Iron/Folic Acid [ Multi Tablet] 1 each PO DAILY 09/24/19 [History] Albuterol [Proventil HFA] 2 puff IH Q4HR PRN 07/21/20 [History] Ferrous Sulfate 325 mg PO DAILY 10/29/20 [History] Acetaminophen [Tylenol] 650 mg PO Q4H PRN tablet 12/20/20 [Rx] Ibuprofen [Motrin] 600 mg PO Q6H PRN tablet 12/20/20 [Rx] Referrals: Cresencio Bravo MD [Physician] - ([facility] - Discharge Summary/Plan Comment DC Time >30 min.: No Discharge Summary/Plan Comment: Discharge instructions: 1. Discharge home 2. Diet, activity and follow-up discussed with patient. Recommend nursing diet with increased calories and calcium. 3. Precautions given concern increased pain, bleeding, temperature, signs/symptoms of DVT/PE. 4. Medications per home medication was printed, discussed with and given to the patient. 5. Return to clinic-Dr. Bravo[facility] in 2 weeks. Diagnosis: Term -delivered Condition: Good - Patient Data Vitals - Most Recent: Last Vital Signs Temp 36.7 C 12/20/20 02:06 Pulse 63 12/20/20 02:06 Resp 14 12/20/20 02:06 BP 120/99 H 12/20/20 02:06 Pulse Ox 98 12/20/20 02:06 Weight - Most Recent: 97.069 kg I&O - Last 24 hours: Intake & Output 12/19/20 12/20/20 12/20/20 22:59 06:59 14:59 Intake Total 360 Balance 360 Lab Results - Last 24 hrs: Laboratory Results - last 24 hr 12/18/20 Range/Units 22:44 RPR Non-reactive (NONREACTIVE) Med Orders - Current: Current Medications Acetaminophen (Tylenol) 650 mg PO Q4H PRN PRN Reason: mild pain or fever Last Admin: 12/19/20 21:28 Dose: 650 mg Documented by: Benzocaine/Menthol (Dermoplast Pain Relief [place]) 0 gm TOP ASDIRECTED PRN PRN Reason: Perineal Comfort Measure Last Admin: 12/19/20 05:25 Dose: 1 canister Documented by: Docusate Sodium (Colace) 100 mg PO BID PRN PRN Reason: Constipation Ibuprofen (Motrin) 600 mg PO Q6H PRN PRN Reason: Mild pain or fever Last Admin: 12/20/20 02:03 Dose: 600 mg Documented by: Ondansetron HCl (Zofran Odt) 4 mg PO Q4H PRN PRN Reason: Nausea/Vomiting Last Admin: 12/19/20 13:56 Dose: 4 mg Documented by: [facility] 1 pad TOP ASDIRECTED PRN PRN Reason: Pain Last Admin: 12/19/20 05:25 Dose: 1 tub Documented by: Discontinued Medications Lactated Ringer's (Ringers, Lactated) 1,000 mls @ 100 mls/hr IV ASDIRECTED PASQUALE Last Admin: 12/19/20 05:27 Dose: 100 mls/hr Documented by: Oxytocin/Lactated Ringer's (Pitocin In Lr 10 Units/1,000 Ml) 10 unit in 1,000 mls @ 100 mls/hr IV .CONTINUOUS PASQUALE Last Admin: 12/19/20 05:28 Dose: 100 mls/hr Documented by: Lidocaine HCl (Xylocaine 1%) Confirm Administered Dose 50 ml .ROUTE .STK-MED ONE Stop: 12/19/20 01:58 Nalbuphine HCl (Nubain) 10 mg IVPUSH Q2H PRN PRN Reason: Pain Last Admin: 12/19/20 01:04 Dose: 10 mg Documented by: Ondansetron HCl (Zofran) 4 mg IVPUSH ONETIME ONE Stop: 12/19/20 00:13 Last Admin: 12/19/20 00:38 Dose: 4 mg Documented by: Sodium Chloride (Saline Flush) 10 ml FLUSH ASDIRECTED PRN PRN Reason: Keep Vein Open
== END 2020-12-20 10:10 | disposition home or self-care (01) | DRG 807 ==
LOC: JD.OBCHECK 17:01 → JD.OB 17:05 → JD.OBCHECK 12-19 03:56
PROVIDERS: ADMIT Obstetrics & Gynecology; ATTEND Obstetrics & Gynecology
PROC: 10E0XZZ Delivery of Products of Conception, External Approach (ICD-10-PCS; principal; 2020-12-19)
PROC: 10907ZC Drainage of Amniotic Fluid, Therapeutic from Products of Conception, Via Natural or Artificial Opening (ICD-10-PCS; 2020-12-19)
DX: O99.02 Anemia complicating childbirth (principal); Z37.0 Single live birth; O99.62 Diseases of the digestive system complicating childbirth; K21.9 Gastro-esophageal reflux disease without esophagitis; D64.9 Anemia, unspecified; O99.214 Obesity complicating childbirth; E66.9 Obesity, unspecified; O66.0 Obstructed labor due to shoulder dystocia; Z20.822 Contact with and (suspected) exposure to COVID-19; Z79.899 Other long term (current) drug therapy; Z88.0 Allergy status to penicillin; Z91.013 Allergy to seafood; Z3A.38 38 weeks gestation of pregnancy
CPT/HCPCS: 36415; 59025; 59409; 85027; 86592; A9270-GY; J2300; J2405; J2590; J7120; U0002

== ENCOUNTER 2021-04-27 11:02 | Emergency (ER) | payer MEDICAID ==
[2021-04-27] MEDS ORDERED: Sodium Chloride 0.9% 10 ML Syringe FLUSH PRN (11:21)
--- NOTE | 2021-04-27 11:28 | EDM.PDOC ---
ED HPI GENERAL MEDICAL PROBLEM - General Chief Complaint: FLIGHT DISPATCHER Problem Stated Complaint: 8 WEEKS PREG AND BLEEDING Time Seen by Provider: 04/27/21 11:11 Source of Information: Reports: Patient, RN Notes Reviewed History Limitations: Reports: No Limitations - History of Present Illness INITIAL COMMENTS - FREE TEXT/NARRATIVE: Patient is a 20-year-old female who presents to the ER for her vaginal bleeding and . Notes she is about 7 weeks 3 days along, FLIGHT DISPATCHER is Dr. Bravo, she is a A2, she has had 2 spontaneous miscarriages in the past. Patient notes when she woke up this morning, she went to the bathroom and when she wiped she noticed some blood on the tissue with some clot-like material. She states it was not enough to soak through a pad but it was enough to concern her. She called the OB department and they told her to come to the ER if she had any sort of vaginal bleeding. She is having some abdominal cramping when she is walking, but otherwise it seems to be okay. Patient denies any other sick-like symptoms, fever/chills, cough/shortness of breath, nausea/vomiting/diarrhea. Patient is known to have B- blood typing. Patient denies any urinary symptoms like dysuria, frequency or urgency. Bilateral Lower Abdomen Pain Score (Numeric/FACES): 2 - Related Data Allergies Allergy/AdvReac Type Severity Reaction Status Date / Time latex Allergy Severe Shortness Verified 04/27/21 11:13 of Breath peanut Allergy Severe Anaphylactic Verified 04/27/21 11:13 Shock Penicillins Allergy Severe Anaphylactic Verified 04/27/21 11:13 Shock shellfish derived Allergy Severe Anaphylactic Verified 04/27/21 11:13 Shock Home Meds: Home Meds No122/Iron/Folic Acid [ Multi Tablet] 1 each PO DAILY 09/24/19 [History] Albuterol [Proventil HFA] 2 puff IH Q4HR PRN 07/21/20 [History] Ferrous Sulfate 325 mg PO DAILY 10/29/20 [History] Acetaminophen [Tylenol] 650 mg PO Q4H PRN tablet 12/20/20 [Rx] Ibuprofen [Motrin] 600 mg PO Q6H PRN tablet 12/20/20 [Rx] Doxylamine Succinate/Vit B6 [Diclegis Dr 10-10 mg Tablet] 1 tab PO Q8HR PRN 04/27/21 [History] Doxylamine Succinate/Vit B6 [Diclegis Dr 10-10 mg Tablet] 2 tab PO DAILY 04/27/21 [History] Progesterone Suppository 04/27/21 [History] Past Medical History Respiratory History: Reports: Asthma Gastrointestinal History: Reports: GERD Genitourinary History: Reports: UTI, Recurrent Other Genitourinary History: breast pain, burning with urination, dysuria FLIGHT DISPATCHER History: Reports: Endometriosis, , Spontaneous : 6 Para: 3 (A2) Other FLIGHT DISPATCHER History: AMENORRHEA, DERMOID CYST OF OVARY, GBS+ Musculoskeletal History: Reports: Other (See Below) Other Musculoskeletal History: right ankle sprain Neurological History: Reports: Headaches, Chronic Other Neuro History: DIZZINESS, SYNCOPE Psychiatric History: Reports: Anxiety, Depression Other Psychiatric History: off medication since being Endocrine/Metabolic History: Reports: Obesity/BMI 30+ Hematologic History: Reports: Anemia - Infectious Disease History Infectious Disease History: Reports: Chicken Pox, Mononucleosis, Novel Coronavirus (10/06) - Past Surgical History HEENT Surgical History: Reports: Oral Surgery Other HEENT Surgeries/Procedures: wisdom teeth removal GI Surgical History: Reports: Appendectomy Female Surgical History: Reports: D&C Other Female Surgeries/Procedures: miscarriage Social & Family History - Family History Family Medical History: No Pertinent Family History Cardiac: Reports: ND Respiratory: Reports: Asthma, COPD Neurological: Reports: CVA Psychiatric: Reports: Bipolar Oncologic: Reports: Bladder, Breast, Lung - Tobacco Use Tobacco Use Status *Q: Never Tobacco User - Caffeine Use Caffeine Use: Reports: Tea - Recreational Drug Use Recreational Drug Use: No - Living Situation & Occupation Living situation: Reports: Single, with Significant Other (Boyfriend), with Family ( ) Occupation: Unemployed ED ROS GENERAL - Review of Systems Review Of Systems: Comprehensive ROS is negative, except as noted in HPI. ED EXAM - Physical Exam Exam: See Below Exam Limited By: No Limitations General Appearance: Alert, WD/WN, No Apparent Distress Respiratory/Chest: No Respiratory Distress, Lungs Clear, Normal Breath Sounds, No Accessory Muscle Use, Chest Non-Tender Cardiovascular: Normal Peripheral Pulses, Regular Rate, Rhythm, No Edema GI/Abdominal Exam: Normal Bowel Sounds, Soft, Non-Tender, No Distention, No Mass Heart Tones: Not [place] Movement: Not Appreciated Neurological: Alert, Oriented, Normal Cognition, No Motor/Sensory Deficits Psychiatric: Normal Affect, Normal Mood Skin Exam: Warm, Dry, Intact, Normal Color, No Rash Course - Vital Signs Last Recorded V/S: Last Vital Signs Temp 97.9 F 04/27/21 11:09 Pulse 80 04/27/21 11:09 Resp 16 04/27/21 11:09 BP 121/76 04/27/21 11:09 Pulse Ox 96 04/27/21 11:09 - Orders/Labs/Meds Orders: Active Orders 24 hr Category Date Time Status Peripheral IV Care [RC] . DIRECTED Care 04/27/21 11:22 Ordered Sodium Chloride 0.9% [Saline Flush] Med 04/27/21 11:21 Ordered 10 ml FLUSH ASDIRECTED PRN Peripheral IV Insertion Adult [OM.PC] Stat Oth 04/27/21 11:21 Ordered Medication Orders Sodium Chloride (Sodium Chloride 0.9% 10 Ml Syringe) 10 ml FLUSH ASDIRECTED PRN PRN Reason: Keep Vein Open Labs: Laboratory Tests 04/27/21 04/27/21 04/27/21 Range/Units 11:45 11:45 11:45 WBC 7.24 (3.98-10.04) K/mm3 RBC 4.50 (3.98-5.22) M/mm3 Hgb 12.1 (11.2-15.7) gm/dl Hct 37.6 (34.1-44.9) % MCV 83.6 (79.4-94.8) fl MCH 26.9 (25.6-32.2) pg MCHC 32.2 (32.2-35.5) g/dl RDW Std Deviation 41.9 (36.4-46.3) fL Plt Count 194 (182-369) K/mm3 MPV 10.8 (9.4-12.3) fl Neut % (Auto) 60.2 (34.0-71.1) % Lymph % (Auto) 28.6 (19.3-51.7) % [place] % (Auto) 9.1 (4.7-12.5) % Eos % (Auto) 1.1 (0.7-5.8) Baso % (Auto) 0.7 (0.1-1.2) % Neut # (Auto) 4.36 (1.56-6.13) K/mm3 Lymph # (Auto) 2.07 (1.18-3.74) K/mm3 [place] # (Auto) 0.66 H (0.24-0.36) K/mm3 Eos # (Auto) 0.08 (0.04-0.36) K/mm3 Baso # (Auto) 0.05 (0.01-0.08) K/mm3 HCG, Quant 667045.0 mIU/mL Urine Color (Yellow) Urine Appearance (Clear) Urine pH (5.0-8.0) Ur Specific [place] (1.005-1.030) Urine Protein (Negative) Urine Glucose (UA) (Negative) Urine Ketones (Negative) Urine Occult Blood (Negative) Urine Nitrite (Negative) Urine Bilirubin (Negative) Urine Urobilinogen (0.2-1.0) Ur Leukocyte Esterase (Negative) Urine RBC (0-5) /hpf Urine WBC (0-5) /hpf Ur Epithelial Cells (0-5) /hpf Amorphous Sediment (NOT SEEN) /hpf Urine Bacteria (FEW) /hpf Urine Mucus (FEW) /hpf Blood Type B NEGATIVE Gel Antibody Screen Cancelled Rhogam Indicated Yes 04/27/21 Range/Units 11:56 WBC (3.98-10.04) K/mm3 RBC (3.98-5.22) M/mm3 Hgb (11.2-15.7) gm/dl Hct (34.1-44.9) % MCV (79.4-94.8) fl MCH (25.6-32.2) pg MCHC (32.2-35.5) g/dl RDW Std Deviation (36.4-46.3) fL Plt Count (182-369) K/mm3 MPV (9.4-12.3) fl Neut % (Auto) (34.0-71.1) % Lymph % (Auto) (19.3-51.7) % [place] % (Auto) (4.7-12.5) % Eos % (Auto) (0.7-5.8) Baso % (Auto) (0.1-1.2) % Neut # (Auto) (1.56-6.13) K/mm3 Lymph # (Auto) (1.18-3.74) K/mm3 [place] # (Auto) (0.24-0.36) K/mm3 Eos # (Auto) (0.04-0.36) K/mm3 Baso # (Auto) (0.01-0.08) K/mm3 HCG, Quant mIU/mL Urine Color Yellow (Yellow) Urine Appearance Clear (Clear) Urine pH 6.5 (5.0-8.0) Ur Specific [place] > or = 1.030 (1.005-1.030) Urine Protein Negative (Negative) Urine Glucose (UA) Negative (Negative) Urine Ketones Negative (Negative) Urine Occult Blood Trace-intact H (Negative) Urine Nitrite Negative (Negative) Urine Bilirubin Negative (Negative) Urine Urobilinogen 0.2 (0.2-1.0) Ur Leukocyte Esterase Negative (Negative) Urine RBC 0-5 (0-5) /hpf Urine WBC 0-5 (0-5) /hpf Ur Epithelial Cells 0-5 (0-5) /hpf Amorphous Sediment Few H (NOT SEEN) /hpf Urine Bacteria Few (FEW) /hpf Urine Mucus Moderate H (FEW) /hpf Blood Type Gel Antibody Screen Rhogam Indicated Meds: Medications Generic Name Dose Route Start Last Admin Trade Name Freq PRN Reason Stop Dose Admin Sodium Chloride 10 ml 04/27/21 11:21 Sodium Chloride 0.9% 10 Ml Syringe FLUSH ASDIRECTED PRN Keep Vein Open - Re-Assessments/Exams Free Text/Narrative Re-Assessment/Exam: 04/27/21 11:27 Patient presents to the ER for the evaluation of her vaginal bleeding and , we will go ahead and repeat an ultrasound, she was found to have an intrauterine on 04/22/2021, she is B- for her blood typing. After evaluation has been complete, will consult with OB for ongoing management. 04/27/21 12:57 Laboratory evaluation demonstrates a normal hemoglobin level, urinalysis n egative for infection, patient's quantitative level was 153, 625, ultrasound did demonstrate a single intrauterine gestation at 7 weeks 4 days with a heart rate of 129 bpm there is also moderate subchorionic hemorrhage which is an interval change from her prior study on 04/22/2021. The maternal ovaries were nonvisualized. I did go over these findings with Dr. Stanley, FLIGHT DISPATCHER on-call, and he does recommend doing the rate work-up. States that if it is positive then we do not need to give RhoGam, if it is negative, then we will have to give RhoGam. Did make the patient aware of these findings and she verbalized understanding. Departure - Departure Time of Disposition: 13:34 Disposition: Home, Self-Care 01 Condition: Good Clinical Impression: Threatened - Discharge Information *PRESCRIPTION DRUG MONITORING PROGRAM REVIEWED*: No *COPY OF PRESCRIPTION DRUG MONITORING REPORT IN PATIENT AVA: No Instructions: Threatened Miscarriage, [id number] Referrals: Cresencio Bravo MD [Primary Care Provider] - Forms: ED Department Discharge Additional Instructions: You were evaluated in the ER today regarding your abdominal pain/vaginal bleeding in . You did have some labs drawn, and these were within normal limits, your hCG level was 153,625, your blood type is B-. You did receive RhoGam at today's visit. Your ultrasound demonstrated an intrauterine at gestational age of 7 weeks 4 days with a heart rate of 129 bpm. There was also a subchorionic hem orrhage which is basically a blood clot within the uterus, that is the likely source of the bleeding that you were experiencing at today's visit. Recommend that you do not lift anything heavier than a gallon of milk (5 lbs), do not engage in sexual activities, try to get as much pelvic rest as possible for the next few days. Please try not to exert yourself, rest and relax, and take it easy. If you are bleeding through more than 1-2 maxi pads every couple hours, this would be cause for concern to return to the ER for immediate management. Please call Dr. Bravo on Wednesday, to obtain an appointment sometime this week for follow-up and further management. Please return to the ED at any time if your symptoms change or worsen. Sepsis Event Note (ED) - Evaluation Sepsis Screening Result: No Definite Risk - Focused Exam Vital Signs: Vital Signs Temp Pulse Resp BP Pulse Ox 04/27/21 11:09 97.9 F 80 16 121/76 96 - My Orders Last 24 Hours: My Active Orders 04/27/21 11:21 Sodium Chloride 0.9% [Saline Flush] 10 ml FLUSH ASDIRECTED PRN Peripheral IV Insertion Adult [OM.PC] Stat 04/27/21 11:22 Peripheral IV Care [RC] . DIRECTED - Assessment/Plan Last 24 Hours: My Active Orders 04/27/21 11:21 Sodium Chloride 0.9% [Saline Flush] 10 ml FLUSH ASDIRECTED PRN Peripheral IV Insertion Adult [OM.PC] Stat 04/27/21 11:22 Peripheral IV Care [RC] . DIRECTED
--- NOTE | 2021-04-27 12:33 | US ---
First trimester obstetrical ultrasound: Multiple real-time images were obtained transvaginally. Comparison: Prior obstetrical ultrasound of 04/22/21. Dates: Current ultrasound: KAREN 12/10/20, gestational age 7 weeks 4 days Single intrauterine gestational sac is seen. pole is seen. Subchorionic hemorrhage is seen which is an interval change from prior exam. Maternal ovaries are not visualized. Measurements: [place]-rump length: 1.36 cm - 7 weeks 4 days Heart rate: 129 bpm Impression: 1. Single intrauterine gestation. Dates as noted above. 2. Moderate subchorionic hemorrhage which is an interval change from prior study. 3. Nonvisualized maternal ovaries. Diagnostic code #3
== END 2021-04-27 14:00 | disposition home or self-care (01) ==
LOC: JD.ED 11:02
DX: O20.0 Threatened abortion (principal); Z3A.01 Less than 8 weeks gestation of pregnancy; Z88.0 Allergy status to penicillin; Z91.010 Allergy to peanuts; Z91.013 Allergy to seafood
CPT/HCPCS: 36415; 36430; 76817; 76817-26; 81001; 84702; 85025; 86900; 86901; 99283; 99284-25; J2790

== ENCOUNTER 2021-05-06 22:46 | Emergency (ER) | payer MEDICAID | END 2021-05-06 23:27 | disposition left against medical advice (07) | LOC: JD.ED 22:46 | DX: O20.9 Hemorrhage in early pregnancy, unspecified (principal); Z53.21 Procedure and treatment not carried out due to patient leaving prior to being seen by health care provider ==

== ENCOUNTER 2021-05-25 20:44 | Emergency (ER) | payer MEDICAID ==
--- NOTE | 2021-05-25 21:03 | EDM.PDOC ---
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 Patient presents tonight with feelings of dizziness that are worse when she is getting ready to take a shower when she turns her head. Patient states her urine has been light yellow to clear in color recently and she denies any lightheadedness with standing. She denies any other neurological symptoms was complaining of having some lower abdominal cramping which she is worried about as far as a possible miscarriage. I have tried to reassure her that if she was having a miscarriage we cannot do much about that other than to hydrate her and encourage her to have bedrest. Patient states she is being seen by her OB doctor every week. She denies any dysuria... She denies any vaginal bleeding. Duration: Getting Worse Location: Reports: Abdomen Quality: Reports: Ache, Same as Previous Episode Severity: Mild Improves with: Reports: None Worsens with: Reports: None Associated Symptoms: Reports: Other (Dizziness.) Abdominal Pain Score (Numeric/FACES): 7 - Related Data Allergies Allergy/AdvReac Type Severity Reaction Status Date / Time latex Allergy Severe Shortness Verified 05/25/21 20:56 of Breath peanut Allergy Severe Anaphylactic Verified 05/25/21 20:56 Shock Penicillins Allergy Severe Anaphylactic Verified 05/25/21 20:56 Shock shellfish derived Allergy Severe Anaphylactic Verified 05/25/21 20:56 Shock Home Meds: Home Meds No122/Iron/Folic Acid [ Multi Tablet] 1 each PO DAILY 09/24/19 [History] Albuterol [Proventil HFA] 2 puff IH Q4HR PRN 07/21/20 [History] Ferrous Sulfate 325 mg PO DAILY 10/29/20 [History] Acetaminophen [Tylenol] 650 mg PO Q4H PRN tablet 12/20/20 [Rx] Ibuprofen [Motrin] 600 mg PO Q6H PRN tablet 12/20/20 [Rx] Doxylamine Succinate/Vit B6 [Diclegis Dr 10-10 mg Tablet] 1 tab PO Q8HR PRN 04/27/21 [History] Doxylamine Succinate/Vit B6 [Diclegis Dr 10-10 mg Tablet] 2 tab PO DAILY 04/27/21 [History] Progesterone Suppository 04/27/21 [History] Sulfamethoxazole/Trimethoprim [Bactrim Ds Tablet] 1 each PO BID #6 tablet 05/25/21 [Rx] Past Medical History - Past Health History Medical/Surgical History: Denies Medical/Surgical History Cardiovascular History: Reports: None Respiratory History: Reports: Asthma Gastrointestinal History: Reports: GERD Other Gastrointestinal History: Nausea Genitourinary History: Reports: UTI, Recurrent Other Genitourinary History: breast pain, burning with urination, dysuria 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: Reports: Endometriosis, , Spontaneous 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: AMENORRHEA, DERMOID CYST OF OVARY, GBS+ Musculoskeletal History: Reports: Other (See Below) Other Musculoskeletal History: right ankle sprain Neurological History: Reports: Headaches, Chronic Other Neuro History: DIZZINESS, SYNCOPE Psychiatric History: Reports: Anxiety, Depression Other Psychiatric History: off medication since being Endocrine/Metabolic History: Reports: Obesity/BMI 30+ Hematologic History: Reports: Anemia Immunologic History: Reports: None - Infectious Disease History Infectious Disease History: Reports: Chicken Pox, Mononucleosis, Novel Coronavirus (10/06) - Past Surgical History HEENT Surgical History: Reports: Oral Surgery Other HEENT Surgeries/Procedures: wisdom teeth removal GI Surgical History: Reports: Appendectomy Female Surgical History: Reports: D&C Other Female Surgeries/Procedures: miscarriage Social & Family History - Family History Family Medical History: No Pertinent Family History Cardiac: Reports: MD Respiratory: Reports: Asthma, COPD Neurological: Reports: CVA Psychiatric: Reports: Bipolar Oncologic: Reports: Bladder, Breast, Lung - Caffeine Use Caffeine Use: Reports: Tea - Living Situation & Occupation Living situation: Reports: Single, with Significant Other (Boyfriend), with Family ( ) Occupation: Unemployed ED ROS GENERAL - Review of Systems Review Of Systems: Comprehensive ROS is negative, except as noted in HPI. ED EXAM - Physical Exam Exam: See Below Exam Limited By: No Limitations General Appearance: Alert, No Apparent Distress Head: Normocephalic Neck: Supple, Full Range of Motion Respiratory/Chest: No Respiratory Distress, Lungs Clear, Normal Breath Sounds Cardiovascular: Regular Rate, Rhythm, No JVD GI/Abdominal Exam: Soft, No Distention, Tender Heart Tones: Not [place] Back Exam: No: CVA Tenderness (L), CVA Tenderness (R) Extremities: Normal Inspection Neurological: Alert, Normal Cognition Psychiatric: Normal Affect, Normal Mood Skin Exam: Warm, Dry Course - Vital Signs Text/Narrative:: Patient's urine is positive for +1 leukocytes. Since she is I am starting her on antibiotic. Since she has severe allergy to penicillin I am not giving her Keflex but will use 3 days of Bactrim. Patient is stating she is planning to follow-up with her OB either tomorrow or Wednesday. She knows she can return to emergency department if worse or she is having vaginal bleeding. Patient is a negative blood type and with her last ER visit did receive RhoGam. Patient refused any meclizine for her dizziness. Last Recorded V/S: Last Vital Signs Temp 98.7 F 05/25/21 20:57 Pulse 87 05/25/21 20:57 Resp 18 05/25/21 20:57 BP 112/72 05/25/21 20:57 Pulse Ox 100 05/25/21 20:57 Orthostatic Blood Pressure [ 109/75 Standing] Orthostatic Blood Pressure [ 117/74 Sitting] Orthostatic Blood Pressure [ 101/66 Supine] - Orders/Labs/Meds Orders: Active Orders 24 hr Category Date Time Status Orthostatic Vital Signs [RC] ASDIRECTED Care 05/25/21 21:17 Active Meclizine [Antivert] Med 05/25/21 21:17 Active 25 mg PO DAILY PRN Medication Orders Meclizine HCl (Meclizine 25 Mg Tab.Chew) 25 mg PO DAILY PRN PRN Reason: Dizziness Labs: Laboratory Tests 05/25/21 Range/Units 22:14 Urine Color Light yellow (Yellow) Urine Appearance Clear (Clear) Urine pH 6.5 (5.0-8.0) Ur Specific [place] 1.020 (1.005-1.030) Urine Protein Negative (Negative) Urine Glucose (UA) Negative (Negative) Urine Ketones Negative (Negative) Urine Occult Blood Negative (Negative) Urine Nitrite Negative (Negative) Urine Bilirubin Negative (Negative) Urine Urobilinogen 0.2 (0.2-1.0) Ur Leukocyte Esterase 1+ H (Negative) Meds: Medications Generic Name Dose Route Start Last Admin Trade Name Freq PRN Reason Stop Dose Admin Meclizine HCl 25 mg 05/25/21 21:17 Meclizine 25 Mg Tab.Chew PO DAILY PRN Dizziness Discontinued Medications Generic Name Dose Route Start Last Admin Trade Name Freq PRN Reason Stop Dose Admin Trimethoprim/Sulfamethoxazole 1 tab 05/25/21 23:23 Sulfamethoxazole/Trimethoprim 800-160 Mg Tab PO 05/25/21 23:24 ONETIME ONE Departure - Departure Time of Disposition: 23:32 Disposition: Home, Self-Care 01 Condition: Good Clinical Impression: Urinary tract infection, Dizziness - Discharge Information Instructions: Dizziness, [id number], Urinary Tract Infection, Adult, [id number] Referrals: Cresencio Bravo MD [Primary Care Provider] - Forms: ED Department Discharge Additional Instructions: Meds as prescribed. [id number] Bonine for dizziness if needed. 3 days of Bactrim. Follow-up with OB as soon as possible. Return to ER symptoms are worse. Sepsis Event Note (ED) - Evaluation Sepsis Screening Result: No Definite Risk - Focused Exam Vital Signs: Vital Signs Temp Pulse Resp BP Pulse Ox 05/25/21 20:57 98.7 F 87 18 112/72 100 - My Orders Last 24 Hours: My Active Orders 05/25/21 21:17 Orthostatic Vital Signs [RC] ASDIRECTED Meclizine [Antivert] 25 mg PO DAILY PRN - Assessment/Plan Last 24 Hours: My Active Orders 05/25/21 21:17 Orthostatic Vital Signs [RC] ASDIRECTED Meclizine [Antivert] 25 mg PO DAILY PRN
[2021-05-25] MEDS ORDERED: Sulfamethoxazole/Trimethoprim 800-160 MG Tab PO ONE (23:23)
== END 2021-05-25 23:52 | disposition home or self-care (01) ==
LOC: JD.ED 20:44
DX: O23.41 Unspecified infection of urinary tract in pregnancy, first trimester (principal); O99.891 Other specified diseases and conditions complicating pregnancy; R42 Dizziness and giddiness; K21.9 Gastro-esophageal reflux disease without esophagitis; Z79.899 Other long term (current) drug therapy; Z88.0 Allergy status to penicillin; Z91.040 Latex allergy status; Z91.010 Allergy to peanuts; Z91.013 Allergy to seafood; Z3A.12 12 weeks gestation of pregnancy
CPT/HCPCS: 81003; 99284; A9270; 99283

== ENCOUNTER 2021-12-02 14:30 | Inpatient (IN) | payer MEDICAID ==
[2021-12-02] MEDS ORDERED: Sodium Chloride 0.9% 10 ML Syringe FLUSH PRN (15:04)
[2021-12-02] MEDS ORDERED: Nalbuphine 10 MG/1 ML Vial IVPUSH PRN (15:04)
[2021-12-02] MEDS ORDERED: Lidocaine 1% 50 ML MDV INJECT ONE (15:04)
[2021-12-02] MEDS ORDERED: Oxytocin/Lactated Ringers 10 UNIT/1,000 ML BAG IV SCH ×2 (15:15)
[2021-12-02] MEDS: Lactated Ringers 1,000 ML IV SCH ×2 (16:36→17:34)
[2021-12-02] MEDS ORDERED: Magnesium Sulfate/Water 2 GM in Premix Bag 1 BAG IV ONE (20:30)
[2021-12-02] MEDS ORDERED: Lidocaine 1% 50 ML MDV ONE (20:52)
[2021-12-03] MEDS ORDERED: Acetaminophen 325 MG Tab PO PRN (00:49)
[2021-12-03] MEDS ORDERED: Witch Hazel Medicated Pads 40/Jar TOP PRN (00:49)
[2021-12-03] MEDS ORDERED: Docusate Sodium 100 MG Cap PO PRN (00:49)
[2021-12-03] MEDS ORDERED: Benzocaine/Menthol 20%-0.5% Spray 78 GM Cannister TOP PRN (00:49)
[2021-12-03] MEDS: Ibuprofen 600 MG Tab PO PRN ×3 (02:05→19:33)
[2021-12-03] MEDS ORDERED: Measles, Mumps & Rubella Vaccine 0.5 ML SDV SUBCUT ONE (02:53)
[2021-12-03] MEDS: Prenatal Multivitamin with Calcium/Folic Acid/Iron Tab PO SCH (10:21)
[2021-12-04] MEDS: Ibuprofen 600 MG Tab PO PRN (00:23)
[2021-12-04] MEDS: Prenatal Multivitamin with Calcium/Folic Acid/Iron Tab PO SCH (11:51)
== END 2021-12-04 10:50 | disposition home or self-care (01) | DRG 807 ==
LOC: JD.OB 14:30 → JD.OBCHECK 14:30 → JD.OB 15:04 → JD.OBCHECK 15:31 → JD.OB 16:39 → OBSVTOIN 12-03 00:15 → JD.OB 12-03 00:16
PROVIDERS: ADMIT Obstetrics & Gynecology; ATTEND Obstetrics & Gynecology
PROC: 10E0XZZ Delivery of Products of Conception, External Approach (ICD-10-PCS; principal; 2021-12-03)
PROC: 3E0334Z Introduction of Serum, Toxoid and Vaccine into Peripheral Vein, Percutaneous Approach (ICD-10-PCS; 2021-12-03)
DX: O76 Abnormality in fetal heart rate and rhythm complicating labor and delivery (principal); Z37.0 Single live birth; Z3A.38 38 weeks gestation of pregnancy; O77.0 Labor and delivery complicated by meconium in amniotic fluid; O99.344 Other mental disorders complicating childbirth; F41.8 Other specified anxiety disorders; O99.52 Diseases of the respiratory system complicating childbirth; J45.909 Unspecified asthma, uncomplicated; Z29.13 Encounter for prophylactic Rho(D) immune globulin; O99.02 Anemia complicating childbirth; D64.9 Anemia, unspecified; O99.214 Obesity complicating childbirth; E66.9 Obesity, unspecified
CPT/HCPCS: 36415; 59025; 59409; 80053; 80306; 83735; 84443; 84484; 85025; 85461; 86592; 86850; 86900; 86901; 93005; A9270-GY; J2300; J2590; J2790; J3475; J7120

== ENCOUNTER 2022-02-17 15:27 | Emergency (ER) | payer MEDICAID ==
[2022-02-17] MEDS ORDERED: Sodium Chloride 0.9% 10 ML Syringe FLUSH PRN (15:57)
[2022-02-17] MEDS ORDERED: Ketorolac 30 MG/ML SDV IVPUSH ONE (16:52)
[2022-02-17] MEDS ORDERED: Ibuprofen 600 MG Tab PO ONE (16:55)
== END 2022-02-17 18:20 | disposition home or self-care (01) ==
LOC: JD.ED 15:27
DX: R07.89 Other chest pain (principal); Z91.040 Latex allergy status; Z88.0 Allergy status to penicillin; Z91.013 Allergy to seafood; Z88.1 Allergy status to other antibiotic agents; Z91.010 Allergy to peanuts
CPT/HCPCS: 36415; 71045; 80053; 83735; 84484; 85025; 85379; 86140; 93005; 99285; A9270; J3490

== ENCOUNTER 2022-08-25 03:17 | Emergency (ER) | payer MEDICAID ==
[2022-08-25] MEDS ORDERED: Acetaminophen/HYDROcodone 325-5 MG Tab PO ONE (03:46)
[2022-08-25 04:29] LABS: ESTIMATED GFR 136 mL/min (>60)
== END 2022-08-25 05:53 | disposition home or self-care (01) ==
LOC: JD.ED 03:17
DX: R07.89 Other chest pain (principal); E66.9 Obesity, unspecified; Z68.37 Body mass index [BMI] 37.0-37.9, adult; Z91.040 Latex allergy status; Z91.010 Allergy to peanuts; Z88.0 Allergy status to penicillin; Z91.013 Allergy to seafood
CPT/HCPCS: 36415; 71045; 80053; 84484; 85025; 85379; 93005; 99285; A9270

== ENCOUNTER 2023-01-28 12:45 | Emergency (ER) | payer MEDICAID ==
[2023-01-28] MEDS ORDERED: Ondansetron 4 MG/2 ML SDV IVPUSH ONE (13:06)
[2023-01-28] MEDS ORDERED: Sodium Chloride 0.9% 1,000 ML IV ONE (13:06)
[2023-01-28] MEDS ORDERED: Haloperidol Lactate 5 MG/ML SDV IM ONE (13:06)
[2023-01-28] MEDS ORDERED: Ketorolac 30 MG/ML SDV IVPUSH STA (13:06)
== END 2023-01-28 14:55 | disposition home or self-care (01) ==
LOC: JD.ED 12:45
DX: G43.109 Migraine with aura, not intractable, without status migrainosus (principal); F17.293 Nicotine dependence, other tobacco product, with withdrawal; E66.9 Obesity, unspecified; Z68.36 Body mass index [BMI] 36.0-36.9, adult; Z86.16 Personal history of COVID-19; Z88.0 Allergy status to penicillin; Z91.010 Allergy to peanuts; Z91.040 Latex allergy status; Z91.013 Allergy to seafood; Z88.1 Allergy status to other antibiotic agents; Z79.899 Other long term (current) drug therapy
CPT/HCPCS: 70450; 82947; 96361; 96372; 96374; 96375; 99284; J1630; J1885; J2405; J7030

== ENCOUNTER 2023-05-02 15:29 | Emergency (ER) | payer MEDICAID ==
[2023-05-02] MEDS ORDERED: Sodium Chloride 0.9% 10 ML Syringe FLUSH PRN ×2 (16:02→17:38)
[2023-05-02 16:50] LABS: BASOPHILS ABSOLUTE AUTO 0.06 K/mm3 (0.01-0.08); BASOPHILS PERCENT AUTO 0.6 % (0.1-1.2); EOSINOPHILS ABSOLUTE AUTO 0.13 K/mm3 (0.04-0.36); EOSINOPHILS PERCENT AUTO 1.3 (0.7-5.8); HEMATOCRIT 42.3 % (34.1-44.9); HEMOGLOBIN 13.6 gm/dl (11.2-15.7); IMMATURE GRAN ABSOLUTE AUTO 0.01 K/mm3 (0.00-0.10); IMMATURE GRAN PERCENT AUTO 0.1 % (<=1.0); LYMPHOCYTES ABSOLUTE AUTO 2.96 K/mm3 (1.18-3.74); LYMPHOCYTES PERCENT AUTO 28.8 % (19.3-51.7); MEAN CORPUSCULAR HEMOGLOBIN 27.1 pg (25.6-32.2); MEAN CORPUSCULAR HGB CONC 32.2 g/dl (32.2-35.5); MEAN CORPUSCULAR VOLUME 84.3 fl (79.4-94.8); MEAN PLATELET VOLUME 11.4 fl (9.4-12.3); MONOCYTES ABSOLUTE AUTO 1.13 K/mm3 (0.24-0.36); NEUTROPHILS ABSOLUTE AUTO 5.97 K/mm3 (1.56-6.13); NEUTROPHILS PERCENT AUTO 58.2 % (34.0-71.1); PLATELET COUNT,PLT 206 K/mm3 (182-369); RED BLOOD CELL COUNT 5.02 M/mm3 (3.98-5.22); WHITE BLOOD CELL COUNT,WBC 10.26 K/mm3 (3.98-10.04)
[2023-05-02 17:11] LABS: INR 1.02; PROTHROMBIN TIME 10.9 SECONDS (9.7-12.0)
[2023-05-02 17:12] LABS: PTT,PARTIAL THROMBOPLSTIN TIME 26.2 SECONDS (21.7-31.4)
[2023-05-02 17:27] LABS: D-DIMER QUANTITATIVE 1.14 mg/L (0.19-0.50)
[2023-05-02] MEDS ORDERED: Iopamidol 755 Mg/ML 100 ML Bottle IVPUSH ONE (17:38)
[2023-05-02 17:41] LABS: ALANINE AMINOTRANSFERASE,ALT 43 U/L (14-59); ALBUMIN 3.9 g/dl (3.4-5.0); ALKALINE PHOSPHATASE 92 U/L (46-116); ANION GAP 14.7 (5-15); ASPARTATE AMNIOTRANSFERASE,AST 25 U/L (15-37); BILIRUBIN TOTAL 0.3 mg/dL (0.2-1.0); BLOOD UREA NITROGEN,BUN 10 mg/dL (7-18); BUN/CREATININE RATIO 12.5 (14-18); CALCIUM 9.2 mg/dL (8.5-10.1); CARBON DIOXIDE,CO2 26 mEq/L (21-32); CHLORIDE,CL 106 mEq/L (98-107); CREATININE 0.8 mg/dL (0.55-1.02); ESTIMATED GFR 106 mL/min (>60); GLUCOSE RANDOM 91 mg/dL (70-99); MAGNESIUM 1.8 mg/dL (1.8-2.4); POTASSIUM,K 3.7 mEq/L (3.5-5.1); PROTEIN TOTAL,TP 7.9 g/dl (6.4-8.2); SODIUM,NA 143 mEq/L (136-145)
[2023-05-02 17:42] LABS: TROPONIN I HIGH SENSITIVITY < 4 pg/mL (<=51)
[2023-05-02] MEDS ORDERED: Sodium Chloride 0.9% 45 ML IV SCH (17:45)
== END 2023-05-02 18:51 | disposition home or self-care (01) ==
LOC: SUPCPDRO 15:29 → JD.ED 15:29
DX: R07.81 Pleurodynia (principal); R79.1 Abnormal coagulation profile; J45.909 Unspecified asthma, uncomplicated; E66.9 Obesity, unspecified; Z86.16 Personal history of COVID-19; Z91.040 Latex allergy status; Z91.010 Allergy to peanuts; Z88.0 Allergy status to penicillin; Z91.013 Allergy to seafood; Z88.1 Allergy status to other antibiotic agents; Z79.899 Other long term (current) drug therapy
CPT/HCPCS: 36415; 71045; 80053; 83735; 84484; 85025; 85379; 85610; 85730; 93005; 99285; J3490

== ENCOUNTER 2023-12-06 09:34 | Emergency (ER) | payer MEDICAID ==
[2023-12-06] MEDS: Ondansetron 4 MG Tab.DIS PO ONE (10:15)
[2023-12-06 10:28] LABS: BASOPHILS ABSOLUTE AUTO 0.1 K/mm3 (0.0-0.2); BASOPHILS PERCENT AUTO 0.8 % (0.0-1.0); EOSINOPHILS ABSOLUTE AUTO 0.1 K/mm3 (0.0-0.4); EOSINOPHILS PERCENT AUTO 1.5 % (0.0-6.0); HEMATOCRIT 42.1 % (37.0-47.0); HEMOGLOBIN 13.7 gm/dl (12.0-16.0); IMMATURE GRAN ABSOLUTE AUTO 0.02 K/mm3 (0.00-0.05); IMMATURE GRAN PERCENT AUTO 0.2 % (0.0-0.4); LYMPHOCYTES ABSOLUTE AUTO 2.3 K/mm3 (1.0-4.8); LYMPHOCYTES PERCENT AUTO 28.1 % (24.0-44.0); MEAN CORPUSCULAR HEMOGLOBIN 28.1 pg (28.0-32.0); MEAN CORPUSCULAR HGB CONC 32.5 g/dl (32.0-36.0); MEAN CORPUSCULAR VOLUME 86.3 fl (83.0-99.0); MEAN PLATELET VOLUME 10.3 fl (9.4-12.3); MONOCYTES ABSOLUTE AUTO 0.6 K/mm3 (0.0-0.8); MONOCYTES PERCENT AUTO 7.6 % (0.0-8.0); NEUTROPHILS ABSOLUTE AUTO 5.1 K/mm3 (1.8-7.7); NEUTROPHILS PERCENT AUTO 61.8 % (41.0-71.0); PLATELET COUNT,PLT 184 K/mm3 (150-400); RED BLOOD CELL COUNT 4.88 M/mm3 (4.10-5.30); WHITE BLOOD CELL COUNT,WBC 8.27 K/mm3 (3.9-11.3)
[2023-12-06 10:33] LABS: APPEARANCE,URINE CLEAR (Clear); BILIRUBIN,URINE NEGATIVE (Negative); COLOR,URINE YELLOW (Yellow); GLUCOSE,URINE NEGATIVE (Negative); KETONES,URINE NEGATIVE (Negative); LEUKOCYTE ESTERASE,URINE TRACE (Negative); NITRITE,URINE NEGATIVE (Negative); OCCULT BLOOD,URINE NEGATIVE (Negative); PROTEIN,URINE NEGATIVE (Negative); UROBILINOGEN,URINE 0.2 (0.2-1.0)
[2023-12-06 10:53] LABS: RBC,URINE 0-5 /hpf (0-5); WBC,URINE 0-5 /hpf (0-5)
[2023-12-06 10:54] LABS: A/G RATIO 0.9 (1-2); ANION GAP 12.6 (5-15); BILIRUBIN TOTAL 0.3 mg/dL (0.2-1.0); BUN/CREATININE RATIO 16.7 (14-18); CALCIUM 9.2 mg/dL (8.5-10.1); CREATININE 0.6 mg/dL (0.55-1.02); EST CRCL DRUG DOSING (CG) 125.92 mL/min; POTASSIUM,K 3.6 mEq/L (3.5-5.1); PROTEIN TOTAL,TP 8.3 g/dl (6.4-8.2)
[2023-12-06 10:54] LABS: BACTERIA,URINE NOT SEEN /hpf (FEW); EPITHELIAL CELLS,URINE 0-5 /hpf (0-5); MUCUS,URINE NOT SEEN /hpf (FEW)
== END 2023-12-06 13:18 | disposition home or self-care (01) ==
LOC: JD.ED 09:34
DX: K80.20 Calculus of gallbladder without cholecystitis without obstruction (principal); R10.9 Unspecified abdominal pain; F17.210 Nicotine dependence, cigarettes, uncomplicated; E66.9 Obesity, unspecified; Z68.39 Body mass index [BMI] 39.0-39.9, adult; Z86.16 Personal history of COVID-19; Z91.040 Latex allergy status; Z91.018 Allergy to other foods; Z91.013 Allergy to seafood; Z88.0 Allergy status to penicillin; Z88.1 Allergy status to other antibiotic agents
CPT/HCPCS: 36415; 76705; 80053; 81001; 81025; 83690; 85025; 99284; A9270

== ENCOUNTER 2024-01-12 08:51 | Day surgery (SDC) | payer MEDICAID ==
[~2024-01-12 08:51] MED LIST changes: -Famotidine 20 MG/2 ML SDV IVPUSH ONE; -Famotidine 20 MG/2 ML SDV ONE; -Ibuprofen 600 MG Tab PO PRN; -Ketamine 500 mg/10 ML MDV ONE; +Lidocaine 1% 4 ML ONE; -Lidocaine 1%/Sod Bicarbonate in NS 8.4% 1 ML Syringe IDERM PRN; -Ondansetron 4 MG/2 ML SDV ONE; +Rocuronium 50 MG/5 ML Vial ONE; -Scopolamine 1.5 MG Transdermal Patch TRDERM PRN; +Sodium Chloride 0.9% 10 ML Syringe FLUSH SCH; -Sodium Chloride 0.9% 100 ML ONE; -ceFAZolin 1 GM Vial ONE; -fentaNYL 100 MCG/2 ML SDV IVPUSH PRN; -fentaNYL 100 MCG/2 ML SDV ONE; +fentaNYL 250 MCG/5 ML SDV ONE
[2024-01-12] MEDS: Lactated Ringers 1,000 ML IV SCH (09:25)
[2024-01-12] MEDS ORDERED: Ondansetron 4 MG/2 ML SDV ONE ×2 (09:48→10:39)
[2024-01-12] MEDS: Acetaminophen 325 MG Tab PO SCH (09:52)
[2024-01-12] MEDS: Scopalamine 1mg/3day Transdermal Patch TRDERM SCH (09:53)
[2024-01-12] MEDS: Gabapentin 300 MG Cap PO SCH (09:53)
[2024-01-12] MEDS: Clindamycin Phosphate in D5W 900 MG in Premix Bag 1 BAG IV ONE (09:56)
[2024-01-12] MEDS ORDERED: EPINEPHrine 1 MG/ML SDV ONE (10:10)
[2024-01-12] MEDS ORDERED: Propofol 200 MG/20 ML SDV ONE ×3 (10:38→11:32)
[2024-01-12] MEDS ORDERED: dexmedeTOMIDine HCl 200 MCG/2 ML SDV ONE (10:39)
[2024-01-12] MEDS: Lidocaine 1% 30 ML SDV ONE (11:20)
[2024-01-12] MEDS: Bupivacaine 0.5% 30 ML SDV ONE (11:20)
[2024-01-12] MEDS ORDERED: Dexamethasone 4 MG/ML 5 ML MDV ONE (11:23)
[2024-01-12] MEDS ORDERED: diphenhydrAMINE 50 MG/ML SDV ONE (11:34)
[2024-01-12] MEDS ORDERED: HYDROmorphone 0.5 MG/0.5 ML Syringe ONE ×2 (11:36→11:37)
[2024-01-12] MEDS ORDERED: Lactated Ringers 1,000 ML ONE (11:47)
[2024-01-12] MEDS ORDERED: fentaNYL 100 MCG/2 ML SDV ONE (12:23)
[2024-01-12] MEDS: HYDROmorphone 0.5 MG/0.5 ML Syringe ONE (12:25)
[2024-01-12] MEDS ORDERED: fentaNYL 100 MCG/2 ML SDV IVPUSH PRN (12:31)
[2024-01-12] MEDS ORDERED: Acetaminophen/oxyCODONE 325-5 MG Tab PO PRN (12:37)
[2024-01-12] MEDS ORDERED: Ibuprofen 600 MG Tab PO PRN (12:38)
[2024-01-12] MEDS ORDERED: HYDROmorphone 0.5 MG/0.5 ML Syringe IVPUSH ONE (12:45)
[2024-01-12] MEDS: LORazepam 0.5 MG Tab PO ONE (13:28)
== END 2024-01-12 15:06 | disposition home or self-care (01) ==
LOC: JD.SDS 08:51
PROVIDERS: ATTEND Surgery
DX: K80.10 Calculus of gallbladder with chronic cholecystitis without obstruction (principal); K21.9 Gastro-esophageal reflux disease without esophagitis; F41.9 Anxiety disorder, unspecified; F32.A Depression, unspecified; E66.9 Obesity, unspecified; Z68.41 Body mass index [BMI] 40.0-44.9, adult; Z87.891 Personal history of nicotine dependence; Z79.899 Other long term (current) drug therapy; Z88.0 Allergy status to penicillin; Z91.010 Allergy to peanuts; Z91.040 Latex allergy status
CPT/HCPCS: 47562; 64488; 81025; A9270; J0171; J0665; J0736; J1100; J1170; J1200; J1885; J2250; J2405; J2704; J3010; J7030; J7120; 00790; J3490

== ENCOUNTER 2024-01-13 11:20 | Emergency (ER) | payer MEDICAID ==
[2024-01-13 12:49] LABS: BASOPHILS ABSOLUTE AUTO 0.1 K/mm3 (0.0-0.2); BASOPHILS PERCENT AUTO 0.5 % (0.0-1.0); EOSINOPHILS PERCENT AUTO 0.4 % (0.0-6.0); HEMATOCRIT 38.1 % (37.0-47.0); HEMOGLOBIN 12.3 gm/dl (12.0-16.0); IMMATURE GRAN ABSOLUTE AUTO 0.04 K/mm3 (0.00-0.05); IMMATURE GRAN PERCENT AUTO 0.4 % (0.0-0.4); LYMPHOCYTES ABSOLUTE AUTO 3.1 K/mm3 (1.0-4.8); LYMPHOCYTES PERCENT AUTO 28.3 % (24.0-44.0); MEAN CORPUSCULAR HEMOGLOBIN 27.6 pg (28.0-32.0); MEAN CORPUSCULAR HGB CONC 32.3 g/dl (32.0-36.0); MEAN CORPUSCULAR VOLUME 85.6 fl (83.0-99.0); MEAN PLATELET VOLUME 10.5 fl (9.4-12.3); MONOCYTES ABSOLUTE AUTO 0.9 K/mm3 (0.0-0.8); MONOCYTES PERCENT AUTO 8.3 % (0.0-8.0); NEUTROPHILS ABSOLUTE AUTO 6.9 K/mm3 (1.8-7.7); NEUTROPHILS PERCENT AUTO 62.1 % (41.0-71.0); PLATELET COUNT,PLT 186 K/mm3 (150-400); RED BLOOD CELL COUNT 4.45 M/mm3 (4.10-5.30)
[2024-01-13 13:21] LABS: A/G RATIO 0.9 (1-2); ALANINE AMINOTRANSFERASE,ALT 42 U/L (14-59); ALBUMIN 3.6 g/dl (3.4-5.0); ALKALINE PHOSPHATASE 78 U/L (46-116); ANION GAP 13.6 (5-15); ASPARTATE AMNIOTRANSFERASE,AST 27 U/L (15-37); BILIRUBIN TOTAL 0.2 mg/dL (0.2-1.0); BLOOD UREA NITROGEN,BUN 6 mg/dL (7-18); BUN/CREATININE RATIO 8.6 (14-18); CALCIUM 8.9 mg/dL (8.5-10.1); CARBON DIOXIDE,CO2 28 mEq/L (21-32); CHLORIDE,CL 104 mEq/L (98-107); CREATININE 0.7 mg/dL (0.55-1.02); EST CRCL DRUG DOSING (CG) 107.01 mL/min; ESTIMATED GFR 124 mL/min (>60); GLUCOSE RANDOM 99 mg/dL (70-99); POTASSIUM,K 3.6 mEq/L (3.5-5.1); PROTEIN TOTAL,TP 7.5 g/dl (6.4-8.2); SODIUM,NA 142 mEq/L (136-145)
[2024-01-13 13:34] LABS: TROPONIN I HIGH SENSITIVITY < 4 pg/mL (<=51)
[2024-01-13] MEDS: diphenhydrAMINE 50 MG/ML SDV IVPUSH ONE (14:28)
[2024-01-13] MEDS: methylPREDNISolone Sodium Succinate 40 MG/1 ML SDV IVPUSH ONE (14:28)
[2024-01-13] MEDS: Acetaminophen/Codeine 300-30 MG Tab PO ONE (14:55)
[2024-01-13] MEDS: Sodium Chloride 0.9% 100 ML IV SCH (15:30)
[2024-01-13] MEDS: Iopamidol 755 MG/ML 150 ML Bottle IV ONE (15:30)
[2024-01-13] MEDS: Sodium Chloride 0.9% 10 ML Syringe FLUSH PRN (15:30)
== END 2024-01-13 16:35 | disposition home or self-care (01) ==
LOC: SUPCPDRO 11:20 → JD.ED 11:20
DX: R07.89 Other chest pain (principal); R06.02 Shortness of breath; J45.909 Unspecified asthma, uncomplicated; E66.9 Obesity, unspecified; Z88.0 Allergy status to penicillin; Z91.010 Allergy to peanuts; Z91.040 Latex allergy status; Z91.013 Allergy to seafood; Z88.8 Allergy status to other drugs, medicaments and biological substances; Z79.84 Long term (current) use of oral hypoglycemic drugs; Z79.899 Other long term (current) drug therapy; Z86.16 Personal history of COVID-19; Z90.49 Acquired absence of other specified parts of digestive tract; Z68.41 Body mass index [BMI] 40.0-44.9, adult
CPT/HCPCS: 36415; 71046; 71275; 80053; 84484; 84703; 85025; 85379; 93005; 96374; 96375; 99285; A9270; J1200; J2920; J3490; Q9967; 93010; 99284

== ENCOUNTER 2024-08-29 10:43 | Emergency (ER) | payer BC, MEDICAID ==
[2024-08-29 11:35] LABS: BASOPHILS ABSOLUTE AUTO 0.1 K/mm3 (0.0-0.2); BASOPHILS PERCENT AUTO 0.7 % (0.0-1.0); EOSINOPHILS ABSOLUTE AUTO 0.2 K/mm3 (0.0-0.4); EOSINOPHILS PERCENT AUTO 2.1 % (0.0-6.0); HEMATOCRIT 43.8 % (37.0-47.0); HEMOGLOBIN 14.3 gm/dl (12.0-16.0); IMMATURE GRAN ABSOLUTE AUTO 0.01 K/mm3 (0.00-0.05); IMMATURE GRAN PERCENT AUTO 0.1 % (0.0-0.4); LYMPHOCYTES ABSOLUTE AUTO 2.6 K/mm3 (1.0-4.8); LYMPHOCYTES PERCENT AUTO 31.2 % (24.0-44.0); MEAN CORPUSCULAR HEMOGLOBIN 27.8 pg (28.0-32.0); MEAN CORPUSCULAR HGB CONC 32.6 g/dl (32.0-36.0); MEAN PLATELET VOLUME 10.6 fl (9.4-12.3); MONOCYTES ABSOLUTE AUTO 0.6 K/mm3 (0.0-0.8); NEUTROPHILS PERCENT AUTO 58.9 % (41.0-71.0); PLATELET COUNT,PLT 192 K/mm3 (150-400); RED BLOOD CELL COUNT 5.15 M/mm3 (4.10-5.30); WHITE BLOOD CELL COUNT,WBC 8.46 K/mm3 (3.9-11.3)
[2024-08-29 11:49] LABS: A/G RATIO 0.9 (1-2); ALANINE AMINOTRANSFERASE,ALT 30 U/L (14-59); ALBUMIN 3.9 g/dl (3.4-5.0); ALKALINE PHOSPHATASE 105 U/L (46-116); ANION GAP 13.8 (5-15); ASPARTATE AMNIOTRANSFERASE,AST 21 U/L (15-37); BILIRUBIN TOTAL 0.4 mg/dL (0.2-1.0); BLOOD UREA NITROGEN,BUN 10 mg/dL (7-18); BUN/CREATININE RATIO 14.3 (14-18); CALCIUM 9.6 mg/dL (8.5-10.1); CARBON DIOXIDE,CO2 25 mEq/L (21-32); CHLORIDE,CL 104 mEq/L (98-107); CREATININE 0.7 mg/dL (0.55-1.02); EST CRCL DRUG DOSING (CG) 107.01 mL/min; ESTIMATED GFR 124 mL/min (>60); GLUCOSE RANDOM 99 mg/dL (70-99); POTASSIUM,K 3.8 mEq/L (3.5-5.1); PROTEIN TOTAL,TP 8.3 g/dl (6.4-8.2); SODIUM,NA 139 mEq/L (136-145); TROPONIN I HIGH SENSITIVITY < 4 pg/mL (<=51)
[2024-08-29] MEDS: Ketorolac 30 MG/ML SDV IVPUSH ONE (12:13)
[2024-08-29] MEDS: Metoclopramide 10 MG/2 ML SDV IVPUSH ONE (12:13)
[2024-08-29] MEDS: diphenhydrAMINE 50 MG/ML SDV IVPUSH ONE (12:13)
[2024-08-29] MEDS: Sodium Chloride 0.9% 100 ML IV SCH (12:32)
[2024-08-29] MEDS: Sodium Chloride 0.9% 10 ML Syringe FLUSH ONE (12:32)
[2024-08-29] MEDS: Iopamidol 755 Mg/ML 100 ML Bottle IVPUSH ONE (12:32)
== END 2024-08-29 13:07 | disposition home or self-care (01) ==
LOC: JD.ED 10:43
DX: R07.89 Other chest pain (principal); R51.9 Headache, unspecified; J45.909 Unspecified asthma, uncomplicated; E66.9 Obesity, unspecified; Z68.39 Body mass index [BMI] 39.0-39.9, adult; Z86.16 Personal history of COVID-19; Z90.49 Acquired absence of other specified parts of digestive tract; Z79.84 Long term (current) use of oral hypoglycemic drugs; Z79.899 Other long term (current) drug therapy; Z91.040 Latex allergy status; Z91.018 Allergy to other foods; Z88.0 Allergy status to penicillin; Z91.013 Allergy to seafood; Z88.1 Allergy status to other antibiotic agents
CPT/HCPCS: 36415; 71275; 80053; 81025; 84484; 85025; 85379; 93005; 96374; 96375; 99285; J1200; J1885; J2765; J3490; Q9967